=== PATIENT | male | born 1995 | race Caucasian/White ===

== ENCOUNTER 2016-09-16 19:41 | Inpatient (IN) | payer MEDICARE, MEDICAID ==
[~2016-09-16] VITALS: Ht 177.8 cm; Wt 147.6 kg
[~2016-09-16 19:41] MED LIST: AMOX-358 PO; BENZ200C25 PO; CARB15DR87 OT; CEFD300C3 PO; CLOM25CA2 PO; DICY10CA26; GUAN3TAB PO; MELA1TAB2 PO; MTR250T; OXCA300T4 PO; PRD20T PO; SULF1TAB38; TOPI200T19 PO
--- OUTSIDE RECORDS SUMMARY | 2016-09-16 19:46 | XMS REPORT | Continuity of Care Document ---
Author Author [facility] Organization [facility] Address Unknown Phone Unavailable Care Team Providers Care Staff Development Nurse Name Role Phone DARREN HOOKER DO PCP Insurance Providers Payer Name Policy Number Subscriber Name Relationship [facility] [employer] [id number] Keven Min E 18 Self / Same As Patient s Medicare [id number] Keven Min 18 Self / Same As Patient Advance Directives Directive Response Recorded Date/Time Advance Directives No 09/10/14 10:34pm Health Care Power of Global Recruiter No 09/10/14 10:34pm Organ Donor No 09/10/14 10:34pm Resuscitation Status Full Code 09/10/14 10:34pm Problems Medical Problems Problem Onset Date Status Upper respiratory infection Unknown Active Fever Unknown Active Post-tussive emesis Unknown Active Medications Medication Dose Route Sig Days/Qty Instructions Order Date Discontinued Date Status Trimethoprim/Sulfamethoxazole 11/10/07 05/16/10 Discontinued Metronidazole 11/10/07 05/16/10 Discontinued Dicyclomine HCl 11/10/07 05/16/10 Discontinued Topiramate 200 Mg PO BEDTIME 05/16/10 Active Oxcarbazepine 600 Mg PO TWICE A DAY 09/10/14 Active Guanfacine Hcl 3 Mg PO BEDTIME 09/10/14 Active Pyridoxine/Melatonin 10 Mg PO BEDTIME 09/10/14 Active Clomipramine Hcl 25 Mg PO BEDTIME 09/10/14 Active Benzonatate (Tessalon Perles) 1 Each PO THREE TIMES A DAY PRN COUGH 20 Qty 09/10/14 Active Social History Social History Problem Response Recorded Date/Time Alcohol Use Denies Use 09/10/2014 10:34pm Recreational Drug Use No 09/10/2014 10:34pm Recent Foreign Travel No 09/10/2014 10:34pm Sexually Transmitted Disease No 09/10/2014 10:34pm Smoking Status Never a Smoker 09/10/2014 10:34pm Query Response Start Date Stop Date Smoking Status Never a Smoker Hospital Discharge Instructions No hospital discharge instructions. Plan of Care No plan of care. Functional Status No functional status results. Allergies, Adverse Reactions, Alerts Allergen Type Severity Reaction Status Last Updated No Known Drug Allergies Allergy Unknown Active 11/10/07 Immunizations No immunization records. Vital Signs Acute Vital Signs Vital Response Date/Time Temperature (Fahrenheit) 100 degrees F (97.6 - 99.5) Temperature (Calculated Celsius) 37.7808 degrees C (36.4 - 37.5) Temperature Source Temporal Pulse Rate (adult) 95 bpm (60 - 90) Respiratory Rate 18 bpm (12 - 24) O2 Sat by Pulse Oximetry 97 % (88 - 100) Blood Pressure 162/96 mm Hg Pain Pain Intensity 5 Height (Feet) 5 feet Height (Inches) 10 inches Height (Calculated Centimeters) 177.379339 cm Weight (Pounds) 303 pounds Weight (Calculated Kilograms) 137.493397 kilograms Calculated BMI 43.47 Results No known relevant diagnostic tests, laboratory data and/or discharge summary. Procedures No known history of procedures. Encounters Encounter Location Date/Time Departed Emergency Room Via [facility] 09/10/14 10:08pm Recent Diagnosis
[2016-09-16] MEDS ORDERED: KETOROLAC 30 MG/ML VIAL IVP STA (20:52)
[2016-09-16] MEDS ORDERED: FAMOTIDINE 20MG/2ML IV (PEPCID) IV STA (20:52)
[2016-09-16] MEDS ORDERED: LACTATED RINGERS 1,000 ML IV ONE (20:52)
[2016-09-16 21:00] LABS: BASOPHILS # (AUTO) 0.1 10^3/uL (0.0-0.1); BASOPHILS % (AUTO) 0 % (0-10); EOSINOPHILS % (AUTO) 0 % (0-10); LYMPHOCYTES # (AUTO) 3.2 X 10^3 (1.0-4.0); LYMPHOCYTES % (AUTO) 21 % (12-44); MEAN CORPUSCULAR HEMOGLOBIN 28 PG (25-34); MEAN CORPUSCULAR HGB CONC 35 G/DL (32-36); MEAN CORPUSCULAR VOLUME 80 FL (80-99); MEAN PLATELET VOLUME 11.3 FL (7.4-10.4); MONOCYTES # (AUTO) 1.1 X 10^3 (0.0-1.0); MONOCYTES % (AUTO) 7 % (0-12); NEUTROPHILS # (AUTO) 10.5 X 10^3 (1.8-7.8); NEUTROPHILS % (AUTO) 71 % (42-75); PLATELET COUNT 248 10^3/uL (130-400); RED BLOOD COUNT 5.32 10^6/uL (4.35-5.85); RED CELL DISTRIBUTION WIDTH 13.2 % (10.0-14.5); WHITE BLOOD COUNT 14.8 10^3/uL (4.3-11.0)
[2016-09-16] MEDS ORDERED: ACETAMINOPHEN 500 MG TAB (TYLENOL) PO ONE (21:00)
[2016-09-16] MEDS ORDERED: ONDANSETRON 4 MG/2 ML (SDV) Z0FRAN IVP ONE (21:00)
[2016-09-16] MEDS ORDERED: IBUPROFEN 800 MG (MOTRIN) TAB PO ONE (21:00)
--- NOTE | 2016-09-16 21:03 | ED GI ---
General Chief Complaint: Abdominal/GI Problems Stated Complaint: BACK PAIN,ABD PAIN,NAUSEA Nursing Triage Note: PT MOTHER REPORTS PT WAS SOMPLAININGOF URINARY SYMPTOMS/STINGING ON THURSDAY. PT REPORTS BELLY PAIN AND NAUSEA STARTING TODAY. Sepsis Screen: Possible Sepsis Risk Source of Information: Patient, Family (MOM DOES NEARLY ALL TALKING FOR PT--PT WITH AUTISM, BUT CAN ANSWER QUESTIONS APPROPRIATELY) History of Present Illness Time Seen By Provider: 20:40 Initial Comments PT ARRIVES VIA POV C/O URINARY SYMPTOMS OF ODOR AND STINGING ON URINATION SINCE Thursday09/14/16 BEGAN HAVING GENERALIZED UPPER ABDOMINAL PAIN AND NAUSEA TODAY, AND SEVERE, SHARP MID AND LOWER BACK PAIN THIS EVENING HAD SUBJECTIVE FEVER JUST PRIOR TO ARRIVAL WHILE AT [facility] NO VOMITING HAD 3 NORMAL BM'S TODAY C/O DIZZINESS MOM GAVE VOLTAREN AT 1930 TONIGHT FOR FEVER PT WAS SEEN AT [facility] YESTERDAY AND UA WAS DONE AND REPORTED NORMAL. NO OTHER TESTS OR RX GIVEN Allergies and Home Medications Allergies Coded Allergies: oxcarbazepine (Unverified Allergy, Severe, RASH, 09/17/14) Home Medications Clomipramine Hcl 25 Mg Cap 25 MG PO HS (Reported) Guanfacine Hcl 3 Mg Tab.sr.24h 3 MG PO HS (Reported) Pyridoxine/Melatonin 1 Tab Tablet 10 MG PO HS (Reported) Topiramate 200 Mg Tablet 200 MG PO HS (Reported) Review of Systems Constitutional: see HPI fever EENTM: No Symptoms Reported Respiratory: No Symptoms Reported Cardiovascular: No Symptoms Reported Gastrointestinal: See HPI Abdominal PainDenies Constipated, Denies Diarrhea, NauseaDenies Vomiting Genitourinary: See HPI Burning Flank Pain Musculoskeletal: see HPI back pain Skin: no symptoms reported Psychiatric/Neurological: No Symptoms Reported (PT WITH AUTISM--NORMAL BASELINE) Endocrine: No Symptoms Reported Hematologic/Lymphatic: No Symptoms Reported Past Morvjue-Izveew-Yjtwrz Hx Patient Social History Alcohol Use: Denies Use Recreational Drug Use: No Smoking Status: Never a Smoker Recent Foreign Travel: No Contact w/Someone Who Travel: No Recent Infectious Disease Expo: No Recent Hopitalizations: No Physical Abuse Screen: No Sexual Abuse: No Seasonal Allergies Seasonal Allergies: No Surgeries HX Surgeries: Yes (BMT'S) Surgeries: Ear Surgery Respiratory Hx Respiratory Disorders: No Cardiovascular Hx Cardiac Disorders: No Neurological Hx Neurological Disorders: Yes (AUTISM) Neurological Disorders: Developmental Disorder Reproductive System Hx Reproductive Disorders: No Sexually Transmitted Disease: No Genitourinary Hx Genitourinary Disorders: No Gastrointestinal Hx Gastrointestinal Disorders: No Musculoskeletal Hx Musculoskeletal Disorders: No Endocrine Hx Endocrine Disorders: No HEENT HX ENT Disorders: Yes (S/P BMT'S) HEENT Disorders: Chronic Ear Infection Cancer Hx Cancer: No Psychosocial Hx Psychiatric Problems: Yes (AUTISM, MOOD DISORDER) Integumentary HX Skin/Integumentary Disorder: No Blood Transfusions Hx Blood Disorders: No Physical Exam Vital Signs VS - Last 72 Hours, by Label 09/16/16 09/16/16 09/16/16 09/16/16 20:37 20:40 21:10 21:40 Temp 102.1 102.1 102.1 100.2 Pulse 105 107 107 107 Resp 18 18 18 16 B/P 172/103 166/97 172/103 167/87 Pulse Ox 97 98 100 98 O2 Delivery Room Air Room Air Room Air 09/16/16 22:10 Temp 100.2 Pulse 103 Resp 16 B/P 167/87 Pulse Ox 97 O2 Delivery Room Air Capillary Refill : Less Than 3 Seconds General Appearance: no apparent distress obese other (FACE FLUSHED, SKIN WARM) HEENT: PERRL/EOMI normal ENT inspection Neck: non-tender full range of motion supple normal inspection Respiratory: normal breath sounds no respiratory distress no accessory muscle use Cardiovascular: regular rate, rhythm no murmur Gastrointestinal: normal bowel sounds soft no organomegaly no pulsatile massNo distended, No guarding, No rebound, tenderness (DIFFUSE MID ABDOMINAL TENDERNESS, AND BILATERAL FLANK TENDERNESS)No hernia, No mass Extremities: normal range of motion non-tender normal inspection no pedal edema no calf tenderness normal capillary refill Back: CVA tenderness (R) CVA tenderness (L) Neurologic/Psychiatric: revenue analyst II-XII nml as tested no motor/sensory deficits alert normal mood/affect oriented x 3 other (PT WITH AUTISM/DEVELOPMENTAL DELAY- -NORMAL BASELINE. PT CAN ANSWER QUESTIONS ON HIS OWN) Skin: normal color warm/dry Progress/Results/Core Measures Results/Orders Lab Results Laboratory Tests Test 09/16/16 20:36 09/16/16 21:15 09/16/16 21:53 Range/Units Alanine Aminotransferase (ALT/SGPT) 34 0-55 U/L Albumin 4.5 3.2-4.5 G/DL Alkaline Phosphatase 86 40-136 U/L Amylase Level 40 25-125 U/L Anion Gap 10 5-14 MMOL/L Aspartate Amino Transf (AST/SGOT) 13 5-34 U/L BUN/Creatinine Ratio 12 Band Neutrophils 0 % Basophils # (Auto) 0.1 0.0-0.1 10^3/uL Basophils % (Manual) 0 % Basophils (%) (Auto) 0 0-10 % Blood Morphology Comment NORMAL Blood Urea Nitrogen 14 7-18 MG/DL Calcium Level 9.3 8.5-10.1 MG/DL Carbon Dioxide Level 21 21-32 MMOL/L Chloride Level 105 98-107 MMOL/L Creatinine 1.16 0.60-1.30 MG/DL Eosinophils # (Auto) 0.0 0.0-0.3 10^3/uL Eosinophils % (Manual) 0 % Eosinophils (%) (Auto) 0 0-10 % Estimat Glomerular Filtration Rate > 60 Glucose Level 95 70-105 MG/DL Hematocrit 43 40-54 % Hemoglobin 15.0 13.3-17.7 G/DL Lipase 10 8-78 U/L Lymphocytes # (Auto) 3.2 1.0-4.0 X 10^3 Lymphocytes % (Manual) 29 % Lymphocytes (%) (Auto) 21 12-44 % Mean Corpuscular Hemoglobin 28 25-34 PG Mean Corpuscular Hemoglobin Concent 35 32-36 G/DL Mean Corpuscular Volume 80 80-99 FL Mean Platelet Volume 11.3 H 7.4-10.4 FL Monocytes # (Auto) 1.1 H 0.0-1.0 X 10^3 Monocytes % (Manual) 1 % Monocytes (%) (Auto) 7 0-12 % Neutrophils # (Auto) 10.5 H 1.8-7.8 X 10^3 Neutrophils % (Manual) 70 % Neutrophils (%) (Auto) 71 42-75 % Platelet Count 248 130-400 10^3/uL Potassium Level 3.8 3.6-5.0 MMOL/L Red Blood Count 5.32 4.35-5.85 10^6/uL Red Cell Distribution Width 13.2 10.0-14.5 % Sodium Level 136 135-145 MMOL/L Total Bilirubin 0.8 0.1-1.0 MG/DL Total Protein 7.4 6.4-8.2 G/DL White Blood Count 14.8 H 4.3-11.0 10^3/uL Lactic Acid Level 1.3 0.5-2.0 MMOL/L Urine Bacteria MODERATE H /HPF Urine Bilirubin NEGATIVE NEGATIVE Urine Casts NONE /LPF Urine Clarity CLEAR Urine Color YELLOW Urine Crystals NONE /LPF Urine Culture Indicated YES Urine Glucose (UA) NEGATIVE NEGATIVE Urine Ketones NEGATIVE NEGATIVE Urine Leukocyte Esterase 2+ H NEGATIVE Urine Mucus NEGATIVE /LPF Urine Nitrite POSITIVE H NEGATIVE Urine Protein 1+ H NEGATIVE Urine RBC 0-2 /HPF Urine RBC (Auto) 1+ H NEGATIVE Urine Specific [place] 1.020 1.016-1.022 Urine Squamous Epithelial Cells 0-2 /HPF Urine Urobilinogen 1 NORMAL MG/DL Urine WBC 10-25 H /HPF Urine pH 5 5-9 My Orders Orders-RANDY BANERJEE DO Saline Lock/Iv-Start (09/16/16 20:52) Amylase (09/16/16 20:52) Cbc With Automated Diff (09/16/16 20:52) Comprehensive Metabolic Panel (09/16/16 20:52) Lactic Acid Analyzer (09/16/16 20:52) Lipase (09/16/16 20:52) Ua Culture If Indicated (09/16/16 20:52) Blood Culture (09/16/16 20:52) Lactated Ringers (Lr 1000 Ml Iv Solution (09/16/16 20:52) Ondansetron Injection (Zofran Injectio (09/16/16 21:00) Famotidine Injection (Pepcid Injection) (09/16/16 20:52) Ketorolac Injection (Toradol Injection) (09/16/16 20:52) Acetaminophen Tablet (Tylenol Tablet) (09/16/16 21:00) Ibuprofen Tablet (Motrin Tablet) (09/16/16 21:00) Manual Differential (09/16/16 20:36) Ct Abd/Pelv W (Appendicitis) (09/16/16 21:26) Acute Abd Series (09/16/16 21:26) Urine Culture (09/16/16 21:53) Medications Given in ED Current Medications Medications Dose Ordered Sig/Patricia Route Start Time Stop Time Status Last Admin Dose Admin Acetaminophen 1,000 mg ONCE ONCE PO 09/16/16 21:00 09/16/16 21:01 DC 09/16/16 21:10 1,000 MG Ibuprofen 800 mg ONCE ONCE PO 09/16/16 21:00 09/16/16 21:01 DC 09/16/16 21:10 800 MG Lactated Ringer's 1,000 ml @ 0 mls/hr Q0M ONCE IV 09/16/16 20:52 09/16/16 20:54 DC 09/16/16 21:08 0 MLS/HR Ondansetron HCl 4 mg ONCE ONCE IVP 09/16/16 21:00 09/16/16 21:01 DC 09/16/16 21:10 4 MG Vital Signs/I&O Vital Sign - Last 12Hours 09/16/16 09/16/16 09/16/16 09/16/16 20:37 20:40 21:10 21:40 Temp 102.1 102.1 102.1 100.2 Pulse 105 107 107 107 Resp 18 18 18 16 B/P 172/103 166/97 172/103 167/87 Pulse Ox 97 98 100 98 O2 Delivery Room Air Room Air Room Air 09/16/16 22:10 Temp 100.2 Pulse 103 Resp 16 B/P 167/87 Pulse Ox 97 O2 Delivery Room Air Blood Pressure Mean: 126 Progress Note : Progress Note FEELS MUCH BETTER AT TIME OF ADMIT. PAIN IS BETTER, FEVER IS DOWN, AND NAUSEA IS EASED AFTER FLUIDS AND MEDICATIONS GIVEN. TEMP DOWN TO 98.6 AT TIME OF ADMIT BP DOWN ALSO AT TIME OF ADMIT Diagnostic Imaging Comments ACUTE ABDOMEN XRAYS--NON SPECIFIC BOWEL GAS, PENDING RADIOLOGIST REVIEW CT ABDOMEN/PELVIS--NO ACUTE PROCESS, FATTY LIVER, SPLENOMEGALY PER [facility] VIA FAX @ [phone] Reviewed: Reviewed by Me Departure Communication Progress Notes 2109--SPOKE WITH DR. HOOKER, ACCEPTS PT FOR ADMIT., WITH CT PENDING AT THIS TIME Impression Impression: Primary Impression: Sepsis Additional Impression: Pyelonephritis Disposition: ADMITTED INPATIENT Condition: Improved Decision to Admit Reason: Admit from ER (General) Decision to Admit/Date: Sep 16, 2016 Time/Decision to Admit Time: 22:30 Departure-Patient Inst. Referrals: DARREN HOOKER DO (PCP/Family) Primary Care Physician RANDY BANERJEE DO Sep 16, 2016 21:03
[2016-09-16 21:14] LABS: ALANINE AMINOTRANSFERASE 34 U/L (0-55); ALBUMIN 4.5 G/DL (3.2-4.5); AMYLASE 40 U/L (25-125); ANION GAP 10 MMOL/L (5-14); ASPARTATE AMINO TRANSFERASE 13 U/L (5-34); BILIRUBIN,TOTAL 0.8 MG/DL (0.1-1.0); BLOOD UREA NITROGEN 14 MG/DL (7-18); BUN/CREATININE RATIO 12; CALCIUM 9.3 MG/DL (8.5-10.1); CARBON DIOXIDE 21 MMOL/L (21-32); CHLORIDE 105 MMOL/L (98-107); CREATININE SERUM 1.16 MG/DL (0.60-1.30); GFR ESTIMATED > 60; GLUCOSE 95 MG/DL (70-105); LIPASE 10 U/L (8-78); POTASSIUM 3.8 MMOL/L (3.6-5.0); SODIUM 136 MMOL/L (135-145); TOTAL PROTEIN 7.4 G/DL (6.4-8.2)
[2016-09-16 21:21] LABS: BAND NEUTROPHILS 0 %; BASOPHILS % (MANUAL) 0 %; EOSINOPHILS % (MANUAL) 0 %; LYMPHOCYTES % (MANUAL) 29 %; NEUTROPHILS % (MANUAL) 70 %
[2016-09-16 22:06] LABS: BILIRUBIN,URINE NEGATIVE (NEGATIVE); KETONES,URINE NEGATIVE (NEGATIVE); LEUKOCYTE ESTERASE ,URINE 2+ (NEGATIVE); NITRITE,URINE POSITIVE (NEGATIVE); PH,URINE 5 (5-9); PROTEIN,URINE 1+ (NEGATIVE); UROBILINOGEN,URINE 1 MG/DL (NORMAL)
[2016-09-16 22:13] LABS: SQUAMOUS EPITHELIAL CELL,UR 0-2 /HPF
[2016-09-16] MEDS ORDERED: LEVOFLOXACIN 500 MG TAB (LEVAQUIN) PO STA (22:34)
[2016-09-16] MEDS ORDERED: cefTRIAXone INJECTION 1,000 MG in NORMAL SALINE (BAXTER MINI) 50 ML IV ONE (22:45)
[2016-09-16 23:30] VITALS: BP 133/60
[2016-09-17] MEDS ORDERED: ONDANSETRON 4 MG/2 ML (SDV) Z0FRAN IV PRN (00:45)
[2016-09-17] MEDS ORDERED: ACETAMINOPHEN 500 MG TAB (TYLENOL) PO PRN (00:45)
[2016-09-17] MEDS: D5 1/2 NS 1000 ML IV SOLUTION 1,000 ML IV SCH ×4 (01:03→21:37)
[2016-09-17 04:00] VITALS: BP 138/89
[2016-09-17 05:04] LABS: BASOPHILS # (AUTO) 0.1 10^3/uL (0.0-0.1); BASOPHILS % (AUTO) 1 % (0-10); EOSINOPHILS # (AUTO) 0.1 10^3/uL (0.0-0.3); EOSINOPHILS % (AUTO) 1 % (0-10); LYMPHOCYTES # (AUTO) 2.8 X 10^3 (1.0-4.0); LYMPHOCYTES % (AUTO) 25 % (12-44); MEAN CORPUSCULAR HEMOGLOBIN 28 PG (25-34); MEAN CORPUSCULAR HGB CONC 35 G/DL (32-36); MEAN CORPUSCULAR VOLUME 80 FL (80-99); MEAN PLATELET VOLUME 11.3 FL (7.4-10.4); MONOCYTES # (AUTO) 1.2 X 10^3 (0.0-1.0); MONOCYTES % (AUTO) 11 % (0-12); NEUTROPHILS % (AUTO) 63 % (42-75); PLATELET COUNT 208 10^3/uL (130-400); RED BLOOD COUNT 4.92 10^6/uL (4.35-5.85); RED CELL DISTRIBUTION WIDTH 13.2 % (10.0-14.5); WHITE BLOOD COUNT 11.1 10^3/uL (4.3-11.0)
[2016-09-17 05:35] LABS: ALANINE AMINOTRANSFERASE 26 U/L (0-55); ALBUMIN 3.9 G/DL (3.2-4.5); ANION GAP 10 MMOL/L (5-14); ASPARTATE AMINO TRANSFERASE 10 U/L (5-34); BILIRUBIN,TOTAL 0.7 MG/DL (0.1-1.0); BLOOD UREA NITROGEN 11 MG/DL (7-18); BUN/CREATININE RATIO 12; CALCIUM 8.7 MG/DL (8.5-10.1); CARBON DIOXIDE 20 MMOL/L (21-32); CHLORIDE 108 MMOL/L (98-107); CREATININE SERUM 0.95 MG/DL (0.60-1.30); GFR ESTIMATED > 60; GLUCOSE 109 MG/DL (70-105); POTASSIUM 3.4 MMOL/L (3.6-5.0); SODIUM 138 MMOL/L (135-145); TOTAL PROTEIN 6.4 G/DL (6.4-8.2)
--- NOTE | 2016-09-17 06:36 | Diagnostic Imaging Report ---
INDICATION: Abdominal pain. PA chest, supine and upright abdominal images were obtained. FINDINGS: Lungs are clear. Bowel gas pattern is normal. There are no pathologic masses or calcifications. IMPRESSION: No acute abnormalities in the abdomen. Dictated by: Dictated on workstation # [id number]
[2016-09-17] MEDS ORDERED: FLU TRIvalent (5 YOA+) 2016-17 (AFLURIA) 0.5 ML IM ONE (07:00)
[2016-09-17 08:00] VITALS: BP 141/83
[2016-09-17] MEDS ORDERED: CATHETER FLUSH 10 ML SYR IV PRN (08:00)
[2016-09-17] MEDS: IBUPROFEN 800 MG (MOTRIN) TAB PO PRN ×2 (08:04→14:32)
--- NOTE | 2016-09-17 08:14 | Diagnostic Imaging Report ---
PROCEDURE: CT abdomen and pelvis with contrast, rule out appendicitis. TECHNIQUE: Multiple contiguous axial images were obtained through the abdomen and pelvis after the administration of intravenous contrast. INDICATION: Abdominal pain. Nausea and vomiting. 100 mL of Omnipaque 350 was administered intravenously. FINDINGS: The lung bases appear clear. There is diffuse hepatic steatosis. The spleen is mildly enlarged measuring 14.3 x 7.2 x 14.3 CM. The pancreas, and adrenal glands appear unremarkable. The gallbladder demonstrate no calcified stones. The kidneys have symmetric enhancement and excretion. There is no hydronephrosis. There is no bowel obstruction. No free fluid or fluid collection is seen in the abdomen or pelvis. The appendix is normal. The terminal ileum appears normal. The osseous structures appear grossly unremarkable. The abdominal aorta is relatively small in caliber, probably still within normal limits. There is no para-aortic significantly enlarged lymph nodes. IMPRESSION: 1. The appendix is normal. 2. Splenomegaly. 2. Hepatic steatosis. Dictated by: Dictated on workstation # [id number]
--- NOTE | 2016-09-17 08:31 | History & Physicial ---
History of Present Illness History of Present Illness Reason for visit/HPI came home from work Thursday night stating that problem urinating and hurting them back pain. Patient had a UA checked and was clear then. Last night at 730 p.m. patient had abdominal pain and back pain and hurt to urinate Patient running an elevated temperature. Patient came out to the emergency room and UA shows infection. CAT scan shows fatty liver. Patient has a history of autism Date of Admission Sep 16, 2016 at 22:30 I consulted on this patient on 09/17/16 08:27 Attending Physician Ortega Hooker DO Admitting Physician Ortega Hooker DO Consult Allergies and Home Medications Allergies Coded Allergies: oxcarbazepine (Unverified Allergy, Severe, RASH, 09/17/14) Home Medications Clomipramine Hcl 25 Mg Cap 25 MG PO HS (Reported) Guanfacine Hcl 3 Mg Tab.sr.24h 3 MG PO HS (Reported) Pyridoxine/Melatonin 1 Tab Tablet 10 MG PO HS (Reported) Topiramate 200 Mg Tablet 200 MG PO HS (Reported) Past Cvnochq-Djcqep-Uarqar Hx Patient Social History Marrital Status: single Alcohol Use: Denies Use Recreational Drug Use: No Smoking Status: Never a Smoker Physical Abuse Screen: No Sexual Abuse: No Recent Foreign Travel: No Contact w/other who traveled: No Recent Hopitalizations: No Recent Infectious Disease Expo: No Seasonal Allergies Seasonal Allergies: No Surgeries HX Surgeries: Yes (BMT'S) Surgeries: Ear Surgery Respiratory Hx Respiratory Disorders: No Cardiovascular Hx Cardiovascular Disorders: No Neurological Hx Neurological Disorders: Yes (AUTISM) Neurological Disorders: Developmental Disorder Reproductive System Hx Reproductive Disorders: No Sexually Transmitted Disease: No Genitourinary Hx Genitourinary Disorders: No Gastrointestinal Hx Gastrointestinal Disorders: No Musculoskeletal Hx Musculoskeletal Disorders: No Endocrine Hx Endocrine Disorders: No HEENT HX ENT Disorders: Yes (S/P BMT'S) HEENT Disorders: Chronic Ear Infection Cancer Hx Cancer: No Psychosocial Hx Psychiatric Problems: Yes (AUTISM, MOOD DISORDER) Integumentary HX Skin/Integumentary Disorder: No Blood Transfusions Hx Blood Disorders: No Adverse Reaction to a Blood Tr: No Family Medical History Family Hx: AIDS 19 FATHER Asthma G8 BROTHER Myocardial infarction 19 FATHER Constitutional: fever weakness other (back pain and abdominal pain) EENTM: no symptoms reported Respiratory: no symptoms reported Cardiovascular: no symptoms reported Gastrointestinal: RLQ LLQ Genitourinary: decreased output dysuria pain Physical Exam Vital Signs Vital Sign - Last 12Hours 09/16/16 20:37 Temp 102.1 Pulse 105 Resp 18 B/P 172/103 Pulse Ox 97 O2 Delivery Room Air Capillary Refill : Less Than 3 Seconds General Appearance: No Apparent Distress Eyes: Bilateral Eye Normal Inspection HEENT: Normal ENT Inspection Neck: Full Range of Motion Normal Inspection Respiratory: Chest Non Tender Lungs Clear Normal Breath Sounds No Accessory Muscle Use No Respiratory Distress Cardiovascular: Regular Rate, Rhythm No Murmur Gastrointestinal: Non Tender Soft Assessment/Plan Assessment and Plan sepsis. infection. Pyelonephritis Clinical Quality Measures DVT/VTE Risk/Contraindication: Risk Factor Score Per Nursin RFS Level Per Nursing on Admit: 4+=Very High ORTEGA HOOKER DO Sep 17, 2016 08:31
[2016-09-17] MEDS ORDERED: KCL 10 MEQ TAB (MICRO K) PO NR (08:38)
[2016-09-17] MEDS: ENOXAPARIN 40 MG/0.4 ML (LOVENOX) SYR SC SCH (09:18)
--- NOTE | 2016-09-17 09:35 | Physician Query-General Query ---
Physician Query-General Query to Physician: Please clarify pyelonephritis as acute, chronic,unspecified,or other? PHYSICIAN RESPONSE: Based on the clinical findings in the record, please respond to the query above on this document as an addendum. Possible, probable, or questionable diagnosis can be coded for INPATIENTS ONLY. Physician Response: Physician Response acute If you have questions please contact: Technical Support Manager:Mojgan Landa [facility] Ext:[phone] Thank you for your time and cooperation. Clinical Ell Teacher/Technical Support Manager This is a permanent part of the medical record MOJGAN LANDA Sep 17, 2016 09:35 DARREN HOOKER DO Sep 18, 2016 07:12
[2016-09-17] MEDS ORDERED: GUAN3TAB3 PO (09:54)
[2016-09-17] MEDS ORDERED: TOPI200T8 PO (09:54)
[2016-09-17] MEDS ORDERED: CLOM25CA2 PO (09:54)
[2016-09-17] MEDS ORDERED: LURA60TA2 PO (09:54)
[2016-09-17 13:00] VITALS: BP 128/82
[2016-09-17 16:40] VITALS: BP 138/88
[2016-09-17] MEDS ORDERED: PATIENT MAY USE OWN MEDS, ALL MC SCH (17:45)
[2016-09-17 19:25] VITALS: BP 139/92
[2016-09-17] MEDS: MELATONIN 3 MG TABLET PO SCH (20:12)
[2016-09-17] MEDS: toPIRamate 100 MG (TOPAMAX) TAB PO SCH (20:12)
[2016-09-17] MEDS: GUANFACINE 3 MG PO SCH (20:13)
[2016-09-17] MEDS: CLOMIPRAMINE 25 MG PO SCH (20:14)
[2016-09-17] MEDS ORDERED: MELATONIN PO SCH (21:00)
[2016-09-17] MEDS ORDERED: PYRIDOXINE PO SCH (21:00)
[2016-09-17] MEDS: cefTRIAXone 1 GM/NS 50 ML IVPB IV SCH ×2 (23:32)
[2016-09-18] VITALS: BP 154/81
[2016-09-18 04:00] VITALS: BP 150/80
[2016-09-18] MEDS: D5 1/2 NS 1000 ML IV SOLUTION 1,000 ML IV SCH (05:26)
[2016-09-18 06:08] LABS: BASOPHILS % (AUTO) 1 % (0-10); EOSINOPHILS # (AUTO) 0.1 10^3/uL (0.0-0.3); EOSINOPHILS % (AUTO) 1 % (0-10); LYMPHOCYTES # (AUTO) 2.5 X 10^3 (1.0-4.0); LYMPHOCYTES % (AUTO) 33 % (12-44); MEAN CORPUSCULAR HEMOGLOBIN 28 PG (25-34); MEAN CORPUSCULAR HGB CONC 35 G/DL (32-36); MEAN CORPUSCULAR VOLUME 81 FL (80-99); MEAN PLATELET VOLUME 11.1 FL (7.4-10.4); MONOCYTES % (AUTO) 13 % (0-12); NEUTROPHILS # (AUTO) 4.1 X 10^3 (1.8-7.8); NEUTROPHILS % (AUTO) 54 % (42-75); PLATELET COUNT 227 10^3/uL (130-400); RED BLOOD COUNT 4.82 10^6/uL (4.35-5.85); RED CELL DISTRIBUTION WIDTH 13.3 % (10.0-14.5); WHITE BLOOD COUNT 7.7 10^3/uL (4.3-11.0)
[2016-09-18 06:33] LABS: ANION GAP 10 MMOL/L (5-14); BLOOD UREA NITROGEN 6 MG/DL (7-18); BUN/CREATININE RATIO 7; CALCIUM 8.6 MG/DL (8.5-10.1); CARBON DIOXIDE 19 MMOL/L (21-32); CHLORIDE 110 MMOL/L (98-107); CREATININE SERUM 0.89 MG/DL (0.60-1.30); GFR ESTIMATED > 60; GLUCOSE 105 MG/DL (70-105); POTASSIUM 3.8 MMOL/L (3.6-5.0); SODIUM 139 MMOL/L (135-145)
[2016-09-18 06:47] LABS: BILIRUBIN,URINE NEGATIVE (NEGATIVE); KETONES,URINE NEGATIVE (NEGATIVE); LEUKOCYTE ESTERASE ,URINE NEGATIVE (NEGATIVE); NITRITE,URINE NEGATIVE (NEGATIVE); PH,URINE 8 (5-9); PROTEIN,URINE NEGATIVE (NEGATIVE); SQUAMOUS EPITHELIAL CELL,UR RARE /HPF; UROBILINOGEN,URINE 4 MG/DL (NORMAL)
--- NOTE | 2016-09-18 07:29 | Progress Note (SOAP) ---
Subjective Subjective/Events-last exam patient states he feels 50 percent better. Patient still has some pain in the back. UA today looks better. White blood cell count from 14,800 today is 7700. Preliminary culture Escherichia coli and gram-positive cocci of urine. Waiting for sensitivity Objective Exam Vital Signs Date Time Temp Pulse Resp B/P Pulse Ox O2 Delivery O2 Flow Rate FiO2 09/18/16 04:00 97.7 84 20 150/80 98 Room Air 09/18/16 00:00 97.9 87 20 154/81 98 Room Air 09/17/16 20:15 Room Air 09/17/16 19:25 99.4 86 20 139/92 98 Room Air 09/17/16 16:40 99.0 84 18 138/88 98 Room Air 09/17/16 13:00 97.6 81 18 128/82 96 Room Air 09/17/16 09:00 Room Air 09/17/16 08:00 99.0 95 18 141/83 97 Room Air I & O 09/18/16 07:00 Intake Total 6070 ml Output Total 1325 ml Balance 4745 ml Capillary Refill : Less Than 3 SecondsLess Than 3 Seconds General Appearance: No Apparent Distress WD/WN HEENT: Normal ENT Inspection Neck: Full Range of Motion Non Tender Respiratory: Chest Non Tender Lungs Clear Normal Breath Sounds No Accessory Muscle Use Cardiovascular: Regular Rate, Rhythm No Murmur Gastrointestinal: non tender soft Results Lab Laboratory Tests 09/18/16 05:38: Anion Gap 10, BUN/Creatinine Ratio 7, Basophils # (Auto) 0.0, Basophils (%) ( Auto) 1, Blood Urea Nitrogen 6L, Calcium Level 8.6, Carbon Dioxide Level 19L, Chloride Level 110H, Creatinine 0.89, Eosinophils # (Auto) 0.1, Eosinophils (%) (Auto) 1, Estimat Glomerular Filtration Rate > 60, Glucose Level 105, Hematocrit 39L, Hemoglobin 13.5, Lymphocytes # (Auto) 2.5, Lymphocytes (%) (Auto ) 33, Mean Corpuscular Hemoglobin 28, Mean Corpuscular Hemoglobin Concent 35, Mean Corpuscular Volume 81, Mean Platelet Volume 11.1H, Monocytes # (Auto) 1.0, Monocytes (%) (Auto) 13H, Neutrophils # (Auto) 4.1, Neutrophils (%) (Auto) 54, Platelet Count 227, Potassium Level 3.8, Red Blood Count 4.82, Red Cell Distribution Width 13.3, Sodium Level 139, White Blood Count 7.7 09/18/16 06:25: Urine Amorphous Sediment MOD IRINA PHOSPHATEH, Urine Bacteria FEWH, Urine Bilirubin NEGATIVE, Urine Casts NONE, Urine Clarity CLEAR, Urine Color YELLOW, Urine Crystals NONE, Urine Culture Indicated YES, Urine Glucose (UA) NEGATIVE, Urine Ketones NEGATIVE, Urine Leukocyte Esterase NEGATIVE, Urine Mucus NEGATIVE , Urine Nitrite NEGATIVE, Urine Protein NEGATIVE, Urine RBC NONE, Urine RBC ( Auto) NEGATIVE, Urine Specific [place] 1.015L, Urine Squamous Epithelial Cells RARE, Urine Urobilinogen 4H, Urine WBC 5-10H, Urine pH 8 Microbiology 09/16/16 Blood Culture - Preliminary, Resulted No growth 09/16/16 Urine Culture - Preliminary, Resulted Escherichia Coli Gram Positive Cocci In Chains Assessment/Plan Assessment/Plan Assess & Plan/Chief Complaint acute pyelonephritis. Escherichia coli. Gram-positive cocci. Leukocytosis resolved. Afebrile area Plan to discharge tomorrow Diagnosis/Problems: Clinical Quality Measures DVT/VTE Risk/Contraindication: Risk Factor Score Per Nursin RFS Level Per Nursing on Admit: 4+=Very High DARREN HOOKER DO Sep 18, 2016 07:29
[2016-09-18 08:00] VITALS: BP 135/81
[2016-09-18] MEDS: ENOXAPARIN 40 MG/0.4 ML (LOVENOX) SYR SC SCH (08:17)
[2016-09-18] MEDS: LATUDA 60 MG PO SCH (08:19)
[2016-09-18 13:00] VITALS: BP 107/70
[2016-09-18 16:00] VITALS: BP 130/82
[2016-09-18 19:15] VITALS: BP 139/77
[2016-09-18] MEDS: toPIRamate 100 MG (TOPAMAX) TAB PO SCH (20:41)
[2016-09-18] MEDS: IBUPROFEN 800 MG (MOTRIN) TAB PO PRN (20:41)
[2016-09-18] MEDS: MELATONIN 3 MG TABLET PO SCH (20:41)
[2016-09-18] MEDS: GUANFACINE 3 MG PO SCH (20:43)
[2016-09-18] MEDS: CLOMIPRAMINE 25 MG PO SCH (20:44)
[2016-09-18] MEDS: cefTRIAXone 1 GM/NS 50 ML IVPB IV SCH ×2 (23:24)
[2016-09-19] VITALS: BP 146/83
[2016-09-19 06:34] LABS: BASOPHILS # (AUTO) 0.1 10^3/uL (0.0-0.1); BASOPHILS % (AUTO) 1 % (0-10); EOSINOPHILS # (AUTO) 0.1 10^3/uL (0.0-0.3); EOSINOPHILS % (AUTO) 2 % (0-10); LYMPHOCYTES # (AUTO) 3.6 X 10^3 (1.0-4.0); LYMPHOCYTES % (AUTO) 44 % (12-44); MEAN CORPUSCULAR HEMOGLOBIN 28 PG (25-34); MEAN CORPUSCULAR HGB CONC 34 G/DL (32-36); MEAN CORPUSCULAR VOLUME 81 FL (80-99); MEAN PLATELET VOLUME 11.6 FL (7.4-10.4); MONOCYTES # (AUTO) 0.8 X 10^3 (0.0-1.0); MONOCYTES % (AUTO) 10 % (0-12); NEUTROPHILS # (AUTO) 3.5 X 10^3 (1.8-7.8); NEUTROPHILS % (AUTO) 43 % (42-75); PLATELET COUNT 247 10^3/uL (130-400); RED BLOOD COUNT 4.98 10^6/uL (4.35-5.85); RED CELL DISTRIBUTION WIDTH 13.3 % (10.0-14.5); WHITE BLOOD COUNT 8.1 10^3/uL (4.3-11.0)
[2016-09-19 06:59] LABS: ANION GAP 10 MMOL/L (5-14); BLOOD UREA NITROGEN 10 MG/DL (7-18); BUN/CREATININE RATIO 11; CALCIUM 8.5 MG/DL (8.5-10.1); CARBON DIOXIDE 20 MMOL/L (21-32); CHLORIDE 110 MMOL/L (98-107); CREATININE SERUM 0.91 MG/DL (0.60-1.30); GFR ESTIMATED > 60; GLUCOSE 90 MG/DL (70-105); POTASSIUM 3.8 MMOL/L (3.6-5.0); SODIUM 140 MMOL/L (135-145)
--- NOTE | 2016-09-19 07:29 | Progress Note (SOAP) ---
Subjective Subjective/Events-last exam acute pyelonephritis. Urinary tract infection. Patient feeling much better today. Patient slept all night long. Patient not running an elevated temperature. Plan to discharge today on antibiotic. Waiting for enterococcus sensitivity. Escherichia coli sensitive to Rocephin Objective Exam Vital Signs Date Time Temp Pulse Resp B/P Pulse Ox O2 Delivery O2 Flow Rate FiO2 09/19/16 00:00 97.1 68 18 146/83 98 Room Air 09/18/16 21:00 Room Air 09/18/16 20:41 99.1 09/18/16 19:15 99.1 89 16 139/77 95 09/18/16 16:00 98.3 99 16 130/82 96 09/18/16 13:00 99.1 91 20 107/70 96 09/18/16 08:51 Room Air 09/18/16 08:00 99.0 85 18 135/81 97 I & O 09/19/16 07:00 Intake Total 2009 ml Balance 2009 ml Capillary Refill : Less Than 3 SecondsLess Than 3 Seconds General Appearance: No Apparent Distress WD/WN HEENT: Normal ENT Inspection Neck: Full Range of Motion Normal Inspection Respiratory: Chest Non Tender Lungs Clear Normal Breath Sounds No Accessory Muscle Use No Respiratory Distress Cardiovascular: Regular Rate, Rhythm No Murmur Gastrointestinal: non tender soft Results Lab Laboratory Tests 09/19/16 05:38 Laboratory Tests 09/19/16 05:38: Anion Gap 10, BUN/Creatinine Ratio 11, Basophils # (Auto) 0.1, Basophils (%) ( Auto) 1, Blood Urea Nitrogen 10, Calcium Level 8.5, Carbon Dioxide Level 20L, Chloride Level 110H, Creatinine 0.91, Eosinophils # (Auto) 0.1, Eosinophils (%) (Auto) 2, Estimat Glomerular Filtration Rate > 60, Glucose Level 90, Hematocrit 41, Hemoglobin 13.8, Lymphocytes # (Auto) 3.6, Lymphocytes (%) (Auto) 44, Mean Corpuscular Hemoglobin 28, Mean Corpuscular Hemoglobin Concent 34, Mean Corpuscular Volume 81, Mean Platelet Volume 11.6H, Monocytes # (Auto) 0.8, Monocytes (%) (Auto) 10, Neutrophils # (Auto) 3.5, Neutrophils (%) (Auto) 43, Platelet Count 247, Potassium Level 3.8, Red Blood Count 4.98, Red Cell Distribution Width 13.3, Sodium Level 140, White Blood Count 8.1 Microbiology 09/16/16 Blood Culture - Preliminary, Resulted No growth 09/16/16 Urine Culture - Preliminary, Resulted Escherichia Coli Enterococcus Species Assessment/Plan Assessment/Plan Assess & Plan/Chief Complaint acute pyelonephritis. Escherichia coli. Gram-positive cocci. Leukocytosis resolved. Afebrile area Plan to discharge tomorrow. . 09/19/16. Acute pyelonephritis. Escherichia coli and enterococcus. Leukocytosis resolved. Patient feeling good. Plan to discharge today. 2 office on Thursday with urine analysis Diagnosis/Problems: Clinical Quality Measures DVT/VTE Risk/Contraindication: Risk Factor Score Per Nursin RFS Level Per Nursing on Admit: 4+=Very High DARREN HOOKER DO Sep 19, 2016 07:29
[2016-09-19 08:00] VITALS: BP 138/89
[2016-09-19] MEDS: ENOXAPARIN 40 MG/0.4 ML (LOVENOX) SYR SC SCH (08:37)
[2016-09-19] MEDS: LATUDA 60 MG PO SCH (08:38)
[2016-09-19] MEDS ORDERED: NITR100C PO (11:10)
[2016-09-19 16:10] VITALS: BP 138/89
--- NOTE | 2016-09-23 07:23 | Discharge Summary ---
Diagnosis/Chief Complaint Date of Admission Sep 16, 2016 at 22:30 Date of Discharge Sep 19, 2016 at 16:10 Discharge Date: Sep 19, 2016 Admission Diagnosis Admission Diagnosis sepsis. infection. Pyelonephritis Discharge Diagnosis sepsis. Sepsis due to Escherichia coli. Sepsis due to enterococcus. Acute pyelonephritis. infection. Autistic disorder. Fatty change of liver Reason Hospital Visit came home from work Thursday night stating that problem urinating and hurting them back pain. Patient had a UA checked and was clear then. Last night at 730 p.m. patient had abdominal pain and back pain and hurt to urinate Patient running an elevated temperature. Patient came out to the emergency room and UA shows infection. CAT scan shows fatty liver. Patient has a history of autism Discharge Summary Discharge Physical Examination Allergies: Coded Allergies: oxcarbazepine (Unverified Allergy, Severe, RASH, 09/17/14) Vitals & I&Os Vital Signs Date Time Temp Pulse Resp B/P Pulse Ox O2 Delivery O2 Flow Rate FiO2 09/19/16 16:10 67 16 138/89 96 Room Air 09/19/16 08:00 98.4 Hospital Course patient in hospital felt better. Leukocytosis resolved. UA better. Patient sent home on antibiotics Patient afebrile. Patient not having any abdominal pain and patient wanted to go home Labs (last 24 hrs) Laboratory Tests 09/16/16 20:36: Alanine Aminotransferase (ALT/SGPT) 34, Albumin 4.5, Alkaline Phosphatase 86, Amylase Level 40, Anion Gap 10, Aspartate Amino Transf (AST/SGOT) 13, BUN/ Creatinine Ratio 12, Band Neutrophils 0, Basophils # (Auto) 0.1, Basophils % ( Manual) 0, Basophils (%) (Auto) 0, Blood Morphology Comment NORMAL, Blood Urea Nitrogen 14, Calcium Level 9.3, Carbon Dioxide Level 21, Chloride Level 105, Creatinine 1.16, Eosinophils # (Auto) 0.0, Eosinophils % (Manual) 0, Eosinophils (%) (Auto) 0, Estimat Glomerular Filtration Rate > 60, Glucose Level 95, Hematocrit 43, Hemoglobin 15.0, Lipase 10, Lymphocytes # (Auto) 3.2, Lymphocytes % (Manual) 29, Lymphocytes (%) (Auto) 21, Mean Corpuscular Hemoglobin 28, Mean Corpuscular Hemoglobin Concent 35, Mean Corpuscular Volume 80, Mean Platelet Volume 11.3H, Monocytes # (Auto) 1.1H, Monocytes % (Manual) 1 , Monocytes (%) (Auto) 7, Neutrophils # (Auto) 10.5H, Neutrophils % (Manual) 70 , Neutrophils (%) (Auto) 71, Platelet Count 248, Potassium Level 3.8, Red Blood Count 5.32, Red Cell Distribution Width 13.2, Sodium Level 136, Total Bilirubin 0.8, Total Protein 7.4, White Blood Count 14.8H 09/16/16 21:15: Lactic Acid Level 1.3 09/16/16 21:53: Urine Bacteria MODERATEH, Urine Bilirubin NEGATIVE, Urine Casts NONE, Urine Clarity CLEAR, Urine Color YELLOW, Urine Crystals NONE, Urine Culture Indicated YES, Urine Glucose (UA) NEGATIVE, Urine Ketones NEGATIVE, Urine Leukocyte Esterase 2+H, Urine Mucus NEGATIVE, Urine Nitrite POSITIVEH, Urine Protein 1+H, Urine RBC 0-2, Urine RBC (Auto) 1+H, Urine Specific [place] 1.020, Urine Squamous Epithelial Cells 0-2, Urine Urobilinogen 1, Urine WBC 10-25H, Urine pH 5 09/17/16 04:49: Alanine Aminotransferase (ALT/SGPT) 26, Albumin 3.9, Alkaline Phosphatase 73, Anion Gap 10, Aspartate Amino Transf (AST/SGOT) 10, BUN/Creatinine Ratio 12, Basophils # (Auto) 0.1, Basophils (%) (Auto) 1, Blood Urea Nitrogen 11, Calcium Level 8.7, Carbon Dioxide Level 20L, Chloride Level 108H, Creatinine 0.95, Eosinophils # (Auto) 0.1, Eosinophils (%) (Auto) 1, Estimat Glomerular Filtration Rate > 60, Glucose Level 109H, Hematocrit 39L, Hemoglobin 13.7, Lymphocytes # (Auto) 2.8, Lymphocytes (%) (Auto) 25, Mean Corpuscular Hemoglobin 28, Mean Corpuscular Hemoglobin Concent 35, Mean Corpuscular Volume 80, Mean Platelet Volume 11.3H, Monocytes # (Auto) 1.2H, Monocytes (%) (Auto) 11 , Neutrophils # (Auto) 7.0, Neutrophils (%) (Auto) 63, Platelet Count 208, Potassium Level 3.4L, Red Blood Count 4.92, Red Cell Distribution Width 13.2, Sodium Level 138, Total Bilirubin 0.7, Total Protein 6.4, White Blood Count 11.1H 1/19/17 05:38: Anion Gap 10, BUN/Creatinine Ratio 7, Basophils # (Auto) 0.0, Basophils (%) ( Auto) 1, Blood Urea Nitrogen 6L, Calcium Level 8.6, Carbon Dioxide Level 19L, Chloride Level 110H, Creatinine 0.89, Eosinophils # (Auto) 0.1, Eosinophils (%) (Auto) 1, Estimat Glomerular Filtration Rate > 60, Glucose Level 105, Hematocrit 39L, Hemoglobin 13.5, Lymphocytes # (Auto) 2.5, Lymphocytes (%) (Auto ) 33, Mean Corpuscular Hemoglobin 28, Mean Corpuscular Hemoglobin Concent 35, Mean Corpuscular Volume 81, Mean Platelet Volume 11.1H, Monocytes # (Auto) 1.0, Monocytes (%) (Auto) 13H, Neutrophils # (Auto) 4.1, Neutrophils (%) (Auto) 54, Platelet Count 227, Potassium Level 3.8, Red Blood Count 4.82, Red Cell Distribution Width 13.3, Sodium Level 139, White Blood Count 7.7 09/18/16 06:25: Urine Amorphous Sediment MOD IRINA PHOSPHATEH, Urine Bacteria FEWH, Urine Bilirubin NEGATIVE, Urine Casts NONE, Urine Clarity CLEAR, Urine Color YELLOW, Urine Crystals NONE, Urine Culture Indicated YES, Urine Glucose (UA) NEGATIVE, Urine Ketones NEGATIVE, Urine Leukocyte Esterase NEGATIVE, Urine Mucus NEGATIVE , Urine Nitrite NEGATIVE, Urine Protein NEGATIVE, Urine RBC NONE, Urine RBC ( Auto) NEGATIVE, Urine Specific [place] 1.015L, Urine Squamous Epithelial Cells RARE, Urine Urobilinogen 4H, Urine WBC 5-10H, Urine pH 8 09/19/16 05:38: Anion Gap 10, BUN/Creatinine Ratio 11, Basophils # (Auto) 0.1, Basophils (%) ( Auto) 1, Blood Urea Nitrogen 10, Calcium Level 8.5, Carbon Dioxide Level 20L, Chloride Level 110H, Creatinine 0.91, Eosinophils # (Auto) 0.1, Eosinophils (%) (Auto) 2, Estimat Glomerular Filtration Rate > 60, Glucose Level 90, Hematocrit 41, Hemoglobin 13.8, Lymphocytes # (Auto) 3.6, Lymphocytes (%) (Auto) 44, Mean Corpuscular Hemoglobin 28, Mean Corpuscular Hemoglobin Concent 34, Mean Corpuscular Volume 81, Mean Platelet Volume 11.6H, Monocytes # (Auto) 0.8, Monocytes (%) (Auto) 10, Neutrophils # (Auto) 3.5, Neutrophils (%) (Auto) 43, Platelet Count 247, Potassium Level 3.8, Red Blood Count 4.98, Red Cell Distribution Width 13.3, Sodium Level 140, White Blood Count 8.1 Microbiology 09/16/16 Blood Culture - Final, Complete No growth 09/18/16 Urine Culture - Final, Complete NO GROWTH Laboratory Tests 09/16/16 20:36 09/17/16 04:49 09/18/16 05:38 09/19/16 05:38 Pending Labs Microbiology Date/Time Source Procedure Growth Status 09/16/16 21:38 Peripheral Lt Hand Blood Culture - Final No growth Complete 09/16/16 21:15 Peripheral Rt Ac Blood Culture - Final No growth Complete 09/18/16 06:25 Urine Clean Catch Urine Culture - Final NO GROWTH Complete 09/16/16 21:53 Urine Clean Catch Urine Culture - Final Escherichia Coli Enterococcus Faecalis Complete Laboratory Tests 09/16/16 20:36: Alanine Aminotransferase (ALT/SGPT) 34, Albumin 4.5, Alkaline Phosphatase 86, Amylase Level 40, Anion Gap 10, Aspartate Amino Transf (AST/SGOT) 13, BUN/ Creatinine Ratio 12, Band Neutrophils 0, Basophils # (Auto) 0.1, Basophils % ( Manual) 0, Basophils (%) (Auto) 0, Blood Morphology Comment NORMAL, Blood Urea Nitrogen 14, Calcium Level 9.3, Carbon Dioxide Level 21, Chloride Level 105, Creatinine 1.16, Eosinophils # (Auto) 0.0, Eosinophils % (Manual) 0, Eosinophils (%) (Auto) 0, Estimat Glomerular Filtration Rate > 60, Glucose Level 95, Hematocrit 43, Hemoglobin 15.0, Lipase 10, Lymphocytes # (Auto) 3.2, Lymphocytes % (Manual) 29, Lymphocytes (%) (Auto) 21, Mean Corpuscular Hemoglobin 28, Mean Corpuscular Hemoglobin Concent 35, Mean Corpuscular Volume 80, Mean Platelet Volume 11.3, Monocytes # (Auto) 1.1, Monocytes % (Manual) 1, Monocytes (%) (Auto) 7, Neutrophils # (Auto) 10.5, Neutrophils % (Manual) 70, Neutrophils (%) (Auto) 71, Platelet Count 248, Potassium Level 3.8, Red Blood Count 5.32, Red Cell Distribution Width 13.2, Sodium Level 136, Total Bilirubin 0.8, Total Protein 7.4, White Blood Count 14.8 09/16/16 21:15: Lactic Acid Level 1.3 09/16/16 21:53: Urine Bacteria MODERATE, Urine Bilirubin NEGATIVE, Urine Casts NONE, Urine Clarity CLEAR, Urine Color YELLOW, Urine Crystals NONE, Urine Culture Indicated YES, Urine Glucose (UA) NEGATIVE, Urine Ketones NEGATIVE, Urine Leukocyte Esterase 2+, Urine Mucus NEGATIVE, Urine Nitrite POSITIVE, Urine Protein 1+, Urine RBC 0-2, Urine RBC (Auto) 1+, Urine Specific [place] 1.020, Urine Squamous Epithelial Cells 0-2, Urine Urobilinogen 1, Urine WBC 10-25, Urine pH 5 09/17/16 04:49: Alanine Aminotransferase (ALT/SGPT) 26, Albumin 3.9, Alkaline Phosphatase 73, Anion Gap 10, Aspartate Amino Transf (AST/SGOT) 10, BUN/Creatinine Ratio 12, Basophils # (Auto) 0.1, Basophils (%) (Auto) 1, Blood Urea Nitrogen 11, Calcium Level 8.7, Carbon Dioxide Level 20, Chloride Level 108, Creatinine 0.95, Eosinophils # (Auto) 0.1, Eosinophils (%) (Auto) 1, Estimat Glomerular Filtration Rate > 60, Glucose Level 109, Hematocrit 39, Hemoglobin 13.7, Lymphocytes # (Auto) 2.8, Lymphocytes (%) (Auto) 25, Mean Corpuscular Hemoglobin 28, Mean Corpuscular Hemoglobin Concent 35, Mean Corpuscular Volume 80, Mean Platelet Volume 11.3, Monocytes # (Auto) 1.2, Monocytes (%) (Auto) 11, Neutrophils # (Auto) 7.0, Neutrophils (%) (Auto) 63, Platelet Count 208, Potassium Level 3.4, Red Blood Count 4.92, Red Cell Distribution Width 13.2, Sodium Level 138, Total Bilirubin 0.7, Total Protein 6.4, White Blood Count 11.1 09/18/16 05:38: Anion Gap 10, BUN/Creatinine Ratio 7, Basophils # (Auto) 0.0, Basophils (%) ( Auto) 1, Blood Urea Nitrogen 6, Calcium Level 8.6, Carbon Dioxide Level 19, Chloride Level 110, Creatinine 0.89, Eosinophils # (Auto) 0.1, Eosinophils (%) ( Auto) 1, Estimat Glomerular Filtration Rate > 60, Glucose Level 105, Hematocrit 39, Hemoglobin 13.5, Lymphocytes # (Auto) 2.5, Lymphocytes (%) (Auto) 33, Mean Corpuscular Hemoglobin 28, Mean Corpuscular Hemoglobin Concent 35, Mean Corpuscular Volume 81, Mean Platelet Volume 11.1, Monocytes # (Auto) 1.0, Monocytes (%) (Auto) 13, Neutrophils # (Auto) 4.1, Neutrophils (%) (Auto) 54, Platelet Count 227, Potassium Level 3.8, Red Blood Count 4.82, Red Cell Distribution Width 13.3, Sodium Level 139, White Blood Count 7.7 09/18/16 06:25: Urine Amorphous Sediment MOD [place]INA PHOSPHATE, Urine Bacteria FEW, Urine Bilirubin NEGATIVE, Urine Casts NONE, Urine Clarity CLEAR, Urine Color YELLOW, Urine Crystals NONE, Urine Culture Indicated YES, Urine Glucose (UA) NEGATIVE, Urine Ketones NEGATIVE, Urine Leukocyte Esterase NEGATIVE, Urine Mucus NEGATIVE , Urine Nitrite NEGATIVE, Urine Protein NEGATIVE, Urine RBC NONE, Urine RBC ( Auto) NEGATIVE, Urine Specific [place] 1.015, Urine Squamous Epithelial Cells RARE, Urine Urobilinogen 4, Urine WBC 5-10, Urine pH 8 09/19/16 05:38: Anion Gap 10, BUN/Creatinine Ratio 11, Basophils # (Auto) 0.1, Basophils (%) ( Auto) 1, Blood Urea Nitrogen 10, Calcium Level 8.5, Carbon Dioxide Level 20, Chloride Level 110, Creatinine 0.91, Eosinophils # (Auto) 0.1, Eosinophils (%) ( Auto) 2, Estimat Glomerular Filtration Rate > 60, Glucose Level 90, Hematocrit 41, Hemoglobin 13.8, Lymphocytes # (Auto) 3.6, Lymphocytes (%) (Auto) 44, Mean Corpuscular Hemoglobin 28, Mean Corpuscular Hemoglobin Concent 34, Mean Corpuscular Volume 81, Mean Platelet Volume 11.6, Monocytes # (Auto) 0.8, Monocytes (%) (Auto) 10, Neutrophils # (Auto) 3.5, Neutrophils (%) (Auto) 43, Platelet Count 247, Potassium Level 3.8, Red Blood Count 4.98, Red Cell Distribution Width 13.3, Sodium Level 140, White Blood Count 8.1 Radiology Reviewed chest x-ray negative. CAT scan of abdomen and pelvis essentially negative Discussion & Recommendations to follow up in office Discharge Home Medications: Active Scripts Active Nitrofurantoin (Nitrofurantoin Macrocrystal) 100 Mg Capsule 100 Mg PO BID 10 Days Reported Guanfacine HCl ER (Guanfacine HCl) 3 Mg Tab.er.24h 3 Mg PO HS Topiramate 200 Mg Tablet 200 Mg PO HS Latuda (Lurasidone HCl) 60 Mg Tablet 60 Mg PO DAILY Clomipramine HCl 25 Mg Capsule 25 Mg PO HS Melatonin Tablet (Pyridoxine/Melatonin) 1 Tab Tablet 10 Mg PO HS Instructions to patient/family Please see electonic discharge instructions given to patient. Clinical Quality Measures DVT/VTE Risk/Contraindication: Risk Factor Score Per Nursin RFS Level Per Nursing on Admit: 4+=Very High DARREN HOOKER DO Sep 23, 2016 07:22
== END 2016-09-19 16:10 | disposition home or self-care (01) | DRG 872 ==
LOC: EDUNIT# 19:41 → ER 19:43 → 4TH 22:30
PROVIDERS: ADMIT Family Medicine; ATTEND Family Medicine
DX: A41.51 Sepsis due to Escherichia coli [E. coli] (principal); A41.81 Sepsis due to Enterococcus; N10 Acute pyelonephritis; F84.0 Autistic disorder; R62.50 Unspecified lack of expected normal physiological development in childhood; F39 Unspecified mood [affective] disorder; K76.0 Fatty (change of) liver, not elsewhere classified; Z23 Encounter for immunization
CPT/HCPCS: 36415; 74022; 74177; 80048; 80053; 81000; 82150; 83605; 83690; 85007; 85025; 85027; 87040; 87077; 87088; 87186; 96361; 96365; 96375

== ENCOUNTER 2019-04-29 14:25 | Emergency (ER) | payer MEDICARE, MEDICAID ==
[~2019-04-29] VITALS: Ht 177.8 cm; Wt 153.8 kg
[~2019-04-29 14:25] MED LIST changes: +GUAN3TAB3 PO; +LURA60TA2 PO; +NITR100C PO; +TOPI200T8 PO
[2019-04-29] MEDS ORDERED: KETOROLAC 30 MG/ML VIAL ONE (14:27)
--- NOTE | 2019-04-29 14:43 | ED Chest Pain ---
General Stated Complaint: CHEST PAIN Source: patient, family Exam Limitations: no limitations History of Present Illness Date Seen by Provider: Apr 29, 2019 Time Seen by Provider: 14:39 Initial Comments 24-year-old autistic gentleman reports to ER accompanied by his mother with reports of 2 weeks of upper central chest pain worse with laying flat and movem ent. He reports intermittent palpitations. No fevers chills cough or shortness of breath. He is currently pain-free. Timing/Duration: other (2 weeks) Severity/Quality: moderate Radiation: no radiation Activities at Onset: none Prior CP/Workup: no prior chest pain ASA po ERGONOMIST: No NTG SL ERGONOMIST: No Associated Symptoms: denies symptoms Allergies and Home Medications Allergies Coded Allergies: oxcarbazepine (Unverified Allergy, Severe, RASH, 09/17/14) Home Medications Clomipramine HCl 25 Mg Capsule, 25 MG PO HS, (Reported) Guanfacine HCl 3 Mg Tab.er.24h, 3 MG PO HS, (Reported) Lurasidone HCl 60 Mg Tablet, 60 MG PO DAILY, (Reported) Nitrofurantoin Macrocrystal 100 Mg Capsule, 100 MG PO BID Prescribed by: LD CARSON on 09/19/16 1110 Pyridoxine/Melatonin 1 Tab Tablet, 10 MG PO HS, (Reported) Topiramate 200 Mg Tablet, 200 MG PO HS, (Reported) Patient Home Medication List Home Medication List Reviewed: Yes Review of Systems Review of Systems Constitutional: see HPI EENTM: No Symptoms Reported Respiratory: No Symptoms Reported Cardiovascular: See HPI, Chest Pain, Palpitations Gastrointestinal: See HPI; Denies Abdominal Pain Genitourinary: No Symptoms Reported Musculoskeletal: no symptoms reported Skin: no symptoms reported Psychiatric/Neurological: No Symptoms Reported Endocrine: No Symptoms Reported Past [id number] Hx Patient Social History Recent Foreign Travel: No Contact w/Someone Who Travel: No Recent Hopitalizations: No Immunizations Up To Date PED Vaccines UTD: No Seasonal Allergies Seasonal Allergies: No Past Medical History Surgeries: Yes Ear Surgery Respiratory: No Cardiac: No Neurological: Yes Developmental Disorder Reproductive Disorders: No Sexually Transmitted Disease: No Genitourinary: No Gastrointestinal: No Musculoskeletal: No Endocrine: No HEENT: No Chronic Ear Infection Cancer: No Psychosocial: No Integumentary: No Blood Disorders: No Adverse Reaction/Blood Tranf: No Family Medical History AIDS 19 FATHER Asthma G8 BROTHER Myocardial infarction 19 FATHER Physical Exam Vital Signs Vital Signs - First Documented 04/29/19 14:41 Temp 98.6 Pulse 76 Resp 14 B/P (MAP) 144/88 (106) Pulse Ox 98 O2 Delivery Room Air Capillary Refill : Height, Weight, BMI Height: 5'10.00" Weight: 325lbs. 7.0oz. 147.916467bv; 46.7 BMI Method:Stated General Appearance: No Apparent Distress, WD/WN HEENT: PERRL/EOMI, TMs Normal Neck: Full Range of Motion, Normal Inspection Respiratory: Normal Breath Sounds, No Accessory Muscle Use, No Respiratory Distress, Other (when palpating the upper sternum and sternal borders there is tenderness. Patient states this is the pain that the patient has been experiencing over the past weeks he states. ) Gastrointestinal: Non Tender, Soft Neurologic/Psychiatric: Alert, Oriented x3 Skin: Normal Color, Warm/Dry Progress/Results/Core Measures Results/Orders Lab Results Laboratory Tests Test 04/29/19 14:34 04/29/19 15:04 Range/Units Sodium Level 140 135-145 MMOL/L Potassium Level 3.7 3.6-5.0 MMOL/L Chloride Level 108 H 98-107 MMOL/L Carbon Dioxide Level 20 L 21-32 MMOL/L Anion Gap 12 5-14 MMOL/L Blood Urea Nitrogen 12 7-18 MG/DL Creatinine 0.98 0.60-1.30 MG/DL Estimat Glomerular Filtration Rate > 60 BUN/Creatinine Ratio 12 Glucose Level 109 H 70-105 MG/DL Calcium Level 9.3 8.5-10.1 MG/DL Corrected Calcium 9.1 8.5-10.1 MG/DL Magnesium Level 2.1 1.6-2.4 MG/DL Total Bilirubin 0.3 0.1-1.0 MG/DL Aspartate Amino Transf (AST/SGOT) 21 5-34 U/L Alanine Aminotransferase (ALT/SGPT) 48 0-55 U/L Alkaline Phosphatase 71 40-136 U/L Troponin I < 0.028 <0.028 NG/ML C-Reactive Protein High Sensitivity 0.42 0.00-0.50 MG/DL Total Protein 7.1 6.4-8.2 GM/DL Albumin 4.3 3.2-4.5 GM/DL White Blood Count 12.0 H 4.3-11.0 10^3/uL Red Blood Count 5.07 4.35-5.85 10^6/uL Hemoglobin 14.2 13.3-17.7 G/DL Hematocrit 41 40-54 % Mean Corpuscular Volume 82 80-99 FL Mean Corpuscular Hemoglobin 28 25-34 PG Mean Corpuscular Hemoglobin Concent 34 32-36 G/DL Red Cell Distribution Width 13.3 10.0-14.5 % Platelet Count 276 130-400 10^3/uL Mean Platelet Volume 10.9 H 7.4-10.4 FL Neutrophils (%) (Auto) 57 42-75 % Lymphocytes (%) (Auto) 35 12-44 % Monocytes (%) (Auto) 7 0-12 % Eosinophils (%) (Auto) 1 0-10 % Basophils (%) (Auto) 1 0-10 % Neutrophils # (Auto) 6.8 1.8-7.8 X 10^3 Lymphocytes # (Auto) 4.2 H 1.0-4.0 X 10^3 Monocytes # (Auto) 0.9 0.0-1.0 X 10^3 Eosinophils # (Auto) 0.1 0.0-0.3 10^3/uL Basophils # (Auto) 0.1 0.0-0.1 10^3/uL Erythrocyte Sedimentation Rate 59 H 0-15 MM/HR My Orders Orders - TANVIR HOOD APRN Ketorolac Injection (Toradol Injection) (04/29/19 14:27) Cbc With Automated Diff (04/29/19 14:50) Erythrocyte Sedimentation Rate (04/29/19 14:50) Hs C Reactive Protein (04/29/19 14:50) Ed Iv/Invasive Line Start (04/29/19 14:50) Troponin I (04/29/19 14:50) BNP (04/29/19 14:50) Comprehensive Metabolic Panel (04/29/19 14:50) Magnesium (04/29/19 14:50) Chest 1 View, Ap/Pa Only (04/29/19 14:50) Ekg Tracing (04/29/19 14:50) Medications Given in ED Current Medications Medications Dose Ordered Sig/Patricia Route Start Time Stop Time Status Last Admin Dose Admin Ketorolac Tromethamine 30 mg STK-MED ONCE .ROUTE 04/29/19 14:27 04/29/19 14:35 DC 04/29/19 14:35 15 MG Vital Signs/I&O 04/29/19 04/29/19 14:41 14:41 Temp 98.6 Pulse 76 Resp 14 B/P (MAP) 144/88 (106) Pulse Ox 98 O2 Delivery Room Air Room Air Departure Impression Primary Impression: Palpitations Additional Impression: Chest wall pain Disposition: HOME, SELF-CARE Condition: Stable Departure-Patient Inst. Decision time for Depature: 15:45 Referrals: DARREN PALMER DO (PCP/Family) Primary Care Physician Patient Instructions: Chest Pain Add. Discharge Instructions: 1. Follow-up with Dr. Dr. Palmer. One of your long-term inflammatory markers called the ESR is somewhat elevated. TANVIR HOOD DIRECTOR OF GIFT PLANNING Apr 29, 2019 14:43
[2019-04-29 15:08] LABS: ALANINE AMINOTRANSFERASE 48 U/L (0-55); ALBUMIN 4.3 GM/DL (3.2-4.5); ALKALINE PHOSPHATASE 71 U/L (40-136); BILIRUBIN,TOTAL 0.3 MG/DL (0.1-1.0); BUN/CREATININE RATIO 12; CALCIUM 9.3 MG/DL (8.5-10.1); CARBON DIOXIDE 20 MMOL/L (21-32); CHLORIDE 108 MMOL/L (98-107); CREATININE SERUM 0.98 MG/DL (0.60-1.30); GFR ESTIMATED > 60; GLUCOSE 109 MG/DL (70-105); MAGNESIUM 2.1 MG/DL (1.6-2.4); POTASSIUM 3.7 MMOL/L (3.6-5.0); SODIUM 140 MMOL/L (135-145); TOTAL PROTEIN 7.1 GM/DL (6.4-8.2)
[2019-04-29 15:09] LABS: BASOPHILS # (AUTO) 0.1 10^3/uL (0.0-0.1); BASOPHILS % (AUTO) 1 % (0-10); EOSINOPHILS # (AUTO) 0.1 10^3/uL (0.0-0.3); EOSINOPHILS % (AUTO) 1 % (0-10); HEMATOCRIT 41 % (40-54); HEMOGLOBIN 14.2 G/DL (13.3-17.7); LYMPHOCYTES # (AUTO) 4.2 X 10^3 (1.0-4.0); LYMPHOCYTES % (AUTO) 35 % (12-44); MEAN CORPUSCULAR HEMOGLOBIN 28 PG (25-34); MEAN CORPUSCULAR HGB CONC 34 G/DL (32-36); MEAN CORPUSCULAR VOLUME 82 FL (80-99); MEAN PLATELET VOLUME 10.9 FL (7.4-10.4); MONOCYTES # (AUTO) 0.9 X 10^3 (0.0-1.0); MONOCYTES % (AUTO) 7 % (0-12); NEUTROPHILS # (AUTO) 6.8 X 10^3 (1.8-7.8); NEUTROPHILS % (AUTO) 57 % (42-75); PLATELET COUNT 276 10^3/uL (130-400); RED CELL DISTRIBUTION WIDTH 13.3 % (10.0-14.5)
[2019-04-29 15:40] LABS: ERYTHROCYTE SEDIMENTATION RATE 59 MM/HR (0-15)
--- NOTE | 2019-04-29 15:47 | Diagnostic Imaging Report ---
INDICATION: Chest pain. COMPARISON: 09/16/2016. FINDINGS: Two frontal radiographic views of the chest were obtained and demonstrate normal heart size and pulmonary vascularity. The lungs are well aerated and clear. No large pleural effusion or pneumothorax is seen. The visualized osseous structures show no acute abnormalities. IMPRESSION: 1. No acute cardiopulmonary process. Dictated by: Dictated on workstation # [id number]
[2019-04-29 15:54] VITALS: BP 142/90
== END 2019-04-29 15:55 | disposition home or self-care (01) ==
LOC: EDUNIT# 14:25 → ER 14:26
DX: R07.89 Other chest pain (principal); R00.2 Palpitations; F84.0 Autistic disorder; F89 Unspecified disorder of psychological development; Z88.8 Allergy status to other drugs, medicaments and biological substances; Z82.49 Family history of ischemic heart disease and other diseases of the circulatory system
CPT/HCPCS: 36415; 71045; 80053; 83735; 83880; 84484; 85025; 85652; 86141; 93005

== ENCOUNTER 2020-11-13 20:12 | Emergency (ER) | payer MEDICARE, MEDICAID ==
[~2020-11-13] VITALS: Ht 180.3 cm; Wt 160.0 kg
[~2020-11-13 20:12] MED LIST changes: +GUAN3TAB2 PO; -GUAN3TAB3 PO
[2020-11-13] MEDS ORDERED: ONDANSETRON 4 MG/2 ML (SDV) Z0FRAN IVP ONE (20:30)
[2020-11-13] MEDS ORDERED: NS IV 1000 ML 1,000 ML IV SCH (20:30)
[2020-11-13] MEDS ORDERED: KETOROLAC 30 MG/ML VIAL IVP STA (20:48)
[2020-11-13] MEDS ORDERED: diphenhydrAMINE 50 MG/ML INJ (BENADRYL) IVP ONE (21:00)
[2020-11-13 21:16] LABS: BASOPHILS # (AUTO) 0.1 10^3/uL (0.0-0.1); BASOPHILS % (AUTO) 1 % (0-10); EOSINOPHILS # (AUTO) 0.1 10^3/uL (0.0-0.3); EOSINOPHILS % (AUTO) 1 % (0-10); HEMATOCRIT 46 % (40-54); HEMOGLOBIN 15.4 g/dL (13.3-17.7); LYMPHOCYTES # (AUTO) 5.5 10^3/uL (1.0-4.0); LYMPHOCYTES % (AUTO) 36 % (12-44); MEAN CORPUSCULAR HEMOGLOBIN 27 pg (25-34); MEAN CORPUSCULAR HGB CONC 34 g/dL (32-36); MEAN CORPUSCULAR VOLUME 82 fL (80-99); MONOCYTES # (AUTO) 0.8 10^3/uL (0.0-1.0); MONOCYTES % (AUTO) 6 % (0-12); NEUTROPHILS # (AUTO) 8.4 10^3/uL (1.8-7.8); NEUTROPHILS % (AUTO) 56 % (42-75); PLATELET COUNT 338 10^3/uL (130-400); WHITE BLOOD COUNT 15.1 10^3/uL (4.3-11.0)
--- NOTE | 2020-11-13 21:26 | ED Headache ---
General Chief Complaint: Head/Cervical Problems Stated Complaint: HEADACHE / VOMITING Nursing Triage Note: PT AMBULATES TO ROOM #10 ACCOMPANIED BY MOTHER WITH C/O R EAR DISCOMFORT, HEADACHE, NAUSEA, ET VOMITING. MOTHER REPORTS PT TOOK 800MG IBUPROFEN AT 1630 ON THIS DAY. REPORTS COVID-19 EXPOSURE ON 11/08/20. Nursing Sepsis Screen: No Definite Risk History of Present Illness Date Seen by Provider: Nov 13, 2020 Time Seen by Provider: 20:35 Initial Comments 25-year-old male presents for headache and vomiting x1 tonight. He has a history of autism. He was sent home from work yesterday because of exposure to a coworker with Covid. He has received his first vaccine approximately 2 weeks ago. No history of Covid. He has had chronic migraines in the past which have been better since starting Topamax. He reports symptoms beginning yesterday with sinus congestion and mild headache. Tonight after dinner his headache became worse and he vomited once. He denies any change in taste or smell, no shortness of air or cough. Timing/Duration: 1-3 hours Severity/Quality: mild Location: frontal Prior Headaches/Recent Trauma: no recent headache/trauma Associated Symptoms: No confusion, No fatigue, No facial pain, No fever/chills, No flushing, No loss of consciousness; nausea/vomiting; No nasal congestion; nasal drainage; No numbness in legs/feet, No rash, No seizures, No sinus infection, No stiff neck, No vision changes, No weakness Allergies and Home Medications Allergies Coded Allergies: oxcarbazepine (Unverified Allergy, Severe, RASH, 09/17/14) Home Medications Clomipramine HCl 25 Mg Capsule, 25 MG PO HS, (Reported) Guanfacine HCl 3 Mg Tab.er.24h, 3 MG PO HS, (Reported) Lurasidone HCl 60 Mg Tablet, 60 MG PO DAILY, (Reported) Nitrofurantoin Macrocrystal 100 Mg Capsule, 100 MG PO BID Prescribed by: LD CARSON on 09/19/16 1110 Pyridoxine/Melatonin 1 Tab Tablet, 10 MG PO HS, (Reported) Topiramate 200 Mg Tablet, 200 MG PO HS, (Reported) Patient Home Medication List Home Medication List Reviewed: Yes Review of Systems Review of Systems Constitutional: no symptoms reported, see HPI Respiratory: no symptoms reported, see HPI Cardiovascular: no symptoms reported Gastrointestinal: see HPI, nausea, vomiting Psychiatric/Neurological: See HPI, Headache All Other Systems Reviewed Negative Unless Noted: Yes Past Hrbdpqa-Vdcnes-Bbwaey Hx Past Med/Social Hx: Reviewed Nursing Past Med/Soc Hx Patient Social History Alcohol Use: Rarely Uses Number of Drinks Today: 0 Smoking Status: Never a Smoker 2nd Hand Smoke Exposure: No Recent Infectious Disease Expo: No Recent Hopitalizations: No Immunizations Up To Date Tetanus Booster (TDap): Unknown PED Vaccines UTD: No Seasonal Allergies Seasonal Allergies: No Past Medical History Surgeries: Yes Ear Surgery Respiratory: No Cardiac: No Neurological: Yes Developmental Disorder Reproductive Disorders: No Sexually Transmitted Disease: No Genitourinary: No Gastrointestinal: No Musculoskeletal: No Endocrine: No HEENT: No Chronic Ear Infection Cancer: No Psychosocial: Yes (AUTISM) Integumentary: No Blood Disorders: No Adverse Reaction/Blood Tranf: No Family Medical History AIDS 19 FATHER Asthma G8 BROTHER Myocardial infarction 19 FATHER Physical Exam Vital Signs Vital Signs - First Documented 11/13/20 20:35 Temp 37.3 Pulse 111 Resp 18 B/P (MAP) 144/104 (117) Pulse Ox 96 O2 Delivery Room Air Capillary Refill : Less Than 3 Seconds Height, Weight, BMI Height: 5'10.00" Weight: 339lbs. 7.0oz. 153.676142gc; 49.00 BMI Method:Stated General Appearance: WD/WN, no apparent distress HEENT: PERRL/EOMI, normal ENT inspection, TMs normal (Cerumen impaction bilateral ears, removed), pharynx normal Neck: non-tender, full range of motion, supple, normal inspection Cardiovascular: normal peripheral pulses, regular rate, rhythm Respiratory: chest non-tender, lungs clear, normal breath sounds Gastrointestinal: normal bowel sounds, soft, distended; No guarding, No rebound; tenderness (Trace, epigastric); No mass Extremities: normal range of motion, non-tender, normal inspection, normal capillary refill Psychiatric: alert, oriented x 3 Skin: normal color, warm/dry Progress/Results/Core Measures Results/Orders Lab Results Laboratory Tests Test 11/13/20 20:55 11/13/20 21:00 Range/Units White Blood Count 15.1 H 4.3-11.0 10^3/uL Red Blood Count 5.63 H 4.30-5.52 10^6/uL Hemoglobin 15.4 13.3-17.7 g/dL Hematocrit 46 40-54 % Mean Corpuscular Volume 82 80-99 fL Mean Corpuscular Hemoglobin 27 25-34 pg Mean Corpuscular Hemoglobin Concent 34 32-36 g/dL Red Cell Distribution Width 12.6 10.0-14.5 % Platelet Count 338 130-400 10^3/uL Mean Platelet Volume 11.0 9.0-12.2 fL Immature Granulocyte % (Auto) 1 % Neutrophils (%) (Auto) 56 42-75 % Lymphocytes (%) (Auto) 36 12-44 % Monocytes (%) (Auto) 6 0-12 % Eosinophils (%) (Auto) 1 0-10 % Basophils (%) (Auto) 1 0-10 % Neutrophils # (Auto) 8.4 H 1.8-7.8 10^3/uL Lymphocytes # (Auto) 5.5 H 1.0-4.0 10^3/uL Monocytes # (Auto) 0.8 0.0-1.0 10^3/uL Eosinophils # (Auto) 0.1 0.0-0.3 10^3/uL Basophils # (Auto) 0.1 0.0-0.1 10^3/uL Immature Granulocyte # (Auto) 0.2 H 0.0-0.1 10^3/uL Neutrophils % (Manual) 55 % Lymphocytes % (Manual) 34 % Monocytes % (Manual) 10 % Eosinophils % (Manual) 1 % Blood Morphology Comment NORMAL Sodium Level 138 135-145 MMOL/L Potassium Level 3.8 3.6-5.0 MMOL/L Chloride Level 107 98-107 MMOL/L Carbon Dioxide Level 20 L 21-32 MMOL/L Anion Gap 11 5-14 MMOL/L Blood Urea Nitrogen 15 7-18 MG/DL Creatinine 1.29 0.60-1.30 MG/DL Estimat Glomerular Filtration Rate > 60 BUN/Creatinine Ratio 12 Glucose Level 122 H 70-105 MG/DL Calcium Level 8.9 8.5-10.1 MG/DL Corrected Calcium 8.6 8.5-10.1 MG/DL Total Bilirubin 0.3 0.1-1.0 MG/DL Aspartate Amino Transf (AST/SGOT) 19 5-34 U/L Alanine Aminotransferase (ALT/SGPT) 50 0-55 U/L Alkaline Phosphatase 89 40-136 U/L C-Reactive Protein High Sensitivity 0.77 H 0.00-0.50 MG/DL Total Protein 7.3 6.4-8.2 GM/DL Albumin 4.4 3.2-4.5 GM/DL Coronavirus 2019 (STANISLAV) Positive H Negative Micro Results Microbiology 11/13/20 Influenza Types A,B Antigen (CHHAYA) - Final, Complete My Orders Orders - JACK FERGUSON Ed Iv/Invasive Line Start (11/13/20 20:22) Ns Iv 1000 Ml (Sodium Chloride 0.9%) (11/13/20 20:30) Ondansetron Injection (Zofran Injectio (11/13/20 20:30) Covid 19 Inhouse Test (11/13/20 20:22) Influenza A And B Antigens (11/13/20 20:22) Ketorolac Injection (Toradol Injection) (11/13/20 20:48) Cbc With Automated Diff (11/13/20 20:59) Comprehensive Metabolic Panel (11/13/20 20:59) Hs C Reactive Protein (11/13/20 20:59) Diphenhydramine Injection (Benadryl Inje (11/13/20 21:00) Manual Differential (11/13/20 20:55) Rx-Ondansetron Po (Rx-Zofran Po) (11/13/20 21:53) Medications Given in ED Current Medications Medications Dose Ordered Sig/Patricia Route Start Time Stop Time Status Last Admin Dose Admin Diphenhydramine HCl 25 mg ONCE ONCE IVP 11/13/20 21:00 11/13/20 21:01 DC 11/13/20 21:03 25 MG Ondansetron HCl 8 mg ONCE ONCE IVP 11/13/20 20:30 11/13/20 20:31 DC 11/13/20 20:55 8 MG Vital Signs/I&O 11/13/20 20:35 Temp 37.3 Pulse 111 Resp 18 B/P (MAP) 144/104 (117) Pulse Ox 96 O2 Delivery Room Air Blood Pressure Mean: 117 Progress Progress Note : Time: 20:35 Progress Note Patient seen and evaluated, will give normal saline 1 L per IV, Zofran 4 mg IV, Benadryl 25 mg IV and Toradol 30 mg IV. Labs and COVID testing. 2114 patient reports some improvement in symptoms. B/P 140s/80s. 2139 COVID +, N/V improved. Discharge instructions and return precautions discussed with the patient and his mother. All questions answered. Departure Impression Primary Impression: Headache Qualified Codes: R51.9 - Headache, unspecified Additional Impressions: Nausea and vomiting Qualified Codes: R11.2 - Nausea with vomiting, unspecified COVID-19 Disposition: 01 HOME, SELF-CARE Condition: Stable Departure-Patient Inst. Decision time for Depature: 21:40 Referrals: [facility] (PCP) Primary Care Physician FATOUMATA DESAI (Family) Primary Care Physician Patient Instructions: Headache, Adult (DC), Nausea and Vomiting, Adult (DC), Coronavirus Disease 2019 (COVID-19) ED Add. Discharge Instructions: Increase fluid intake, 16 ounces every 2-3 hours while awake. Alternate between Tylenol 650 mg and ibuprofen 600 mg every 4 hours for fever or pain. Continue to take your home medications Take aspirin 81 mg daily for the next month. Take an immune vitamin that includes vitamin C, D, and zinc. Quarantine at home on isolation until notified by the health department. Contact the health department about your second Covid vaccine. Call your primary care provider if symptoms are not improving or worsen. Sleep on your stomach. Get up and walk around frequently. Sit outside for fresh air daily. Return to the emergency department for shortness of breath, fever greater than 101 degrees not relieved by Tylenol and ibuprofen, or new urgent healthcare needs. All discharge instructions reviewed with patient and/or family. Voiced understanding. JACK FERGUSON Nov 13, 2020 21:25
[2020-11-13 21:30] LABS: ALBUMIN 4.4 GM/DL (3.2-4.5); CHLORIDE 107 MMOL/L (98-107); POTASSIUM 3.8 MMOL/L (3.6-5.0); SODIUM 138 MMOL/L (135-145)
[2020-11-13 21:31] LABS: CALCIUM 8.9 MG/DL (8.5-10.1)
[2020-11-13 21:32] LABS: GLUCOSE 122 MG/DL (70-105)
[2020-11-13 21:33] LABS: TOTAL PROTEIN 7.3 GM/DL (6.4-8.2)
[2020-11-13 21:34] LABS: BILIRUBIN,TOTAL 0.3 MG/DL (0.1-1.0); CARBON DIOXIDE 20 MMOL/L (21-32)
[2020-11-13 21:36] LABS: ALKALINE PHOSPHATASE 89 U/L (40-136); CREATININE SERUM 1.29 MG/DL (0.60-1.30); EOSINOPHILS % (MANUAL) 1 %; GFR ESTIMATED > 60; LYMPHOCYTES % (MANUAL) 34 %; MONOCYTES % (MANUAL) 10 %; NEUTROPHILS % (MANUAL) 55 %
[2020-11-13 21:37] LABS: BUN/CREATININE RATIO 12; RBC MORPH NORMAL
[2020-11-13 21:39] LABS: ALANINE AMINOTRANSFERASE 50 U/L (0-55)
[2020-11-13] MEDS ORDERED: RX-ONDANSETRON 4 MG ODT (ZOFRAN) PPK #4 PO STA (21:53)
[2020-11-13] MEDS ORDERED: RX-ONDANSETRON 4 MG ODT (ZOFRAN) PPK #4 ONE (21:54)
[2020-11-13 22:05] VITALS: BP 157/85
== END 2020-11-13 22:05 | disposition home or self-care (01) ==
LOC: EDUNIT# 20:12 → ER 20:15
DX: R11.2 Nausea with vomiting, unspecified (principal); U07.1 COVID-19; I10 Essential (primary) hypertension; G43.909 Migraine, unspecified, not intractable, without status migrainosus; Z88.8 Allergy status to other drugs, medicaments and biological substances
CPT/HCPCS: 80053; 85007; 85027; 86141; 87804; U0002; 36415; 87635

== ENCOUNTER 2020-12-25 17:02 | Emergency (ER) | payer MEDICARE, MEDICAID ==
[~2020-12-25] VITALS: Ht 177 cm; Wt 158.0 kg
[2020-12-25 17:23] LABS: BASOPHILS # (AUTO) 0.1 10^3/uL (0.0-0.1); BASOPHILS % (AUTO) 1 % (0-10); EOSINOPHILS # (AUTO) 0.1 10^3/uL (0.0-0.3); EOSINOPHILS % (AUTO) 1 % (0-10); HEMATOCRIT 44 % (40-54); HEMOGLOBIN 14.5 g/dL (13.3-17.7); LYMPHOCYTES # (AUTO) 5.1 10^3/uL (1.0-4.0); LYMPHOCYTES % (AUTO) 36 % (12-44); MEAN CORPUSCULAR HEMOGLOBIN 27 pg (25-34); MEAN CORPUSCULAR HGB CONC 33 g/dL (32-36); MEAN CORPUSCULAR VOLUME 84 fL (80-99); MONOCYTES # (AUTO) 0.7 10^3/uL (0.0-1.0); MONOCYTES % (AUTO) 5 % (0-12); NEUTROPHILS # (AUTO) 7.8 10^3/uL (1.8-7.8); NEUTROPHILS % (AUTO) 56 % (42-75); PLATELET COUNT 315 10^3/uL (130-400); WHITE BLOOD COUNT 14.1 10^3/uL (4.3-11.0)
--- NOTE | 2020-12-25 17:25 | ED Abdominal Pain ---
General Chief Complaint: Abdominal/GI Problems Stated Complaint: ABD PAIN Nursing Triage Note: ARRIVED VIA AMB TO ROOM 08 WITH COMPLAINTS OF BILAT LOWER ABD PAIN THAT IS MORE SO ON THE RIGHT. STATES IT HURTS TO PEE AND HAS ONLY PEED X1 TODAY. Sepsis Screen: No Definite Risk Source of Information: Patient, Family Exam Limitations: No Limitations History of Present Illness Date Seen by Provider: Dec 25, 2020 Time Seen by Provider: 17:22 Initial Comments To ER by mother as he has autism with reports right-sided abdominal pain onset today. He had some pain with urination history of pyelonephritis. Timing/Duration: 1-2 Days Severity/Quality: Moderate Location: RUQ, RLQ Radiation: No Radiation Activities at Onset: None Associated Symptoms: Denies Symptoms Allergies and Home Medications Allergies Coded Allergies: oxcarbazepine (Unverified Allergy, Severe, RASH, 09/17/14) Home Medications Clomipramine HCl 25 Mg Capsule, 25 MG PO HS, (Reported) Guanfacine HCl 3 Mg Tab.er.24h, 3 MG PO HS, (Reported) Lurasidone HCl 60 Mg Tablet, 60 MG PO DAILY, (Reported) Nitrofurantoin Macrocrystal 100 Mg Capsule, 100 MG PO BID Prescribed by: LD CARSON on 09/19/16 1110 Ondansetron 8 Mg Tab.rapdis, 8 MG PO Q8H PRN for NAUSEA/VOMITING Prescribed by: TANVIR HOOD on 12/25/20 1809 Pyridoxine/Melatonin 1 Tab Tablet, 10 MG PO HS, (Reported) Topiramate 200 Mg Tablet, 200 MG PO HS, (Reported) Patient Home Medication List Home Medication List Reviewed: Yes Review of Systems Review of Systems Constitutional: see HPI EENTM: No Symptoms Reported Respiratory: No Symptoms Reported Cardiovascular: No Symptoms Reported Gastrointestinal: See HPI, Abdominal Pain Genitourinary: No Symptoms Reported Musculoskeletal: no symptoms reported Skin: no symptoms reported Psychiatric/Neurological: No Symptoms Reported Endocrine: No Symptoms Reported Hematologic/Lymphatic: No Symptoms Reported Past Iwuoopz-Cyxmee-Pozich Hx Patient Social History Alcohol Use: Rarely Uses Smoking Status: Never a Smoker 2nd Hand Smoke Exposure: No Recent Infectious Disease Expo: No Recent Hopitalizations: No Immunizations Up To Date Tetanus Booster (TDap): Unknown PED Vaccines UTD: No Seasonal Allergies Seasonal Allergies: No Past Medical History Surgeries: Yes Ear Surgery Respiratory: No Cardiac: No Neurological: Yes (AUTISTIC) Developmental Disorder Reproductive Disorders: No Sexually Transmitted Disease: No Genitourinary: No Gastrointestinal: No Musculoskeletal: No Endocrine: No HEENT: No Chronic Ear Infection Cancer: No Psychosocial: Yes (AUTISM) Integumentary: No Blood Disorders: No Adverse Reaction/Blood Tranf: No Family Medical History AIDS 19 FATHER Asthma G8 BROTHER Myocardial infarction 19 FATHER Physical Exam Vital Signs Vital Signs - First Documented 12/25/20 17:05 Temp 37.0 Pulse 85 Resp 16 B/P (MAP) 141/94 (110) Pulse Ox 98 O2 Delivery Room Air Capillary Refill : Less Than 3 Seconds Height/Weight/BMI Height: 5'10.00" Weight: 339lbs. 7.0oz. 153.815068sw; 50.00 BMI Method:Stated General Appearance: WD/WN, no apparent distress HEENT: PERRL/EOMI, normal ENT inspection Respiratory: no respiratory distress, no accessory muscle use Gastrointestinal: normal bowel sounds, soft, tenderness Extremities: normal range of motion, non-tender Neurologic/Psychiatric: alert, normal mood/affect, oriented x 3 Skin: normal color, warm/dry Progress/Results/Core Measures Results/Orders Lab Results Laboratory Tests Test 12/25/20 17:15 12/25/20 17:26 Range/Units White Blood Count 14.1 H 4.3-11.0 10^3/uL Red Blood Count 5.30 4.30-5.52 10^6/uL Hemoglobin 14.5 13.3-17.7 g/dL Hematocrit 44 40-54 % Mean Corpuscular Volume 84 80-99 fL Mean Corpuscular Hemoglobin 27 25-34 pg Mean Corpuscular Hemoglobin Concent 33 32-36 g/dL Red Cell Distribution Width 12.9 10.0-14.5 % Platelet Count 315 130-400 10^3/uL Mean Platelet Volume 11.0 9.0-12.2 fL Immature Granulocyte % (Auto) 1 % Neutrophils (%) (Auto) 56 42-75 % Lymphocytes (%) (Auto) 36 12-44 % Monocytes (%) (Auto) 5 0-12 % Eosinophils (%) (Auto) 1 0-10 % Basophils (%) (Auto) 1 0-10 % Neutrophils # (Auto) 7.8 1.8-7.8 10^3/uL Lymphocytes # (Auto) 5.1 H 1.0-4.0 10^3/uL Monocytes # (Auto) 0.7 0.0-1.0 10^3/uL Eosinophils # (Auto) 0.1 0.0-0.3 10^3/uL Basophils # (Auto) 0.1 0.0-0.1 10^3/uL Immature Granulocyte # (Auto) 0.1 0.0-0.1 10^3/uL Neutrophils % (Manual) 55 % Lymphocytes % (Manual) 40 % Monocytes % (Manual) 3 % Eosinophils % (Manual) 0 % Basophils % (Manual) 2 % Band Neutrophils 0 % Blood Morphology Comment NORMAL Sodium Level 139 135-145 MMOL/L Potassium Level 3.7 3.6-5.0 MMOL/L Chloride Level 106 98-107 MMOL/L Carbon Dioxide Level 24 21-32 MMOL/L Anion Gap 9 5-14 MMOL/L Blood Urea Nitrogen 14 7-18 MG/DL Creatinine 1.15 0.60-1.30 MG/DL Estimat Glomerular Filtration Rate > 60 BUN/Creatinine Ratio 12 Glucose Level 89 70-105 MG/DL Calcium Level 9.1 8.5-10.1 MG/DL Corrected Calcium 8.9 8.5-10.1 MG/DL Total Bilirubin 0.3 0.1-1.0 MG/DL Aspartate Amino Transf (AST/SGOT) 20 5-34 U/L Alanine Aminotransferase (ALT/SGPT) 40 0-55 U/L Alkaline Phosphatase 83 40-136 U/L C-Reactive Protein High Sensitivity 0.43 0.00-0.50 MG/DL Total Protein 6.9 6.4-8.2 GM/DL Albumin 4.2 3.2-4.5 GM/DL Lipase 18 8-78 U/L Urine Color YELLOW Urine Clarity CLEAR Urine pH 5.5 5-9 Urine Specific [place] 1.025 H 1.016-1.022 Urine Protein NEGATIVE NEGATIVE Urine Glucose (UA) NEGATIVE NEGATIVE Urine Ketones NEGATIVE NEGATIVE Urine Nitrite NEGATIVE NEGATIVE Urine Bilirubin NEGATIVE NEGATIVE Urine Urobilinogen 0.2 < = 1.0 MG/DL Urine Leukocyte Esterase NEGATIVE NEGATIVE Urine RBC (Auto) NEGATIVE NEGATIVE Urine RBC NONE /HPF Urine WBC NONE /HPF Urine Squamous Epithelial Cells RARE /HPF Urine Crystals NONE /LPF Urine Bacteria NEGATIVE /HPF Urine Casts NONE /LPF Urine Mucus NEGATIVE /LPF Urine Culture Indicated NO My Orders Orders - TANVIR HOOD WANT AD RECEIVER Cbc With Automated Diff (12/25/20 17:16) Comprehensive Metabolic Panel (12/25/20 17:16) Hs C Reactive Protein (12/25/20 17:16) Ua Culture If Indicated (12/25/20 17:16) Ed Iv/Invasive Line Start (12/25/20 17:16) Ns Iv 1000 Ml (Sodium Chloride 0.9%) (12/25/20 17:30) Ketorolac Injection (Toradol Injection) (12/25/20 17:30) Ondansetron Injection (Zofran Injectio (12/25/20 17:30) Lipase (12/25/20 17:16) Ct Abd/Pelv W (Appendicitis) (12/25/20 17:19) Manual Differential (12/25/20 17:15) Iohexol Injection (Omnipaque 350 Mg/Ml 1 (12/25/20 17:30) Received Contrast (Hold Metformin- Contr (12/25/20 17:30) Sodium Chloride Flush (Catheter Flush Sy (12/25/20 17:30) Ns (Ivpb) (Sodium Chloride 0.9% Ivpb Bag (12/25/20 17:30) Promethazine Injection (Phenergan Injec (12/25/20 18:30) Medications Given in ED Current Medications Medications Dose Ordered Sig/Patricia Route Start Time Stop Time Status Last Admin Dose Admin Iohexol 100 ml ONCE ONCE IV 12/25/20 17:30 12/25/20 17:31 DC 12/25/20 17:38 100 ML Ketorolac Tromethamine 30 mg ONCE ONCE IVP 12/25/20 17:30 12/25/20 17:31 DC 12/25/20 17:26 30 MG Ondansetron HCl 8 mg ONCE ONCE IVP 12/25/20 17:30 12/25/20 17:31 DC 12/25/20 17:26 8 MG Promethazine HCl 12.5 mg ONCE ONCE IVP 12/25/20 18:30 12/25/20 18:31 DC 12/25/20 18:35 12.5 MG Sodium Chloride 10 ml NEEDED PRN IV 12/25/20 17:30 12/25/20 17:39 10 ML Sodium Chloride 100 ml ONCE ONCE IV 12/25/20 17:30 12/25/20 17:31 DC 12/25/20 17:39 80 ML Vital Signs/I&O 12/25/20 17:05 Temp 37.0 Pulse 85 Resp 16 B/P (MAP) 141/94 (110) Pulse Ox 98 O2 Delivery Room Air Blood Pressure Mean: 110 Departure Communication (Admissions) 183-bladder is very distended on CT. He does have the urge to urinate. I provided him with a urinal and he was able to produce 1100 mL of clear yellow urine. 1917-feeling much better after 12.5 mg Phenergan. If he has persistent pain, ultrasound of the gallbladder will be warranted. Impression Primary Impression: Right sided abdominal pain Disposition: HOME, SELF-CARE Condition: Stable Departure-Patient Inst. Decision time for Depature: 18:08 Referrals: [facility] [place] (PCP) Primary Care Physician FATOUMATA DESAI (Family) Primary Care Physician Patient Instructions: Abdominal Pain, Adult ED Add. Discharge Instructions: 1. Call your family doctor tomorrow for reevaluation. If the pain persists they may wish to order an ultrasound of the gallbladder. Return to ER for fevers, uncontrollable vomiting or any other concerns. All discharge instructions reviewed with patient and/or family. Voiced understanding. Scripts Promethazine HCl (Promethazine Tablet) 25 Mg Tablet 25 MG PO Q8H PRN for NAUSEA/VOMITING, #10 TAB Prov: TANVIR HOOD APRN 12/25/20 Ondansetron (Ondansetron Odt) 8 Mg Tab.rapdis 8 MG PO Q8H PRN for NAUSEA/VOMITING, #10 TAB Prov: TANVIR HOOD APRN 12/25/20 Copy Copies To 1: SARAHY WARD MD, PETER J APRN Dec 25, 2020 17:24
[2020-12-25] MEDS ORDERED: KETOROLAC 30 MG/ML VIAL IVP ONE (17:30)
[2020-12-25] MEDS ORDERED: NS IV 1000 ML 1,000 ML IV SCH (17:30)
[2020-12-25] MEDS ORDERED: IOHEXOL 350 MG/ML 100 ML (OMNIPAQUE 350) VIAL IV ONE (17:30)
[2020-12-25] MEDS ORDERED: ONDANSETRON 4 MG/2 ML (SDV) Z0FRAN IVP ONE (17:30)
[2020-12-25] MEDS ORDERED: NS 100 ML (IVPB) BAG IV ONE (17:30)
[2020-12-25] MEDS ORDERED: HOLD METFORMIN - RECEIVED CONTRAST 20 ML VIAL IV SCH (17:30)
[2020-12-25] MEDS ORDERED: CATHETER FLUSH 10 ML SYR IV PRN (17:30)
[2020-12-25 17:43] LABS: BILIRUBIN,URINE NEGATIVE (NEGATIVE); CLARITY,URINE CLEAR; COLOR,URINE YELLOW; GLUCOSE, URINE (UA) NEGATIVE (NEGATIVE); KETONES,URINE NEGATIVE (NEGATIVE); LEUKOCYTE ESTERASE ,URINE NEGATIVE (NEGATIVE); NITRITE,URINE NEGATIVE (NEGATIVE); PH,URINE 5.5 (5-9); PROTEIN,URINE NEGATIVE (NEGATIVE)
[2020-12-25 17:45] LABS: ALANINE AMINOTRANSFERASE 40 U/L (0-55); ALBUMIN 4.2 GM/DL (3.2-4.5); ALKALINE PHOSPHATASE 83 U/L (40-136); BILIRUBIN,TOTAL 0.3 MG/DL (0.1-1.0); BUN/CREATININE RATIO 12; CALCIUM 9.1 MG/DL (8.5-10.1); CARBON DIOXIDE 24 MMOL/L (21-32); CHLORIDE 106 MMOL/L (98-107); CREATININE SERUM 1.15 MG/DL (0.60-1.30); GFR ESTIMATED > 60; GLUCOSE 89 MG/DL (70-105); LIPASE 18 U/L (8-78); POTASSIUM 3.7 MMOL/L (3.6-5.0); SODIUM 139 MMOL/L (135-145); TOTAL PROTEIN 6.9 GM/DL (6.4-8.2)
--- NOTE | 2020-12-25 17:53 | Diagnostic Imaging Report ---
PROCEDURE: CT abdomen and pelvis with contrast, rule out appendicitis. TECHNIQUE: Multiple contiguous axial images were obtained through the abdomen and pelvis after the administration of intravenous contrast. All CT scans use one or more of the following dose optimizing techniques: automated exposure control, MA and/or KvP adjustment based on patient size and exam type or iterative reconstruction. INDICATION: Right-sided pain. FINDINGS: There is no appendicitis. There are no opaque urinary tract calculi. There is no hydroureteronephrosis. The liver, gallbladder, bile ducts, spleen, adrenals, and pancreas are unremarkable. The aorta is patent and nonaneurysmal. There is no small or large bowel obstruction. No perienteric or pericolonic edema. The uterus is absent. There is no adnexal lesion. The urinary bladder is normal. No ascites, abscess, hematoma, or other acute fluid collections. IMPRESSION: No obstructive features, inflammatory process, fluid collections, ascites, or other acute abnormalities. Dictated by: Dictated on workstation # [id number]
[2020-12-25 17:54] LABS: BAND NEUTROPHILS 0 %; BASOPHILS % (MANUAL) 2 %; EOSINOPHILS % (MANUAL) 0 %; LYMPHOCYTES % (MANUAL) 40 %; MONOCYTES % (MANUAL) 3 %; NEUTROPHILS % (MANUAL) 55 %; RBC MORPH NORMAL
[2020-12-25 17:54] LABS: BACTERIA,URINE NEGATIVE /HPF; SQUAMOUS EPITHELIAL CELL,UR RARE /HPF
[2020-12-25] MEDS ORDERED: ONDA8TAB13 PO (18:09)
[2020-12-25] MEDS ORDERED: PROMETHAZINE INJ 25 MG/ML (PHENERGAN) AMP IVP ONE (18:30)
[2020-12-25] MEDS ORDERED: PROM25TA14 PO (19:21)
[2020-12-25 19:25] VITALS: BP 139/94
== END 2020-12-25 19:25 | disposition home or self-care (01) ==
LOC: EDUNIT# 17:02 → ER 17:04
DX: R10.11 Right upper quadrant pain (principal); Z88.5 Allergy status to narcotic agent
CPT/HCPCS: 36415; 74177; 80053; 81000; 83690; 85007; 85027; 86141; 96361; 96374; 96375

== ENCOUNTER 2020-12-26 19:05 | Emergency (ER) | payer MEDICARE, MEDICAID ==
[~2020-12-26] VITALS: Ht 177.8 cm; Wt 157.7 kg
[~2020-12-26 19:05] MED LIST changes: +ONDA8TAB13 PO; +PROM25TA14 PO
[2020-12-26 19:15] VITALS: BP 141/80
[2020-12-26] MEDS ORDERED: ONDANSETRON 4 MG (ZOFRAN) ORAL DISSOLVE TAB SL STA (19:36)
[2020-12-26] MEDS ORDERED: RX-ONDANSETRON 4 MG ODT (ZOFRAN) PPK #4 PO STA (19:37)
--- NOTE | 2020-12-26 19:47 | ED Abdominal Pain ---
General Chief Complaint: Abdominal/GI Problems Stated Complaint: ABD PAIN History of Present Illness Date Seen by Provider: Dec 26, 2020 Time Seen by Provider: 17:20 Initial Comments 25 year old male presents for continued abdominal pain. He was evaluated by Dr. Howell at [facility] today and scheduled Ultrasound. His mother was at work and he missed the call for what time the [place] is and where. He had pain throughout the day, but did not take anything. He had nausea after eating dinner, never vomited, took Phenergan and persists with nausea. VS are stable and all labs/CT from yesterday reviewed. No significant abnormalities noted. Patient has a history of autism. Timing/Duration: 2-3 Days Severity/Quality: Mild Location: LUQ Radiation: No Radiation Associated Symptoms: No Back Pain, No Chest Pain, No Diaphoresis, No Fever/Chills, No Fatigue, No Headache, No Heartburn; Nausea/Vomiting; No Shortness of Air, No Swelling/Mass in Abdomen, No Weakness Allergies and Home Medications Allergies Coded Allergies: oxcarbazepine (Unverified Allergy, Severe, RASH, 09/17/14) Home Medications Clomipramine HCl 25 Mg Capsule, 25 MG PO HS, (Reported) Guanfacine HCl 3 Mg Tab.er.24h, 3 MG PO HS, (Reported) Lurasidone HCl 60 Mg Tablet, 60 MG PO DAILY, (Reported) Nitrofurantoin Macrocrystal 100 Mg Capsule, 100 MG PO BID Prescribed by: LD CARSON on 09/19/16 1110 Ondansetron 8 Mg Tab.rapdis, 8 MG PO Q8H PRN for NAUSEA/VOMITING Prescribed by: TANVIR HOOD on 12/25/20 180 Promethazine HCl 25 Mg Tablet, 25 MG PO Q8H PRN for NAUSEA/VOMITING Prescribed by: TANVIR HOOD on 12/25/20 192 Pyridoxine/Melatonin 1 Tab Tablet, 10 MG PO HS, (Reported) Topiramate 200 Mg Tablet, 200 MG PO HS, (Reported) Patient Home Medication List Home Medication List Reviewed: Yes Review of Systems Review of Systems Constitutional: no symptoms reported, see HPI Gastrointestinal: See HPI, Abdominal Pain (LUQ); Denies Constipated, Denies Diarrhea; Nausea, Poor Appetite; Denies Vomiting All Other Systems Reviewed Negative Unless Noted: Yes Past Yjibrog-Ckkqbi-Rpxjth Hx Past Med/Social Hx: Reviewed Nursing Past Med/Soc Hx Patient Social History 2nd Hand Smoke Exposure: No Recent Hopitalizations: No Immunizations Up To Date Tetanus Booster (TDap): Unknown PED Vaccines UTD: No Seasonal Allergies Seasonal Allergies: No Past Medical History Surgeries: Yes Ear Surgery Respiratory: No Cardiac: No Neurological: Yes (AUTISTIC) Developmental Disorder Reproductive Disorders: No Sexually Transmitted Disease: No Genitourinary: No Gastrointestinal: No Musculoskeletal: No Endocrine: No HEENT: No Chronic Ear Infection Cancer: No Psychosocial: Yes (AUTISM) Integumentary: No Blood Disorders: No Adverse Reaction/Blood Tranf: No Family Medical History AIDS 19 FATHER Asthma G8 BROTHER Myocardial infarction 19 FATHER Physical Exam Vital Signs Capillary Refill : Height/Weight/BMI Height: 5'10.00" Weight: 339lbs. 7.0oz. 153.536278mm; 50.00 BMI Method:Stated General Appearance: WD/WN, no apparent distress, obese Respiratory: chest non-tender, lungs clear, normal breath sounds Cardiovascular: normal peripheral pulses, regular rate, rhythm Gastrointestinal: normal bowel sounds, soft; No distended, No guarding, No rebound; tenderness (LUQ, mild. Positive Lisa sign.) Neurologic/Psychiatric: no motor/sensory deficits, alert, normal mood/affect, oriented x 3 Skin: normal color, warm/dry; No jaundice Progress/Results/Core Measures Results/Orders My Orders Orders - JACK FERGUSON Ua Culture If Indicated (12/26/20 19:08) Ondansetron Oral Dissolve Tab (Zofran (12/26/20 19:36) Tramadol Tablet (Ultram Tablet) (12/26/20 19:36) Rx-Ondansetron Po (Rx-Zofran Po) (12/26/20 19:37) Departure Impression Primary Impression: Nausea alone Additional Impression: Abdominal pain Qualified Codes: R10.12 - Left upper quadrant pain Disposition: 01 HOME, SELF-CARE Condition: Improved Departure-Patient Inst. Decision time for Depature: 19:35 Referrals: [facility] (PCP/Family) Primary Care Physician Patient Instructions: Gallbladder Diet Add. Discharge Instructions: Call [facility] tomorrow to verify when your ultrasound is scheduled. Avoid any high fat, fried or spicy foods until your follow-up after the ultrasound. Increase water intake, 16 ounces every 3-4 hours as needed for pain. Use the Zofran every 8 hours for Nausea. Use Tylenol 650 mg every 6-8 hours for pain. Return to the emergency department for new, urgent healthcare problems. All discharge instructions reviewed with patient and/or family. Voiced understanding. Copy Copies To 1: JAYLON WOLFE AMY ARNP Dec 26, 2020 19:47
== END 2020-12-26 20:01 | disposition home or self-care (01) ==
LOC: EDUNIT# 19:05 → ER 19:07
DX: R11.0 Nausea (principal); R10.12 Left upper quadrant pain; E66.9 Obesity, unspecified; Z68.43 Body mass index [BMI] 50.0-59.9, adult; Z88.8 Allergy status to other drugs, medicaments and biological substances
CPT/HCPCS: 99283

== ENCOUNTER 2020-12-30 12:25 | Emergency (ER) | payer MEDICARE, MEDICAID ==
[~2020-12-30] VITALS: Ht 177 cm; Wt 157.7 kg
[2020-12-30] MEDS ORDERED: KETOROLAC 30 MG/ML VIAL IVP ONE (13:45)
[2020-12-30] MEDS ORDERED: NS IV 1000 ML 1,000 ML IV SCH (13:45)
[2020-12-30] MEDS ORDERED: fentaNYL INJ 100 MCG/2 ML AMP IVP ONE (13:45)
--- NOTE | 2020-12-30 13:46 | ED Chest Pain ---
General Chief Complaint: Chest Pain Stated Complaint: GALBADDER ISSUES/NEW CP AND HEADACHE Source: patient, family Exam Limitations: no limitations History of Present Illness Date Seen by Provider: December 30, 2020 Time Seen by Provider: 13:00 Initial Comments To ER by private vehicle accompanied by his mother. He is autistic. Reports ch est pain that he awakened with this morning that is severe in nature rated at 9.5 out of 10 in addition to headache. Timing/Duration: 4-6 hours Severity/Quality: moderate Radiation: no radiation Activities at Onset: none ASA po NETWORK SERVICES PROJECT MANAGER: No NTG SL NETWORK SERVICES PROJECT MANAGER: No Associated Symptoms: nausea/vomiting Allergies and Home Medications Allergies Coded Allergies: oxcarbazepine (Unverified Allergy, Severe, RASH, 09/17/14) Home Medications Clomipramine HCl 25 Mg Capsule, 25 MG PO HS, (Reported) Guanfacine HCl 3 Mg Tab.er.24h, 3 MG PO HS, (Reported) Lurasidone HCl 60 Mg Tablet, 60 MG PO DAILY, (Reported) Nitrofurantoin Macrocrystal 100 Mg Capsule, 100 MG PO BID Prescribed by: LD CARSON on 09/19/16 1110 Ondansetron 8 Mg Tab.rapdis, 8 MG PO Q8H PRN for NAUSEA/VOMITING Prescribed by: TANVIR HOOD on 12/25/20 1809 Promethazine HCl 25 Mg Tablet, 25 MG PO Q8H PRN for NAUSEA/VOMITING Prescribed by: TANVIR HOOD on 12/25/20 1921 Pyridoxine/Melatonin 1 Tab Tablet, 10 MG PO HS, (Reported) Topiramate 200 Mg Tablet, 200 MG PO HS, (Reported) Patient Home Medication List Home Medication List Reviewed: Yes Review of Systems Review of Systems Constitutional: see HPI EENTM: No Symptoms Reported Respiratory: No Symptoms Reported Cardiovascular: See HPI, Chest Pain Gastrointestinal: See HPI Genitourinary: No Symptoms Reported Musculoskeletal: no symptoms reported Skin: no symptoms reported Psychiatric/Neurological: No Symptoms Reported Endocrine: No Symptoms Reported Hematologic/Lymphatic: No Symptoms Reported Past Fkkpfkj-Pmilkh-Sygbsl Hx Patient Social History Alcohol Use: Rarely Uses Smoking Status: Never a Smoker 2nd Hand Smoke Exposure: No Recent Hopitalizations: No Immunizations Up To Date Tetanus Booster (TDap): Unknown PED Vaccines UTD: No Seasonal Allergies Seasonal Allergies: No Past Medical History Surgeries: Yes Ear Surgery Respiratory: No Cardiac: No Neurological: Yes (AUTISTIC) Developmental Disorder Reproductive Disorders: No Sexually Transmitted Disease: No Genitourinary: No Gastrointestinal: No Musculoskeletal: No Endocrine: No HEENT: No Chronic Ear Infection Cancer: No Psychosocial: Yes (AUTISM) Integumentary: No Blood Disorders: No Adverse Reaction/Blood Tranf: No Family Medical History AIDS 19 FATHER Asthma G8 BROTHER Myocardial infarction 19 FATHER Physical Exam Vital Signs Vital Signs - First Documented 12/30/20 12:56 Temp 36.6 Pulse 89 Resp 20 B/P (MAP) 154/115 (128) Pulse Ox 97 O2 Delivery Room Air Capillary Refill : Less Than 3 Seconds Height, Weight, BMI Height: 5'10.00" Weight: 339lbs. 7.0oz. 153.684117qv; 49.00 BMI Method:Stated General Appearance: No Apparent Distress, WD/WN, Obese Neck: Full Range of Motion, Normal Inspection Respiratory: No Accessory Muscle Use, No Respiratory Distress Cardiovascular: Regular Rate, Rhythm, Normal Peripheral Pulses Gastrointestinal: Normal Bowel Sounds, Non Tender, Soft Extremity: Normal Capillary Refill, Normal Inspection Neurologic/Psychiatric: Alert, Oriented x3 Skin: Normal Color, Warm/Dry Progress/Results/Core Measures Results/Orders Lab Results Laboratory Tests Test 12/30/20 12:44 Range/Units White Blood Count 11.1 H 4.3-11.0 10^3/uL Red Blood Count 5.63 H 4.30-5.52 10^6/uL Hemoglobin 15.5 13.3-17.7 g/dL Hematocrit 48 40-54 % Mean Corpuscular Volume 84 80-99 fL Mean Corpuscular Hemoglobin 28 25-34 pg Mean Corpuscular Hemoglobin Concent 33 32-36 g/dL Red Cell Distribution Width 12.6 10.0-14.5 % Platelet Count 329 130-400 10^3/uL Mean Platelet Volume 11.7 9.0-12.2 fL Immature Granulocyte % (Auto) 1 % Neutrophils (%) (Auto) 53 42-75 % Lymphocytes (%) (Auto) 39 12-44 % Monocytes (%) (Auto) 6 0-12 % Eosinophils (%) (Auto) 1 0-10 % Basophils (%) (Auto) 1 0-10 % Neutrophils # (Auto) 5.8 1.8-7.8 10^3/uL Lymphocytes # (Auto) 4.3 H 1.0-4.0 10^3/uL Monocytes # (Auto) 0.7 0.0-1.0 10^3/uL Eosinophils # (Auto) 0.1 0.0-0.3 10^3/uL Basophils # (Auto) 0.1 0.0-0.1 10^3/uL Immature Granulocyte # (Auto) 0.1 0.0-0.1 10^3/uL D-Dimer < 0.27 0.00-0.49 UG/ML Sodium Level 137 135-145 MMOL/L Potassium Level 4.3 3.6-5.0 MMOL/L Chloride Level 107 98-107 MMOL/L Carbon Dioxide Level 19 L 21-32 MMOL/L Anion Gap 11 5-14 MMOL/L Blood Urea Nitrogen 12 7-18 MG/DL Creatinine 1.05 0.60-1.30 MG/DL Estimat Glomerular Filtration Rate > 60 BUN/Creatinine Ratio 11 Glucose Level 98 70-105 MG/DL Calcium Level 9.3 8.5-10.1 MG/DL Corrected Calcium 8.5-10.1 MG/DL Total Bilirubin 0.4 0.1-1.0 MG/DL Aspartate Amino Transf (AST/SGOT) 38 H 5-34 U/L Alanine Aminotransferase (ALT/SGPT) 72 H 0-55 U/L Alkaline Phosphatase 77 40-136 U/L Troponin I < 0.028 <0.028 NG/ML Total Protein 7.4 6.4-8.2 GM/DL Albumin 4.6 H 3.2-4.5 GM/DL Lipase 15 8-78 U/L My Orders Orders - TANVIR HOOD APRN Cbc With Automated Diff (12/30/20 13:42) Comprehensive Metabolic Panel (12/30/20 13:42) Troponin I (12/30/20 13:42) Fibrin Degradation Products (12/30/20 13:42) Chest 1 View, Ap/Pa Only (12/30/20 13:42) Ekg Tracing (12/30/20 13:42) Ketorolac Injection (Toradol Injection) (12/30/20 13:45) Ns Iv 1000 Ml (Sodium Chloride 0.9%) (12/30/20 13:45) Fentanyl Inj (Sublimaze Injection) (12/30/20 13:45) Us Gallbladder 45225 (12/30/20 13:47) Ct Head Wo (12/30/20 13:54) Antacid Suspension (Mylanta Suspension (12/30/20 15:45) Lidocaine 2% Viscous 15 Ml (Xylocaine Vi (12/30/20 15:45) Clonidine Tablet (Catapres Tablet) (12/30/20 16:00) Hydralazine Injection (Apresoline Inject (12/30/20 16:00) Lipase (12/30/20 15:53) Ct Chest W (12/30/20 15:53) Morphine Injection (Morphine Injection (12/30/20 15:53) Iohexol Injection (Omnipaque 350 Mg/Ml 1 (12/30/20 16:00) Received Contrast (Hold Metformin- Contr (12/30/20 16:00) Ns (Ivpb) (Sodium Chloride 0.9% Ivpb Bag (12/30/20 16:00) Lorazepam Injection (Ativan Injection) (12/30/20 16:45) Ns (Ivpb) (Sodium C... W/Nicardipine Iv (12/30/20 16:45) Medications Given in ED Current Medications Medications Dose Ordered Sig/Patricia Route Start Time Stop Time Status Last Admin Dose Admin Al Hydrox/Mg Hydrox/Simethicone 30 ml ONCE ONCE PO 12/30/20 15:45 12/30/20 15:46 DC 12/30/20 15:39 30 ML Clonidine HCl 0.1 mg ONCE ONCE PO 12/30/20 16:00 12/30/20 16:01 DC 12/30/20 15:58 0.1 MG Fentanyl Citrate 50 mcg ONCE ONCE IVP 12/30/20 13:45 12/30/20 13:46 DC 12/30/20 14:02 50 MCG Hydralazine HCl 10 mg ONCE ONCE IV 12/30/20 16:00 12/30/20 16:01 DC 12/30/20 15:58 10 MG Iohexol 100 ml ONCE ONCE IV 12/30/20 16:00 12/30/20 16:01 DC 12/30/20 16:13 74 ML Ketorolac Tromethamine 15 mg ONCE ONCE IVP 12/30/20 13:45 12/30/20 13:46 DC 12/30/20 14:00 15 MG Lidocaine HCl 15 ml ONCE ONCE PO 12/30/20 15:45 12/30/20 15:46 DC 12/30/20 15:39 15 ML Sodium Chloride 100 ml ONCE ONCE IV 12/30/20 16:00 12/30/20 16:01 DC 12/30/20 16:13 80 ML Vital Signs/I&O 12/30/20 12/30/20 12:56 12:56 Temp 36.6 Pulse 89 Resp 20 B/P (MAP) 154/115 (128) Pulse Ox 97 O2 Delivery Room Air Diagnostic Imaging Diagonstic Imaging: Xray, CT, Ultrasound Comments NAME: KEVEN MIN [facility] REC#: [id number] PT STATUS: REG ER : 1995 PHYSICIAN: TANVIR HOOD APRN ADMIT DATE: 12/30/20/ER Draft Date of Exam:12/30/20 US GALLBLADDER [id number] EXAM: Right upper quadrant ultrasound. DATE: December 30, 2020. COMPARISON: CT abdomen and pelvis December 25, 2020. INDICATION: 25-year-old male, right upper quadrant abdominal pain. PROCEDURE: Two-dimensional grayscale and color Doppler ultrasound examination of the right upper quadrant was performed. FINDINGS: Liver: There is a hypoechoic lesion in the liver measuring 2.4 x 2.6 x 1.7 cm in size on provided image 50 and adjacent images. There is question of internal blood flow. The liver is diffusely increased in echogenicity relative to the right kidney consistent with diffuse fatty infiltration of the liver. The outer liver contours are not nodular. Bile ducts and gallbladder: The gallbladder is not distended. There is no shadowing gallstone. The gallbladder wall measures 0.2 cm. There is no identified intrahepatic bile duct dilation. The common bile duct is not well demonstrated and is normal in caliber on December 25, 2020. Right kidney: Unremarkable appearance of the right renal parenchyma. No hydronephrosis. The right kidney measures 13.9 cm x 6.0 cm x 6.3 cm. Pancreas: The pancreas is not well seen. IMPRESSION: 1. Diffuse fatty infiltration of the liver. 2. Nonspecific hypoechoic lesion in the liver measuring 2.4 x 2.6 x 1.7 cm in size without clear correlate lesion on CT abdomen and pelvis from December 25, 2020. Further evaluation with MRI abdomen without and with intravenous contrast, liver mass protocol with in and out of phase imaging is recommended for further evaluation. 3. Additional right upper quadrant abdominal ultrasound evaluation is unremarkable. Dictated on workstation # [id number] Dict: 12/30/20 1457 Trans: 12/30/20 1524 PJE [id number] Interpreted by: SHUBHAM HERNANDEZ MD Electronically signed by: Departure Communication (Admissions) 1354-blood pressure 184/112. Still reports chest pain at 9.8 out of 10 which is up from 9.5 out of 10 on arrival. Clonidine and hydralazine and morphine ordered. We will do a CT of the chest. 1645-blood pressure down to 151/90. Heart rate 76. 1705-137/89. We will have him follow-up with primary care later this week to arrange outpatient MRI of the liver. Impression Primary Impression: Chest pain Additional Impressions: Hepatic steatosis Hypertension Disposition: HOME, SELF-CARE Condition: Improved Departure-Patient Inst. Decision time for Depature: 15:34 Referrals: [facility] [place] (PCP/Family) Primary Care Physician Patient Instructions: Chest Pain, Adult ED Add. Discharge Instructions: 1. There is a spot on his liver seen on ultrasound that was not seen on CT. This needs to be further evaluated with MRI of the abdomen which his primary care provider will help to schedule. Call tomorrow to schedule follow-up. The gallbladder ultrasound was otherwise unremarkable, there are no gallstones. All discharge instructions reviewed with patient and/or family. Voiced understanding. Copy Copies To 1: JAYLON WOLFE PETER J APRN December 30, 2020 13:46
[2020-12-30 14:01] LABS: BASOPHILS # (AUTO) 0.1 10^3/uL (0.0-0.1); BASOPHILS % (AUTO) 1 % (0-10); EOSINOPHILS # (AUTO) 0.1 10^3/uL (0.0-0.3); EOSINOPHILS % (AUTO) 1 % (0-10); HEMATOCRIT 48 % (40-54); HEMOGLOBIN 15.5 g/dL (13.3-17.7); LYMPHOCYTES # (AUTO) 4.3 10^3/uL (1.0-4.0); LYMPHOCYTES % (AUTO) 39 % (12-44); MEAN CORPUSCULAR HEMOGLOBIN 28 pg (25-34); MEAN CORPUSCULAR HGB CONC 33 g/dL (32-36); MEAN CORPUSCULAR VOLUME 84 fL (80-99); MEAN PLATELET VOLUME 11.7 fL (9.0-12.2); MONOCYTES # (AUTO) 0.7 10^3/uL (0.0-1.0); MONOCYTES % (AUTO) 6 % (0-12); NEUTROPHILS # (AUTO) 5.8 10^3/uL (1.8-7.8); NEUTROPHILS % (AUTO) 53 % (42-75); PLATELET COUNT 329 10^3/uL (130-400); WHITE BLOOD COUNT 11.1 10^3/uL (4.3-11.0)
[2020-12-30 14:02] LABS: ALBUMIN 4.6 GM/DL (3.2-4.5); CHLORIDE 107 MMOL/L (98-107); POTASSIUM 4.3 MMOL/L (3.6-5.0); SODIUM 137 MMOL/L (135-145)
[2020-12-30 14:03] LABS: CALCIUM 9.3 MG/DL (8.5-10.1)
[2020-12-30 14:04] LABS: GLUCOSE 98 MG/DL (70-105)
[2020-12-30 14:05] LABS: TOTAL PROTEIN 7.4 GM/DL (6.4-8.2)
[2020-12-30 14:06] LABS: BILIRUBIN,TOTAL 0.4 MG/DL (0.1-1.0); CARBON DIOXIDE 19 MMOL/L (21-32)
[2020-12-30 14:08] LABS: ALKALINE PHOSPHATASE 77 U/L (40-136); CREATININE SERUM 1.05 MG/DL (0.60-1.30); GFR ESTIMATED > 60
[2020-12-30 14:09] LABS: BUN/CREATININE RATIO 11
[2020-12-30 14:11] LABS: ALANINE AMINOTRANSFERASE 72 U/L (0-55)
--- NOTE | 2020-12-30 15:10 | Diagnostic Imaging Report ---
Indication: Chest pain. Comparison: 04/29/2019. Discussion: Single portable upright view of the chest was obtained. Elevated right hemidiaphragm. Normal heart size. No consolidation, pleural fluid or pneumothorax. No osseous abnormality. Impression: Negative portable chest. Dictated by: Dictated on workstation # [id number]
--- NOTE | 2020-12-30 15:25 | Diagnostic Imaging Report ---
EXAM: Right upper quadrant ultrasound. DATE: December 30, 2020. COMPARISON: CT abdomen and pelvis December 25, 2020. INDICATION: 25-year-old male, right upper quadrant abdominal pain. PROCEDURE: Two-dimensional grayscale and color Doppler ultrasound examination of the right upper quadrant was performed. FINDINGS: Liver: There is a hypoechoic lesion in the liver measuring 2.4 x 2.6 x 1.7 cm in size on provided image 50 and adjacent images. There is question of internal blood flow. The liver is diffusely increased in echogenicity relative to the right kidney consistent with diffuse fatty infiltration of the liver. The outer liver contours are not nodular. Bile ducts and gallbladder: The gallbladder is not distended. There is no shadowing gallstone. The gallbladder wall measures 0.2 cm. There is no identified intrahepatic bile duct dilation. The common bile duct is not well demonstrated and is normal in caliber on December 25, 2020. Right kidney: Unremarkable appearance of the right renal parenchyma. No hydronephrosis. The right kidney measures 13.9 cm x 6.0 cm x 6.3 cm. Pancreas: The pancreas is not well seen. IMPRESSION: 1. Diffuse fatty infiltration of the liver. 2. Nonspecific hypoechoic lesion in the liver measuring 2.4 x 2.6 x 1.7 cm in size without clear correlate lesion on CT abdomen and pelvis from December 25, 2020. Further evaluation with MRI abdomen without and with intravenous contrast, liver mass protocol with in and out of phase imaging is recommended for further evaluation. 3. Additional right upper quadrant abdominal ultrasound evaluation is unremarkable. Dictated by: Dictated on workstation # [id number]
--- NOTE | 2020-12-30 15:35 | Diagnostic Imaging Report ---
PROCEDURE: CT head without contrast. TECHNIQUE: Multiple contiguous axial images were obtained through the brain without the use of intravenous contrast. Auto Exposure Controls were utilized during the CT exam to meet ALARA standards for radiation dose reduction. DATE: December 30, 2020. COMPARISON: None. INDICATION: 25-year-old male, headache. FINDINGS: The ventricles and cerebral spinal fluid spaces are of normal size and configuration for the patient's age. There is no mass effect or midline shift. There is no acute intracranial hemorrhage. There is no abnormal extra-axial fluid collection. The visualized portions of the paranasal sinuses, mastoid air cells and middle ears are well aerated. IMPRESSION: No identified acute intracranial abnormality. Dictated by: Dictated on workstation # [id number]
[2020-12-30] MEDS ORDERED: LIDOCAINE 2% VISCOUS 15 ML UDC PO ONE (15:45)
[2020-12-30] MEDS ORDERED: ANTACID SUSP 30 ML UDC (MYLANTA) PO ONE (15:45)
[2020-12-30] MEDS ORDERED: morphine INJ 10 MG/ML 1ML (SYR OR VIAL) IVP STA (15:53)
[2020-12-30] MEDS ORDERED: IOHEXOL 350 MG/ML 100 ML (OMNIPAQUE 350) VIAL IV ONE (16:00)
[2020-12-30] MEDS ORDERED: cloNIDine 0.1 MG (CATAPRES) TAB PO ONE (16:00)
[2020-12-30] MEDS ORDERED: hydrALAZINE (APESOLINE) 20 MG/ML VIAL IV ONE (16:00)
[2020-12-30] MEDS ORDERED: NS 100 ML (IVPB) BAG IV ONE (16:00)
[2020-12-30] MEDS ORDERED: HOLD METFORMIN - RECEIVED CONTRAST 20 ML VIAL IV SCH (16:00)
--- NOTE | 2020-12-30 16:31 | Diagnostic Imaging Report ---
PROCEDURE: CT chest with contrast only. TECHNIQUE: Multiple contiguous axial images were obtained through the chest after administration of intravenous contrast. Auto Exposure Controls were utilized during the CT exam to meet ALARA standards for radiation dose reduction. DATE: December 30, 2020. COMPARISON: Chest radiograph December 30, 2020. INDICATION: 25-year-old male, chest pain. FINDINGS: There is no identified pulmonary nodule. There is no lung mass. There is no otherwise noted focal airspace consolidation. There is no pneumothorax. There is no pleural effusion. The central airways are patent. The heart is not enlarged. There is no pericardial effusion. There is incidental note of direct origin of the left vertebral artery off the aortic arch. There is no identified abnormally enlarged mediastinal, hilar or axillary lymph node meeting CT size criteria for adenopathy. There is diffuse fatty infiltration of the liver. The additional evaluation of the imaged portions of the upper abdomen is unremarkable. There is no identified acute bony abnormality. There is mild bilateral gynecomastia. IMPRESSION: CT chest: 1. No identified acute cardiopulmonary abnormality. 2. Diffuse fatty infiltration of the liver. 3. Mild bilateral gynecomastia. Dictated by: Dictated on workstation # [id number]
[2020-12-30] MEDS ORDERED: LORazepam INJ 2 MG/ML (ATIVAN) VIAL IVP PRN (16:45)
[2020-12-30] MEDS ORDERED: niCARdipine IV 50 MG in NS (IVPB) 230 ML IV SCH (16:45)
[2020-12-30 17:13] VITALS: BP 137/89
== END 2020-12-30 17:13 | disposition home or self-care (01) ==
LOC: EDUNIT# 12:25 → ER 12:27
DX: R07.9 Chest pain, unspecified (principal); K76.0 Fatty (change of) liver, not elsewhere classified; I10 Essential (primary) hypertension; E66.9 Obesity, unspecified; Z68.42 Body mass index [BMI] 45.0-49.9, adult; Z88.8 Allergy status to other drugs, medicaments and biological substances
CPT/HCPCS: 36415; 70450; 71045; 71260; 76705; 80053; 83690; 84484; 85025; 85379; 93005

== ENCOUNTER → 2021-01-11 | Outpatient (CLI) | payer MEDICARE, MEDICAID ==
[~2021-01-11] MED LIST changes: +CATHETER FLUSH 10 ML SYR IV PRN
--- NOTE | 2021-01-11 13:15 | Diagnostic Imaging Report ---
EXAMINATION: Gallbladder scintigraphy HISTORY: Right upper quadrant pain COMPARISON: None available. TECHNIQUE: Anterior scintigraphic imaging of the abdomen was performed after the intravenous administration of 5.1 mCi Tc-99m Choletec. FINDINGS: The upper abdomen was imaged for 60 minutes with the gamma camera. There is prompt homogeneous uptake of radiopharmaceutical by the liver. There is activity in the common duct and gallbladder by 10 minutes. Small bowel activity is seen by 20 minutes. At 15 minutes minutes, the patient received 8 ounces of ensure. After an additional 55 minutes minutes, the gallbladder ejection fraction was calculated to be 27% (normal is >35%) IMPRESSION: 1. Patent common and cystic bile ducts. 2. Reduced gallbladder ejection fraction 27% Dictated by: Dictated on workstation # [id number]
== END ==
LOC: CARD 10:47
PROVIDERS: ATTEND Pediatrics
DX: R10.11 Right upper quadrant pain (principal)
CPT/HCPCS: 78227; A9537

== ENCOUNTER 2021-02-14 06:42 | Outpatient (CLI) | payer MEDICARE, MEDICAID ==
[~2021-02-14] VITALS: Ht 180.3 cm; Wt 152.3 kg
[~2021-02-14 06:42] MED LIST changes: -CATHETER FLUSH 10 ML SYR IV PRN
[2021-02-14] MEDS ORDERED: LURA40TA3 PO (10:13)
== END 2021-02-14 15:11 | disposition home or self-care (01) ==
LOC: PREOP 06:42
PROVIDERS: ATTEND Surgery
DX: Z01.818 Encounter for other preprocedural examination (principal)

== ENCOUNTER 2021-02-21 07:25 | Day surgery (SDC) | payer MEDICARE, MEDICAID ==
[~2021-02-21] VITALS: Ht 180.3 cm; Wt 152.3 kg
[2021-02-21] VITALS (9 sets, daily range): BP systolic 108–171; BP diastolic 66–97
[~2021-02-21 07:25] MED LIST changes: +LURA40TA3 PO
[2021-02-21] MEDS ORDERED: ceFAZolin INJECTION 1,000 MG in WATER (STERILE) FOR INJECTION 10 ML IV ONE (07:30)
[2021-02-21] MEDS ORDERED: LIDOCAINE/EPI 1%-1:100,000 (XYLOCAINE) 20ML ONE (07:36)
[2021-02-21] MEDS ORDERED: IOPAMIDOL 61% 30 ML (ISOVUE 300) VIAL IV ONE (07:45)
--- NOTE | 2021-02-21 08:02 | Progress Note-Pre Operative ---
Pre-Operative Progress Note H&P Reviewed The H&P was reviewed, patient examined and no changes noted. Date Seen by Provider: Feb 21, 2021 Time Seen by Provider: 08:02 Date H&P Reviewed: Feb 21, 2021 Time H&P Reviewed: 08:02 Pre-Operative Diagnosis: biliary dyskinesia KIM IBRAHIM DO Feb 21, 2021 08:02
[2021-02-21] MEDS ORDERED: ceFAZolin 2 GM IV Premixed 50 ML ONE (08:11)
[2021-02-21] MEDS ORDERED: ceFAZolin 2 GM IV Premixed 50 ML IV ONE (08:15)
[2021-02-21] MEDS ORDERED: LIDOCAINE PF 2% 5 ML (XYLOCAINE) VIAL ONE (08:23)
[2021-02-21] MEDS ORDERED: ROCURONIUM 10 MG/ML 5 ML SYRINGE IV ONE ×2 (08:23→10:19)
[2021-02-21] MEDS ORDERED: proPOfol 200 MG/20 ML (DIPRIVAN) VIAL IV ONE ×2 (08:23→08:27)
[2021-02-21] MEDS ORDERED: ONDANSETRON 4 MG/2 ML (SDV) Z0FRAN ONE ×2 (08:23→10:42)
[2021-02-21] MEDS ORDERED: MIDAZOLAM 2 MG/2 ML (VERSED) VIAL ONE (08:25)
[2021-02-21] MEDS ORDERED: fentaNYL INJ 100 MCG/2 ML AMP ONE (08:26)
[2021-02-21] MEDS: LACTATED RINGERS 1,000 ML IV PRN ×2 (08:27→10:10)
[2021-02-21] MEDS ORDERED: ASPI-999 PO (09:09)
[2021-02-21] MEDS ORDERED: NEOSTIGMINE 3 MG/3 ML VIAL ONE (10:20)
[2021-02-21] MEDS ORDERED: GLYCOPYRROLATE 0.2 MG/ML (ROBINUL) 2 ML VIAL ONE (10:20)
[2021-02-21] MEDS ORDERED: ACHD5005 PO (10:21)
[2021-02-21] MEDS ORDERED: DOCU-143 PO (10:21)
--- NOTE | 2021-02-21 10:22 | Discharge Inst-Simple/Standard ---
Discharge Inst-Standard Discharge Medications New, Converted or Re-Newed RX: Transmitted to Pharmacy Patient Instructions/Follow Up Plan of Care/Instructions/FU: 2-3 weeks Malachi Activity as Tolerated: No Discharge Diet: Regular Diet Other Inst to Patient Follow up Appt: Make appointment for 2-3 weeks. Instructions: No lifting greater than 10 pounds. No strenuous activity. May shower in 24 hours, no tub bath or soaking. Use incentive spirometer at home as directed. No Smoking Skin/Wound Care: You have special glue over incision, it will fall off on it's own. Symptoms to Report: Appetite Changes, Extremity Discoloration, Numbness/Tingling, Swelling Increased, Bleeding Excessive, Eyesight Changes, Pain Increased, Urine Color Change, Constipation(Persistent), Fever over 101 degree F, Pain/Pressure in chest, Urinating Difficulty, Cough Up/Vomit Blood, Heart Beat Irreg/Pounding, Pain/Pressure in jaw, Vaginal Bleeding Increase, Cramps in feet or legs, Lightheadedness, Pain/Pressure in shoulder, Diarrhea(Persistent), Memory Changes Suddenly, Questions/Concerns, Weight gain consecutive days, Dizziness/Fainting, Nausea/Vomiting, Shortness of Breath, Weight gain over 2 pounds. If eyes or skin turn yellow notify physician. If questions or concerns contact your physician Or seek help at emergency department. KIM IBRAHIM DO Feb 21, 2021 10:22
--- NOTE | 2021-02-21 10:26 | Progress Note-Post Operative ---
Post-Operative Progess Note Surgeon (s)/Metallic Yarn Slitting Machine Operator (s) Surgeon KIM IBRAHIM DO Metallic Yarn Slitting Machine Operator: Dr. Jaret joseblue in retraction dissection and closure for morbidobesity Pre-Operative Diagnosis biliary dyskinesia Post-Operative Diagnosis same Procedure & Operative Findings Date of Procedure 02/21/21 Procedure Performed/Findings PROCEDURE: Laparoscopic cholecystectomy with attempted intraoperative cholangiogram. COMPLICATIONS: None. PROCEDURE: The patient was taken to the operating suite and was prepped and draped in sterile fashion. A surgical pause was performed. Just superior to the umbilicus, a 12 mm incision was made. Dissection was taken down to the fascia, which was then scored and grasped with a Zeyad and the abdomen was then entered. A 0 Vicryl suture was placed in a [id number] fashion and a Alfaro trocar was placed and secured. Pneumoperitoneum was achieved. A 5mm trochar place in the subxyphoid and 2 in the right upper quadrant. The gallbladder was then grasped and elevated. Adhesions taken down. The cystic duct, and cystic artery were then dissected out. Clip was placed on the distal portion of the cystic duct which was then partially transected. An arrow catheter was attempted to be inserted into the duct. Duct to narrow and could not place catheter down duct so catheter removed. Clips were placed on proximal portion of the cystic duct and then the duct was then transected. Clips were placed along the proximal and distal portion of the cystic artery which was then transected. Hook cautery was used to dissect the gallbladder from the gallbladder fossa achieving hemostasis. The gallbladder was placed in an Endobag and removed through the 12 mm trocar site. The abdomen was then reinspected. Copious amounts of irrigation were used to irrigate the abdomen and there were no signs of active bleeding. Hemostasis had been achieved. The 12 mm fascial defect was then closed with 0 Vicryl suture that had been placed in a batgza-up-owshn fashion. The abdomen was then desufflated, the trocars were removed. The abdomen was then washed and dried. The skin was then closed using 4-0 Monocryl in a subcuticular fashion. The abdomen was washed and dried and Skin Affix was place over incisions. Patient tolerated the procedure well without any complications and was taken to the recovery room in stable condition. Anesthesia Type general Estimated Blood Loss Estimated blood loss (mL): minimal Specimens/Packing Specimens Removed gallbladder KIM IBRAHIM DO Feb 21, 2021 10:26
[2021-02-21] MEDS ORDERED: SEVOFLURANE (ULTANE) 15 ML INHAL SOLN ONE (10:30)
--- NOTE | 2021-02-21 10:37 | Anesthesia-General Post-Op ---
General Patient Condition Mental Status/LOC: Same as Preop Cardiovascular: Satisfactory Nausea/Vomiting: Absent Respiratory: Satisfactory Pain: Controlled Complications: Absent Post Op Complications Complications None Follow Up Care/Instructions Patient Instructions None needed. Anesthesia/Patient Condition Patient Condition Patient is doing well, no complaints, stable vital signs, no apparent adverse anesthesia problems. No complications reported per nursing. PIETER GALLEGOS CRNA Feb 21, 2021 10:37
[2021-02-21] MEDS ORDERED: morphine INJ 10 MG/ML 1ML (SYR OR VIAL) ONE (10:42)
[2021-02-21] MEDS ORDERED: ONDANSETRON 4 MG/2 ML (SDV) Z0FRAN IVP PRN (10:45)
[2021-02-21] MEDS ORDERED: HYDROmorphone 2 MG/ML VIAL (DILAUDID) IV ONE (10:45)
[2021-02-21] MEDS ORDERED: fentaNYL INJ 100 MCG/2 ML AMP IVP ONE (10:45)
[2021-02-21] MEDS ORDERED: MEPERIDINE (DEMEROL) INJ 50 MG/ML IVP ONE (10:45)
[2021-02-21] MEDS ORDERED: morphine INJ 10 MG/ML 1ML (SYR OR VIAL) IVP ONE (10:45)
[2021-02-21] MEDS ORDERED: HYDROcodone/APAP 5 MG/325 MG (LORTAB) TAB PO ONE (11:15)
== END 2021-02-21 12:55 | disposition home or self-care (01) ==
LOC: SDC 07:25
PROVIDERS: ATTEND Surgery
DX: K81.1 Chronic cholecystitis (principal); K82.8 Other specified diseases of gallbladder; F84.0 Autistic disorder; E66.01 Morbid (severe) obesity due to excess calories; Z68.42 Body mass index [BMI] 45.0-49.9, adult; Z79.899 Other long term (current) drug therapy
CPT/HCPCS: 87081

== ENCOUNTER 2021-07-08 16:32 | Inpatient (IN) | payer MEDICARE, MEDICAID ==
[~2021-07-08] VITALS: Ht 180 cm; Wt 156.9 kg
[~2021-07-08 16:32] MED LIST changes: +ACHD5005 PO; +ASPI-999 PO; +DOCU-143 PO
[2021-07-08] MEDS ORDERED: ONDANSETRON 4 MG/2 ML (SDV) Z0FRAN IVP ONE (17:15)
[2021-07-08] MEDS ORDERED: KETOROLAC 30 MG/ML VIAL IVP ONE (17:15)
--- NOTE | 2021-07-08 17:19 | ED Abdominal Pain ---
General Stated Complaint: BACK AND STOMACH PAIN Source of Information: Patient, Family Exam Limitations: No Limitations (TANVIR HOOD APRN) History of Present Illness Date Seen by Provider: Jul 08, 2021 Time Seen by Provider: 17:18 Initial Comments 26-year-old autistic male to ER by mother with reports of right lower abdominal pain that radiates to the right flank with nausea vomiting today. He has had some burning on urination for a few weeks he says. No fevers or chills. Timing/Duration: 1-2 Days Severity/Quality: Moderate Radiation: No Radiation Activities at Onset: None Associated Symptoms: Nausea/Vomiting (TANVIR HOOD APRN) Allergies and Home Medications Allergies Coded Allergies: oxcarbazepine (Unverified Allergy, Severe, RASH, 09/17/14) Patient Home Medication List Home Medication List Reviewed: Yes (TANVIR HOOD APRN) Aspirin (Aspirin) 81 Mg Tab.chew, 81 MG PO DAILY, (Reported) Entered as Reported by: AMANDEEP LAZO on 02/21/21 0909 Clomipramine HCl (Clomipramine HCl) 25 Mg Capsule, 25 MG PO HS, (Reported) Entered as Reported by: TU KRISHNAN on 09/17/16953 Last Action: Converted Docusate Sodium (Colace) 100 Mg Capsule, 100 MG PO DAILY Prescribed by: KIM IBRAHIM on 02/21/21 1021 Guanfacine HCl (Guanfacine HCl ER) 3 Mg Tab.er.24h, 3 MG PO HS, (Reported) Entered as Reported by: TU KRISHNAN on 09/17/16 0954 Last Action: Converted Hydrocodone/Acetaminophen (Hydrocodone-Acetamin 5-325 mg) 1 Each Tablet, 1 EACH PO Q4H PRN for PAIN-MODERATE (5-7) Prescribed by: KIM IBRAHIM on 02/21/21 1021 Lurasidone HCl (Latuda) 40 Mg Tablet, 40 MG PO HS, (Reported) Entered as Reported by: GALEN WILSON on 02/14/21 1013 Last Action: Converted Topiramate (Topiramate) 200 Mg Tablet, 200 MG PO HS, (Reported) Entered as Reported by: TU KRISHNAN on 09/17/16 0954 Last Action: Converted Review of Systems Review of Systems Constitutional: see HPI EENTM: No Symptoms Reported Respiratory: No Symptoms Reported Cardiovascular: No Symptoms Reported Gastrointestinal: See HPI, Abdominal Pain, Nausea Genitourinary: No Symptoms Reported Musculoskeletal: no symptoms reported Skin: no symptoms reported Psychiatric/Neurological: No Symptoms Reported Endocrine: No Symptoms Reported Hematologic/Lymphatic: No Symptoms Reported (TANVIR HOOD APRN) Past Zkojeik-Wkatof-Gmumhc Hx Immunizations Up To Date Tetanus Booster (TDap): Unknown PED Vaccines UTD: No (TANVIR HOOD APRN) Seasonal Allergies Seasonal Allergies: No (TANVIR HOOD APRN) Past Medical History Surgeries: Yes (bmt) Ear Surgery Respiratory: No Cardiac: No Neurological: Yes (AUTISTIC) Developmental Disorder Reproductive Disorders: No Sexually Transmitted Disease: No Genitourinary: No Gastrointestinal: Yes (non-alcholic fatty liver) Gall Bladder Disease Musculoskeletal: No Endocrine: No HEENT: No Chronic Ear Infection Cancer: No Psychosocial: Yes (AUTISM) Integumentary: No Blood Disorders: No Adverse Reaction/Blood Tranf: No (TANVIR HOOD APRN) Family Medical History AIDS 19 FATHER Asthma G8 BROTHER Myocardial infarction 19 FATHER Physical Exam Vital Signs Vital Signs - First Documented 07/08/21 17:08 Temp 36.0 Pulse 100 Resp 18 B/P (MAP) 153/103 (120) Pulse Ox 98 O2 Delivery Room Air (MANJEET HERRERA MD) Vital Signs Capillary Refill : (TANVIR HOOD APRN) Height/Weight/BMI Height: 5'10.00" Weight: 339lbs. 7.0oz. 153.315143gj; 46.84 BMI Method:Stated General Appearance: WD/WN, no apparent distress, obese (Alert and oriented no distress) Neck: non-tender, full range of motion Respiratory: no respiratory distress, no accessory muscle use Cardiovascular: no murmur, tachycardia (Rate of 105) Gastrointestinal: normal bowel sounds, soft, tenderness Extremities: normal range of motion, non-tender Back: CVA tenderness (R), CVA tenderness (L) Neurologic/Psychiatric: alert, normal mood/affect, oriented x 3 Skin: normal color, warm/dry (TANVIR HOOD APRN) Progress/Results/Core Measures Results/Orders Lab Results Laboratory Tests Test 07/08/21 17:13 07/08/21 17:22 Range/Units White Blood Count 22.2 H 4.3-11.0 10^3/uL Red Blood Count 5.96 H 4.30-5.52 10^6/uL Hemoglobin 16.7 13.3-17.7 g/dL Hematocrit 49 40-54 % Mean Corpuscular Volume 82 80-99 fL Mean Corpuscular Hemoglobin 28 25-34 pg Mean Corpuscular Hemoglobin Concent 34 32-36 g/dL Red Cell Distribution Width 12.6 10.0-14.5 % Platelet Count 429 H 130-400 10^3/uL Mean Platelet Volume 10.9 9.0-12.2 fL Immature Granulocyte % (Auto) 1 % Neutrophils (%) (Auto) 64 42-75 % Lymphocytes (%) (Auto) 27 12-44 % Monocytes (%) (Auto) 6 0-12 % Eosinophils (%) (Auto) 1 0-10 % Basophils (%) (Auto) 1 0-10 % Neutrophils # (Auto) 14.2 H 1.8-7.8 10^3/uL Lymphocytes # (Auto) 6.0 H 1.0-4.0 10^3/uL Monocytes # (Auto) 1.3 H 0.0-1.0 10^3/uL Eosinophils # (Auto) 0.1 0.0-0.3 10^3/uL Basophils # (Auto) 0.2 H 0.0-0.1 10^3/uL Immature Granulocyte # (Auto) 0.3 H 0.0-0.1 10^3/uL Neutrophils % (Manual) 60 % Lymphocytes % (Manual) 31 % Monocytes % (Manual) 9 % Blood Morphology Comment NORMAL Sodium Level 135 135-145 MMOL/L Potassium Level 3.5 L 3.6-5.0 MMOL/L Chloride Level 100 98-107 MMOL/L Carbon Dioxide Level 19 L 21-32 MMOL/L Anion Gap 16 H 5-14 MMOL/L Blood Urea Nitrogen 17 7-18 MG/DL Creatinine 1.09 0.60-1.30 MG/DL Estimat Glomerular Filtration Rate 81 BUN/Creatinine Ratio 16 Glucose Level 108 H 70-105 MG/DL Calcium Level 9.6 8.5-10.1 MG/DL Corrected Calcium 8.5-10.1 MG/DL Total Bilirubin 0.5 0.1-1.0 MG/DL Aspartate Amino Transf (AST/SGOT) 29 5-34 U/L Alanine Aminotransferase (ALT/SGPT) 67 H 0-55 U/L Alkaline Phosphatase 85 40-136 U/L Total Protein 7.9 6.4-8.2 GM/DL Albumin 4.8 H 3.2-4.5 GM/DL Lipase 16 8-78 U/L Procalcitonin 0.06 <0.10 NG/ML Urine Color YELLOW Urine Clarity CLEAR Urine pH 6.0 5-9 Urine Specific [place] 1.015 L 1.016-1.022 Urine Protein NEGATIVE NEGATIVE Urine Glucose (UA) NEGATIVE NEGATIVE Urine Ketones NEGATIVE NEGATIVE Urine Nitrite NEGATIVE NEGATIVE Urine Bilirubin NEGATIVE NEGATIVE Urine Urobilinogen 0.2 < = 1.0 MG/DL Urine Leukocyte Esterase NEGATIVE NEGATIVE Urine RBC (Auto) NEGATIVE NEGATIVE Urine RBC NONE /HPF Urine WBC NONE /HPF Urine Squamous Epithelial Cells 0-2 /HPF Urine Crystals PRESENT H /LPF Urine Amorphous Sediment RARE IRINA URATES H /LPF Urine Bacteria NEGATIVE /HPF Urine Casts NONE /LPF Urine Mucus NEGATIVE /LPF Urine Culture Indicated NO (MANJEET HERRERA MD) Vital Signs/I&O 07/08/21 17:08 Temp 36.0 Pulse 100 Resp 18 B/P (MAP) 153/103 (120) Pulse Ox 98 O2 Delivery Room Air (MANJEET HERRERA MD) Departure Communication (Admissions) 1829-he does have leukocytosis and little tachycardia though that was shortly after vomiting. This could be stress related. His urine does not support a diagnosis of pyelonephritis. He has not had fevers. Blood cultures are pending as is a forced urine culture. We will empirically treat with Rocephin. The Toradol did not help with his right flank pain so fentanyl was ordered. His vomiting is better now. Will admit to Dr. Sanford. (TANVIR HOOD APRN) Impression Primary Impression: Nausea and vomiting Additional Impressions: Flank pain Suspected pyelonephritis Disposition: ADMITTED INPATIENT Condition: Stable Admissions Decision to Admit Reason: Admit from ER (General) Decision to Admit/Date: Jul 08, 2021 Time/Decision to Admit Time: 18:30 (TANVIR HOOD APRN) Departure-Patient Inst. Referrals: [facility] [place] (PCP) Primary Care Physician DUFF,RHETT V DO (Family) Primary Care Physician TANVIR HOOD APRN Jul 08, 2021 17:19 MANJEET HERRERA MD Jul 09, 2021 06:16
[2021-07-08 17:23] LABS: BASOPHILS # (AUTO) 0.2 10^3/uL (0.0-0.1); BASOPHILS % (AUTO) 1 % (0-10); EOSINOPHILS # (AUTO) 0.1 10^3/uL (0.0-0.3); EOSINOPHILS % (AUTO) 1 % (0-10); HEMATOCRIT 49 % (40-54); HEMOGLOBIN 16.7 g/dL (13.3-17.7); LYMPHOCYTES % (AUTO) 27 % (12-44); MEAN CORPUSCULAR HEMOGLOBIN 28 pg (25-34); MEAN CORPUSCULAR HGB CONC 34 g/dL (32-36); MEAN CORPUSCULAR VOLUME 82 fL (80-99); MEAN PLATELET VOLUME 10.9 fL (9.0-12.2); MONOCYTES # (AUTO) 1.3 10^3/uL (0.0-1.0); MONOCYTES % (AUTO) 6 % (0-12); NEUTROPHILS # (AUTO) 14.2 10^3/uL (1.8-7.8); NEUTROPHILS % (AUTO) 64 % (42-75); PLATELET COUNT 429 10^3/uL (130-400); WHITE BLOOD COUNT 22.2 10^3/uL (4.3-11.0)
[2021-07-08 17:26] LABS: BILIRUBIN,URINE NEGATIVE (NEGATIVE); CLARITY,URINE CLEAR; COLOR,URINE YELLOW; GLUCOSE, URINE (UA) NEGATIVE (NEGATIVE); KETONES,URINE NEGATIVE (NEGATIVE); LEUKOCYTE ESTERASE ,URINE NEGATIVE (NEGATIVE); NITRITE,URINE NEGATIVE (NEGATIVE); PROTEIN,URINE NEGATIVE (NEGATIVE)
[2021-07-08 17:33] LABS: ALBUMIN 4.8 GM/DL (3.2-4.5); CHLORIDE 100 MMOL/L (98-107); POTASSIUM 3.5 MMOL/L (3.6-5.0); SODIUM 135 MMOL/L (135-145)
[2021-07-08 17:34] LABS: CALCIUM 9.6 MG/DL (8.5-10.1)
[2021-07-08 17:35] LABS: GLUCOSE 108 MG/DL (70-105); TOTAL PROTEIN 7.9 GM/DL (6.4-8.2)
[2021-07-08 17:36] LABS: CARBON DIOXIDE 19 MMOL/L (21-32)
[2021-07-08 17:37] LABS: AMORPHOUS SEDIMENT,UR RARE AMOR URATES /LPF; BACTERIA,URINE NEGATIVE /HPF; SQUAMOUS EPITHELIAL CELL,UR 0-2 /HPF
[2021-07-08 17:37] LABS: BILIRUBIN,TOTAL 0.5 MG/DL (0.1-1.0)
[2021-07-08 17:39] LABS: ALKALINE PHOSPHATASE 85 U/L (40-136); CREATININE SERUM 1.09 MG/DL (0.60-1.30); GFR ESTIMATED 81
[2021-07-08 17:40] LABS: BUN/CREATININE RATIO 16
[2021-07-08 17:42] LABS: ALANINE AMINOTRANSFERASE 67 U/L (0-55); LIPASE 16 U/L (8-78)
[2021-07-08 17:59] LABS: LYMPHOCYTES % (MANUAL) 31 %; MONOCYTES % (MANUAL) 9 %; NEUTROPHILS % (MANUAL) 60 %; RBC MORPH NORMAL
--- NOTE | 2021-07-08 18:14 | Diagnostic Imaging Report ---
PROCEDURE: CT abdomen and pelvis without contrast. TECHNIQUE: Multiple contiguous axial images were obtained through the abdomen and pelvis without the use of intravenous contrast. Auto Exposure Controls were utilized during the CT exam to meet ALARA standards for radiation dose reduction. INDICATION: Right-sided abdominal pain and flank pain EXAMINATION: CT abdomen and pelvis without contrast 07/08/2021 COMPARISON: 12/25/2020 FINDINGS: The lung bases clear. The nonopacified abdominal viscera limited given the lack of contrast with fatty infiltration throughout the liver. There is evidence of previous cholecystectomy. The spleen is slightly prominent. The pancreas and adrenal glands unremarkable. The gallbladder surgically absent. There is no nephrolithiasis or hydronephrosis. There are no ureteral stones. There is no ascites or free air. Appendix unremarkable. There is no acute osseous abnormality. IMPRESSION: 1. No acute abnormality with incidental findings as described above. Dictated by: Dictated on workstation # [id number]
[2021-07-08] MEDS ORDERED: cefTRIAXone 2,000 MG in WATER (STERILE) FOR INJECTION 20 ML IV ONE (18:30)
[2021-07-08] MEDS ORDERED: fentaNYL INJ 100 MCG/2 ML AMP IVP ONE (18:30)
[2021-07-08] MEDS ORDERED: ONDANSETRON 4 MG/2 ML (SDV) Z0FRAN IV PRN (19:45)
[2021-07-08] MEDS ORDERED: CATHETER FLUSH 10 ML SYR IV PRN (19:45)
[2021-07-08] MEDS ORDERED: IBUPROFEN 600 MG (MOTRIN) TAB PO PRN (19:45)
[2021-07-08] MEDS ORDERED: fentaNYL INJ 100 MCG/2 ML AMP IV PRN (19:45)
[2021-07-08] MEDS ORDERED: ACETAMINOPHEN 325 MG TABLET PO PRN (19:45)
[2021-07-08 20:00] VITALS: BP 134/87
[2021-07-08] MEDS: LACTATED RINGERS 1,000 ML IV SCH (20:33)
[2021-07-09] VITALS: BP 133/83
[2021-07-09 04:22] VITALS: BP 131/65
[2021-07-09] MEDS: LACTATED RINGERS 1,000 ML IV SCH ×4 (05:17→21:18)
[2021-07-09 06:28] LABS: BASOPHILS # (AUTO) 0.1 10^3/uL (0.0-0.1); BASOPHILS % (AUTO) 1 % (0-10); EOSINOPHILS # (AUTO) 0.1 10^3/uL (0.0-0.3); EOSINOPHILS % (AUTO) 1 % (0-10); HEMATOCRIT 44 % (40-54); HEMOGLOBIN 14.9 g/dL (13.3-17.7); LYMPHOCYTES # (AUTO) 4.7 10^3/uL (1.0-4.0); LYMPHOCYTES % (AUTO) 39 % (12-44); MEAN CORPUSCULAR HEMOGLOBIN 28 pg (25-34); MEAN CORPUSCULAR HGB CONC 34 g/dL (32-36); MEAN CORPUSCULAR VOLUME 83 fL (80-99); MONOCYTES # (AUTO) 0.7 10^3/uL (0.0-1.0); MONOCYTES % (AUTO) 6 % (0-12); NEUTROPHILS # (AUTO) 6.2 10^3/uL (1.8-7.8); NEUTROPHILS % (AUTO) 52 % (42-75); PLATELET COUNT 322 10^3/uL (130-400)
[2021-07-09 06:37] LABS: POTASSIUM 3.4 MMOL/L (3.6-5.0)
[2021-07-09 06:38] LABS: CALCIUM 8.9 MG/DL (8.5-10.1)
[2021-07-09 06:42] LABS: CREATININE SERUM 1.02 MG/DL (0.60-1.30)
[2021-07-09 08:20] VITALS: BP 149/94
[2021-07-09] MEDS: cefTRIAXone 1,000 MG/SWFI 10 ML IV PUSH IV SCH ×2 (09:27)
[2021-07-09] MEDS ORDERED: LATUDA PO (10:24)
[2021-07-09] MEDS ORDERED: LISI1TAB29 PO (10:24)
[2021-07-09] MEDS ORDERED: SENN-234 PO (10:24)
[2021-07-09 11:59] VITALS: BP 151/100
[2021-07-09 15:30] VITALS: BP 150/70
--- NOTE | 2021-07-09 17:09 | History & Physical ---
HPI History of Present Illness: 26 yo M that presented with right flank pain. Patient started having fevers and chills with the flank pain. States that he had a previous episode in middle school of pyelonephritis and it is similar. He was also having N/V that has improved with fluids and he would like to try to eat today. Source: patient, father, mother Date seen by provider: Jul 09, 2021 Time Seen by Provider: 11:15 Attending Physician Meron Sanford MD [facility] [place] Consult Date of Admission Jul 08, 2021 at 18:26 Home Medications Home Medications Reviewed patient Home Medication Reconciliation performed by pharmacy medication reconciliations ct technician and/or nursing. Patients Allergies have been reviewed. Allergies Coded Allergies: oxcarbazepine (Unverified Allergy, Severe, RASH, 09/17/14) [facility]-Gbcaqm Hx Patient Social History Smoking Status: Never a Smoker 2nd Hand Smoke Exposure: No Recent Hopitalizations: No Alcohol Use?: No Have you traveled recently?: No Immunizations Up To Date Tetanus Booster (TDap): Unknown Date of Influenza Vaccine: Jun 20, 2021 Past Medical History Autism Obesity HTN Family Medical History Family History: AIDS 19 FATHER Asthma G8 BROTHER Myocardial infarction 19 FATHER Review of Systems ([facility]) Constitutional: chills, fever, malaise EENTM: no symptoms reported; No mouth pain, No nose congestion, No nose pain Respiratory: no symptoms reported; No cough, No dyspnea on exertion, No short of breath Cardiovascular: no symptoms reported; No chest pain, No edema, No palpitations Gastrointestinal: abdominal pain, diarrhea, loss of appetite, nausea, vomiting Genitourinary: No dysuria; frequency Musculoskeletal: back pain; No joint pain, No muscle pain Skin: no symptoms reported; No lesions, No rash Psychiatric/Neurological: No Symptoms Reported Reviewed Test Results Reviewed Test Results Lab Laboratory Tests Test 07/09/21 05:45 Range/Units White Blood Count 12.0 H 4.3-11.0 10^3/uL Red Blood Count 5.31 4.30-5.52 10^6/uL Hemoglobin 14.9 13.3-17.7 g/dL Hematocrit 44 40-54 % Mean Corpuscular Volume 83 80-99 fL Mean Corpuscular Hemoglobin 28 25-34 pg Mean Corpuscular Hemoglobin Concent 34 32-36 g/dL Red Cell Distribution Width 12.8 10.0-14.5 % Platelet Count 322 130-400 10^3/uL Mean Platelet Volume 11.0 9.0-12.2 fL Immature Granulocyte % (Auto) 1 % Neutrophils (%) (Auto) 52 42-75 % Lymphocytes (%) (Auto) 39 12-44 % Monocytes (%) (Auto) 6 0-12 % Eosinophils (%) (Auto) 1 0-10 % Basophils (%) (Auto) 1 0-10 % Neutrophils # (Auto) 6.2 1.8-7.8 10^3/uL Lymphocytes # (Auto) 4.7 H 1.0-4.0 10^3/uL Monocytes # (Auto) 0.7 0.0-1.0 10^3/uL Eosinophils # (Auto) 0.1 0.0-0.3 10^3/uL Basophils # (Auto) 0.1 0.0-0.1 10^3/uL Immature Granulocyte # (Auto) 0.2 H 0.0-0.1 10^3/uL Sodium Level 138 135-145 MMOL/L Potassium Level 3.4 L 3.6-5.0 MMOL/L Chloride Level 100 98-107 MMOL/L Carbon Dioxide Level 24 21-32 MMOL/L Anion Gap 14 5-14 MMOL/L Blood Urea Nitrogen 14 7-18 MG/DL Creatinine 1.02 0.60-1.30 MG/DL Estimat Glomerular Filtration Rate 88 BUN/Creatinine Ratio 14 Glucose Level 100 70-105 MG/DL Calcium Level 8.9 8.5-10.1 MG/DL Physical Exam-([facility]) Physical Exam Vital Signs VS - Last 72 Hours, by Label 07/08/21 07/08/21 07/08/21 07/09/21 17:08 19:24 20:00 00:00 Temp 36.0 36.3 36.5 36.8 Pulse 100 93 83 82 Resp 18 16 18 18 B/P (MAP) 153/103 (120) 146/95 134/87 (103) 133/83 (100) Pulse Ox 98 98 98 97 O2 Delivery Room Air Room Air Room Air Room Air 07/09/21 07/09/21 07/09/21 07/09/21 00:43 04:22 08:00 08:20 Temp 36.6 36.2 Pulse 82 78 Resp 17 18 B/P (MAP) 131/65 (87) 149/94 (112) Pulse Ox 97 96 94 O2 Delivery Room Air Room Air Room Air Room Air 07/09/21 07/09/21 07/09/21 11:59 15:30 20:19 Temp 36.4 36.2 36.4 Pulse 87 88 80 Resp 18 20 20 B/P (MAP) 151/100 (117) 150/70 (96) 130/60 (83) Pulse Ox 97 95 95 O2 Delivery Room Air Room Air Room Air Capillary Refill : Less Than 3 Seconds General Appearance: WD/WN, no apparent distress, obese HEENT: PERRL/EOMI Neck: non-tender, full range of motion Respiratory: chest non-tender, lungs clear, normal breath sounds, no respiratory distress, no accessory muscle use Cardiovascular: normal peripheral pulses, regular rate, rhythm, no edema, no murmur Gastrointestinal: normal bowel sounds, non tender, soft Back: no vertebral tenderness, CVA tenderness (R) Extremities: normal range of motion, non-tender, normal inspection, no pedal edema, no calf tenderness, normal capillary refill Neurologic/Psychiatric: rotary furnace tender II-XII nml as tested, no motor/sensory deficits, alert, normal mood/affect, oriented x 3 Skin: normal color, warm/dry Lymphatic: no adenopathy Assessment/Plan Assessment/Plan Admission Status: Inpatient Order (span 2 midnights) Reason for Inpatient Admission: Patient requiring IVFs and IV antibiotics (1) Pyelonephritis Status: Acute Assessment & Plan: - Continue IV antibiotics and IVFs, continue to push PO hydration (2) Sepsis Status: Acute Assessment & Plan: - HDS, signs of sepsis resovled this AM Qualifiers: Qualified Codes: A41.9 - Sepsis, unspecified organism (3) Nausea and vomiting Status: Acute Assessment & Plan: - Improving, advance as tolerated Qualifiers: Qualified Codes: R11.2 - Nausea with vomiting, unspecified (4) Hypertension Status: Chronic Assessment & Plan: - Continue home meds Qualifiers: Qualified Codes: I10 - Essential (primary) hypertension MERON SANFORD MD Jul 09, 2021 17:09
[2021-07-09 20:19] VITALS: BP 130/60
[2021-07-09] MEDS ORDERED: ASPIRIN 81 MG CHEW (CHILDREN'S ASA) PO SCH (21:00)
[2021-07-09] MEDS ORDERED: LURASIDONE 40 MG (LATUDA) TABLET NON-FORM PO SCH ×2 (21:00)
[2021-07-09] MEDS ORDERED: TOPIRAMATE 200 MG TAB PO SCH (21:00)
[2021-07-09] MEDS ORDERED: CLOMIPRAMINE 25 MG PO SCH (21:00)
[2021-07-09] MEDS ORDERED: LATUDA 60 MG PO SCH (21:00)
[2021-07-09] MEDS ORDERED: toPIRamate 100 MG (TOPAMAX) TAB PO SCH (21:00)
[2021-07-09] MEDS ORDERED: GUANFACINE 3 MG PO SCH (21:00)
[2021-07-10 00:14] VITALS: BP 152/83
[2021-07-10 07:58] LABS: BASOPHILS # (AUTO) 0.1 10^3/uL (0.0-0.1); BASOPHILS % (AUTO) 1 % (0-10); EOSINOPHILS # (AUTO) 0.1 10^3/uL (0.0-0.3); EOSINOPHILS % (AUTO) 1 % (0-10); HEMATOCRIT 41 % (40-54); HEMOGLOBIN 13.9 g/dL (13.3-17.7); LYMPHOCYTES # (AUTO) 4.3 10^3/uL (1.0-4.0); LYMPHOCYTES % (AUTO) 41 % (12-44); MEAN CORPUSCULAR HEMOGLOBIN 28 pg (25-34); MEAN CORPUSCULAR HGB CONC 34 g/dL (32-36); MEAN CORPUSCULAR VOLUME 84 fL (80-99); MEAN PLATELET VOLUME 12.7 fL (9.0-12.2); MONOCYTES # (AUTO) 0.7 10^3/uL (0.0-1.0); MONOCYTES % (AUTO) 7 % (0-12); NEUTROPHILS % (AUTO) 49 % (42-75); PLATELET COUNT 156 10^3/uL (130-400); WHITE BLOOD COUNT 10.3 10^3/uL (4.3-11.0)
[2021-07-10 08:00] VITALS: BP 122/62
[2021-07-10] MEDS: cefTRIAXone 1,000 MG/SWFI 10 ML IV PUSH IV SCH ×2 (08:24)
[2021-07-10 08:32] LABS: CALCIUM 8.7 MG/DL (8.5-10.1); CREATININE SERUM 0.87 MG/DL (0.60-1.30); POTASSIUM 3.6 MMOL/L (3.6-5.0)
[2021-07-10] MEDS ORDERED: LISINOPRIL HCTZ PO SCH (09:00)
[2021-07-10] MEDS ORDERED: lisINopril 10 MG (PRINIVIL) TABLET PO SCH (09:00)
[2021-07-10] MEDS: LACTATED RINGERS 1,000 ML IV SCH (10:11)
--- NOTE | 2021-07-10 12:08 | Discharge Summary ---
Diagnosis/Chief Complaint Date of Admission Jul 08, 2021 at 18:26 Date of Discharge Discharge Diagnosis Problems/Diagnosis: (1) Pyelonephritis Assessment & Plan: - Continue IV antibiotics and IVFs, continue to push PO hydration Status: Acute (2) Sepsis Assessment & Plan: - HDS, signs of sepsis resovled this AM Qualifiers: Qualified Codes: A41.9 - Sepsis, unspecified organism Status: Acute (3) Nausea and vomiting Assessment & Plan: - Improving, advance as tolerated Qualifiers: Qualified Codes: R11.2 - Nausea with vomiting, unspecified Status: Acute (4) Hypertension Assessment & Plan: - Continue home meds Qualifiers: Qualified Codes: I10 - Essential (primary) hypertension Status: Chronic Chief Complaint/HPI Chief Complaint/HPI 26 yo M that presented with right flank pain. Patient started having fevers and chills with the flank pain. States that he had a previous episode in middle school of pyelonephritis and it is similar. He was also having N/V that has improved with fluids and he would like to try to eat today. Discharge Summary-Simple/Stand Consultations Discharge Physical Examination Allergies: Coded Allergies: oxcarbazepine (Unverified Allergy, Severe, RASH, 09/17/14) Vitals & I&Os Vital Sign - Last 12Hours Date Time Temp Pulse Resp B/P (MAP) Pulse Ox O2 Delivery O2 Flow Rate FiO2 07/10/21 08:00 36.0 91 18 122/62 (82) 97 Room Air Intake and Output 07/10/21 00:00 Intake Total 2520 ml Balance 2520 ml Hospital Course See final discharge diagnosis. Discharge Instructions to patient/family Please see electronic discharge instructions given to patient. Discharge Medications Reviewed and agree with Discharge Medication list on patient's Discharge Instruction sheet MERON CALDERÓN MD Jul 10, 2021 12:08
[2021-07-10] MEDS ORDERED: CEFD300C3 PO (12:10)
--- NOTE | 2021-07-10 12:11 | Discharge Summary ---
Discharge [facility] Reconcile Patient Problems Problems Reviewed?: Yes Discharge Medications New, Converted or Re-Newed RX: Transmitted to Pharmacy New Medications: Cefdinir (Cefdinir) 300 Mg Capsule 300 MG PO BID for 5 Days, #10 CAP Continued Medications: Aspirin (Aspirin) 81 Mg Tab.chew 81 MG PO HS, TAB Clomipramine HCl (Clomipramine HCl) 25 Mg Capsule 25 MG PO HS Guanfacine HCl (Guanfacine HCl ER) 3 Mg Tab.er.24h 3 MG PO HS [Latuda] () 60 TAB 60 MG PO HS, TAB Lisinopril/Hydrochlorothiazide (Lisinopril-Hctz 10-12.5 mg Tab) 1 Each Tablet 1 EA PO DAILY, TAB Sennosides (Senna) 8.6 Mg Tablet 8.6 MG PO HS, TAB Topiramate (Topiramate) 200 Mg Tablet 200 MG PO HS Patient Instructions Goal/Follow Up Appt: F.u with PCP 1-2 weeks Activity & Diet Discharge Diet: Cardiac Diet Activity as Tolerated: Yes MERON CALDERÓN MD Jul 10, 2021 12:11
[2021-07-10 12:35] VITALS: BP 122/62
== END 2021-07-10 12:34 | disposition home or self-care (01) | DRG 872 ==
LOC: EDUNIT# 16:32 → ER 16:34 → 4TH 18:26
PROVIDERS: ADMIT Family Medicine; ATTEND Family Medicine
DX: A41.9 Sepsis, unspecified organism (principal); N10 Acute pyelonephritis; F84.0 Autistic disorder; Z68.42 Body mass index [BMI] 45.0-49.9, adult; I10 Essential (primary) hypertension; E66.9 Obesity, unspecified; Z79.82 Long term (current) use of aspirin; Z79.899 Other long term (current) drug therapy; Z88.8 Allergy status to other drugs, medicaments and biological substances
CPT/HCPCS: 36415; 74176; 80048; 80053; 81000; 83605; 83690; 84145; 85007; 85025; 85027; 87040; 87088

== ENCOUNTER 2021-07-29 18:13 | Emergency (ER) | payer MEDICARE, MEDICAID ==
[~2021-07-29] VITALS: Ht 180 cm; Wt 155.6 kg
[~2021-07-29 18:13] MED LIST changes: +LATUDA PO; +LISI1TAB44 PO; +SENN-234 PO
[2021-07-29] MEDS ORDERED: LACTATED RINGERS 1,000 ML IV ONE (18:30)
[2021-07-29 19:12] LABS: BILIRUBIN,URINE NEGATIVE (NEGATIVE); CLARITY,URINE CLEAR; COLOR,URINE YELLOW; GLUCOSE, URINE (UA) NEGATIVE (NEGATIVE); KETONES,URINE NEGATIVE (NEGATIVE); LEUKOCYTE ESTERASE ,URINE NEGATIVE (NEGATIVE); NITRITE,URINE NEGATIVE (NEGATIVE); PROTEIN,URINE NEGATIVE (NEGATIVE)
[2021-07-29 19:19] LABS: BACTERIA,URINE NEGATIVE /HPF; RBC,URINE 0-2 /HPF; SQUAMOUS EPITHELIAL CELL,UR 0-2 /HPF; WBC,URINE 0-2 /HPF
[2021-07-29] MEDS ORDERED: ONDANSETRON 4 MG/2 ML (SDV) Z0FRAN IVP ONE (19:30)
--- NOTE | 2021-07-29 19:35 | ED Abdominal Pain ---
General Stated Complaint: ABD PAIN, N/V/D, DARK COLORED URINE Source of Information: Patient, Caregiver Exam Limitations: No Limitations (SURJIT MULLIGAN) History of Present Illness Date Seen by Provider: Jul 29, 2021 Time Seen by Provider: 19:32 Initial Comments Patient is a 26-year-old male who presents ED with mother for abdominal pain. Patient reports crampy lower abdominal discomfort since this past Thursday. Intermittent vomiting with associated diarrhea. Mother reports odor. Recently finished cefdinir for work kidney infection. According to mother patient was admitted for pyelonephritis. History of cholecystectomy. Patient reports dark urine today. Reports painful with urination. Denies chest pain, shortness of breath, headache, dizziness. Up-to-date on his Covid vaccines and booster. Patient does have a history of autism. Mother states patient has felt warm at home with subjective fever. (SURJIT MULLIGAN) Allergies and Home Medications Allergies Coded Allergies: oxcarbazepine (Unverified Allergy, Severe, RASH, 09/17/14) Patient Home Medication List Home Medication List Reviewed: Yes (SUJRIT MULLIGAN) Aspirin (Aspirin) 81 Mg Tab.chew, 81 MG PO HS, (Reported) Entered as Reported by: AMANDEEP LAZO on 02/21/21 0909 Cefdinir (Cefdinir) 300 Mg Capsule, 300 MG PO BID Prescribed by: MERON CALDERÓN on 07/10/21 1210 Cefdinir (Cefdinir) 300 Mg Capsule, 300 MG PO BID Prescribed by: CHANA SHAIKH on 07/29/21 2243 Clomipramine HCl (Clomipramine HCl) 25 Mg Capsule, 25 MG PO HS, (Reported) Entered as Reported by: TU KRISHNAN on 09/17/16 0954 Guanfacine HCl (Guanfacine HCl ER) 3 Mg Tab.er.24h, 3 MG PO HS, (Reported) Entered as Reported by: TU KRISHNAN on 09/17/16 0954 Lisinopril/Hydrochlorothiazide (Lisinopril-Hctz 10-12.5 mg Tab) 1 Each Tablet, 1 EA PO DAILY, (Reported) Entered as Reported by: RHETT LERMA on 07/09/21 1024 Promethazine HCl (Promethazine Tablet) 25 Mg Tablet, 25 MG PO Q6H PRN for NAUSEA/VOMITING Prescribed by: CHANA SHAIKH on 07/29/21 2234 Sennosides (Senna) 8.6 Mg Tablet, 8.6 MG PO HS, (Reported) Entered as Reported by: RHETT LERMA on 07/09/21 1024 Topiramate (Topiramate) 200 Mg Tablet, 200 MG PO HS, (Reported) Entered as Reported by: TU KRISHNAN on 09/17/16 0954 [Latuda] 60 TAB, 60 MG PO HS, (Reported) Entered as Reported by: RHETT LERMA on 07/09/21 1024 Review of Systems Review of Systems Constitutional: fever EENTM: No Blurred Vision, No Eye Tearing, No Ear Drainage Gastrointestinal: Abdominal Pain, Diarrhea, Vomiting Genitourinary: Burning, Pain Musculoskeletal: No back pain, No joint pain, No joint swelling Skin: No change in color, No change in hair/nails Psychiatric/Neurological: Denies Anxiety, Denies Depressed (SURJIT MULLIGAN) All Other Systems Reviewed Negative Unless Noted: Yes (SURJIT MULLIGAN) Past Qfzscxb-Dfijft-Jlakwg Hx Immunizations Up To Date Tetanus Booster (TDap): Unknown PED Vaccines UTD: No First/Initial COVID19 Vaccinat: OCTOBER Second COVID19 Vaccination Arnoldo: NOVEMBER (SURJIT MULLIGAN) Seasonal Allergies Seasonal Allergies: No (SURJIT MULLIGAN) Past Medical History Surgeries: Yes (bmt) Ear Surgery Respiratory: No Cardiac: No Neurological: Yes (AUTISTIC) Developmental Disorder Reproductive Disorders: No Sexually Transmitted Disease: No Genitourinary: No Gastrointestinal: Yes (non-alcholic fatty liver) Gall Bladder Disease Musculoskeletal: No Endocrine: No HEENT: No Chronic Ear Infection Cancer: No Psychosocial: Yes (AUTISM) Integumentary: No Blood Disorders: No Adverse Reaction/Blood Tranf: No (SURJIT MULLIGAN) Family Medical History AIDS 19 FATHER Asthma G8 BROTHER Myocardial infarction 19 FATHER Physical Exam Vital Signs Vital Signs - First Documented 07/29/21 18:59 Temp 36.4 Pulse 94 Resp 22 B/P (MAP) 129/105 (113) Pulse Ox 99 O2 Delivery Room Air (JOSUÉ VAZQUEZ MD) Vital Signs Capillary Refill : (SURJIT MULLIGAN) Height/Weight/BMI Height: 5'10.00" Weight: 339lbs. 7.0oz. 153.586663fh; 47.83 BMI Method:Stated General Appearance: WD/WN, no apparent distress HEENT: PERRL/EOMI, normal ENT inspection, TMs normal, pharynx normal Neck: non-tender, full range of motion, supple Respiratory: chest non-tender, lungs clear, normal breath sounds, no respiratory distress Cardiovascular: regular rate, rhythm, no edema, no gallop, no JVD Gastrointestinal: normal bowel sounds, soft, no organomegaly, no pulsatile mass, tenderness (Mid to lower abdominal tenderness on palpation.) Extremities: normal range of motion, non-tender, normal inspection, no pedal edema Back: normal inspection, no CVA tenderness 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, no motor/sensory deficits, alert, normal mood/affect, oriented x 3 (SURJIT MULLIGAN) Progress/Results/Core Measures Results/Orders Lab Results Laboratory Tests Test 07/29/21 19:06 07/29/21 20:43 Range/Units Urine Color YELLOW Urine Clarity CLEAR Urine pH 6.0 5-9 Urine Specific [place] <=1.005 1.016-1.022 Urine Protein NEGATIVE NEGATIVE Urine Glucose (UA) NEGATIVE NEGATIVE Urine Ketones NEGATIVE NEGATIVE Urine Nitrite NEGATIVE NEGATIVE Urine Bilirubin NEGATIVE NEGATIVE Urine Urobilinogen 0.2 < = 1.0 MG/DL Urine Leukocyte Esterase NEGATIVE NEGATIVE Urine RBC (Auto) NEGATIVE NEGATIVE Urine RBC 0-2 /HPF Urine WBC 0-2 /HPF Urine Squamous Epithelial Cells 0-2 /HPF Urine Renal Epithelial Cells NONE /HPF Urine Crystals NONE /LPF Urine Bacteria NEGATIVE /HPF Urine Casts NONE /LPF Urine Mucus NEGATIVE /LPF Urine Culture Indicated NO White Blood Count 19.1 H 4.3-11.0 10^3/uL Red Blood Count 5.81 H 4.30-5.52 10^6/uL Hemoglobin 16.4 13.3-17.7 g/dL Hematocrit 47 40-54 % Mean Corpuscular Volume 81 80-99 fL Mean Corpuscular Hemoglobin 28 25-34 pg Mean Corpuscular Hemoglobin Concent 35 32-36 g/dL Red Cell Distribution Width 12.5 10.0-14.5 % Platelet Count 397 130-400 10^3/uL Mean Platelet Volume 10.6 9.0-12.2 fL Immature Granulocyte % (Auto) 1 % Neutrophils (%) (Auto) 54 42-75 % Lymphocytes (%) (Auto) 38 12-44 % Monocytes (%) (Auto) 5 0-12 % Eosinophils (%) (Auto) 1 0-10 % Basophils (%) (Auto) 1 0-10 % Neutrophils # (Auto) 10.3 H 1.8-7.8 10^3/uL Lymphocytes # (Auto) 7.3 H 1.0-4.0 10^3/uL Monocytes # (Auto) 1.0 0.0-1.0 10^3/uL Eosinophils # (Auto) 0.1 0.0-0.3 10^3/uL Basophils # (Auto) 0.2 H 0.0-0.1 10^3/uL Immature Granulocyte # (Auto) 0.2 H 0.0-0.1 10^3/uL Neutrophils % (Manual) 50 % Lymphocytes % (Manual) 44 % Monocytes % (Manual) 6 % Blood Morphology Comment NORMAL Sodium Level 136 135-145 MMOL/L Potassium Level 3.1 L 3.6-5.0 MMOL/L Chloride Level 99 98-107 MMOL/L Carbon Dioxide Level 24 21-32 MMOL/L Anion Gap 13 5-14 MMOL/L Blood Urea Nitrogen 8 7-18 MG/DL Creatinine 1.02 0.60-1.30 MG/DL Estimat Glomerular Filtration Rate 88 BUN/Creatinine Ratio 8 Glucose Level 96 70-105 MG/DL Calcium Level 9.6 8.5-10.1 MG/DL Corrected Calcium 8.5-10.1 MG/DL Total Bilirubin 0.5 0.1-1.0 MG/DL Aspartate Amino Transf (AST/SGOT) 23 5-34 U/L Alanine Aminotransferase (ALT/SGPT) 71 H 0-55 U/L Alkaline Phosphatase 84 40-136 U/L Total Protein 7.8 6.4-8.2 GM/DL Albumin 4.7 H 3.2-4.5 GM/DL Lipase 17 8-78 U/L (JOSUÉ VAZQUEZ MD) My Orders Orders - JOSUÉ VAZQUEZ MD Cbc With Automated Diff (07/29/21 18:16) Comprehensive Metabolic Panel (07/29/21 18:16) Lipase (07/29/21 18:16) Ua Culture If Indicated (07/29/21 18:16) Ed Iv/Invasive Line Start (07/29/21 18:16) Lactated Ringers (Lr 1000 Ml Iv Solution (07/29/21 18:30) Manual Differential (07/29/21 20:43) (JOSUÉ VAZQUEZ MD) Medications Given in ED Current Medications Medications Dose Ordered Sig/Patricia Route Start Time Stop Time Status Last Admin Dose Admin Lactated Ringer's 1,000 ml @ 0 mls/hr Q0M ONCE IV 07/29/21 18:30 07/29/21 18:31 DC 07/29/21 20:45 0 MLS/HR Ondansetron HCl 4 mg ONCE ONCE IVP 07/29/21 19:30 07/29/21 21:19 DC 07/29/21 20:49 4 MG (JOSUÉ VAZQUEZ MD) Vital Signs/I&O 07/29/21 07/29/21 18:59 22:45 Temp 36.4 Pulse 94 80 Resp 22 22 B/P (MAP) 129/105 (113) 144/90 Pulse Ox 99 96 O2 Delivery Room Air Room Air (JOSUÉ VAZQUEZ MD) Departure Communication (Admissions) Patient with vomiting and diarrhea. Patient was recently admitted from her facility earlier this month for similar type symptoms. Patient vital signs stable. Elevated white blood count of 19. Patient previous visit was near 22. Patient CT abdomen pelvis was unremarkable. Lab work was otherwise unremarkable besides a potassium 3.1. Urinalysis negative for infection or blood. Patient tolerating p.o. fluids. Recommend electrolytes. Recommend continue monitoring symptoms at home. Follow-up with PCP in 2 to 3 days for reevaluation. Recommend electrolytes. Will discharge with nausea medication. Mother states patient was diagnosed with possible kidney infection and improved with cefdinir. She is requesting similar medication. Patient does report urinary symptoms. Did attempt to try to get a stool sample here for infectious etiology. Patient was not able to provide stool sample. Patient did not vomit here. Patient without any peritoneal signs. Return precautions were discussed with family. (SURJIT MULLIGAN) Impression Primary Impression: Abdominal pain Disposition: 01 HOME, SELF-CARE Condition: Stable Departure-Patient Inst. Decision time for Depature: 22:33 (SURJIT MULLIGAN) Referrals: [facility] (PCP) Primary Care Physician RHETT DUFF DO (Family) Primary Care Physician Patient Instructions: Abdominal Pain, Adult ED Scripts Cefdinir (Cefdinir) 300 Mg Capsule 300 MG PO BID for 7 Days, #14 CAP Prov: SURJIT MULLIGAN 07/29/21 Promethazine HCl (Promethazine Tablet) 25 Mg Tablet 25 MG PO Q6H PRN for NAUSEA/VOMITING for 7 Days, #14 TAB Prov: SURJIT MULLIGAN 07/29/21 ATTENDING PHYSICIAN NOTE: I was physically present as attending physician in the emergency department during the care of this patient, but I was not directly involved in the decision making or delivery of care for this patient. (JOSUÉ VAZQUEZ MD) SURJIT MULLIGAN Jul 29, 2021 19:35 JOSUÉ VAZQUEZ MD Jul 30, 2021 05:56
[2021-07-29 20:55] LABS: BASOPHILS # (AUTO) 0.2 10^3/uL (0.0-0.1); BASOPHILS % (AUTO) 1 % (0-10); EOSINOPHILS # (AUTO) 0.1 10^3/uL (0.0-0.3); EOSINOPHILS % (AUTO) 1 % (0-10); HEMATOCRIT 47 % (40-54); HEMOGLOBIN 16.4 g/dL (13.3-17.7); LYMPHOCYTES # (AUTO) 7.3 10^3/uL (1.0-4.0); LYMPHOCYTES % (AUTO) 38 % (12-44); MEAN CORPUSCULAR HEMOGLOBIN 28 pg (25-34); MEAN CORPUSCULAR HGB CONC 35 g/dL (32-36); MEAN CORPUSCULAR VOLUME 81 fL (80-99); MEAN PLATELET VOLUME 10.6 fL (9.0-12.2); MONOCYTES % (AUTO) 5 % (0-12); NEUTROPHILS # (AUTO) 10.3 10^3/uL (1.8-7.8); NEUTROPHILS % (AUTO) 54 % (42-75); PLATELET COUNT 397 10^3/uL (130-400); WHITE BLOOD COUNT 19.1 10^3/uL (4.3-11.0)
[2021-07-29 21:12] LABS: ALBUMIN 4.7 GM/DL (3.2-4.5); CHLORIDE 99 MMOL/L (98-107); POTASSIUM 3.1 MMOL/L (3.6-5.0); SODIUM 136 MMOL/L (135-145)
[2021-07-29 21:13] LABS: CALCIUM 9.6 MG/DL (8.5-10.1)
[2021-07-29 21:15] LABS: GLUCOSE 96 MG/DL (70-105); TOTAL PROTEIN 7.8 GM/DL (6.4-8.2)
[2021-07-29 21:16] LABS: CARBON DIOXIDE 24 MMOL/L (21-32)
[2021-07-29 21:17] LABS: BILIRUBIN,TOTAL 0.5 MG/DL (0.1-1.0); LYMPHOCYTES % (MANUAL) 44 %; MONOCYTES % (MANUAL) 6 %; NEUTROPHILS % (MANUAL) 50 %; RBC MORPH NORMAL
[2021-07-29 21:18] LABS: ALKALINE PHOSPHATASE 84 U/L (40-136); CREATININE SERUM 1.02 MG/DL (0.60-1.30); GFR ESTIMATED 88
[2021-07-29 21:19] LABS: BUN/CREATININE RATIO 8
[2021-07-29 21:21] LABS: ALANINE AMINOTRANSFERASE 71 U/L (0-55)
[2021-07-29 21:22] LABS: LIPASE 17 U/L (8-78)
--- NOTE | 2021-07-29 22:15 | Diagnostic Imaging Report ---
PROCEDURE: CT abdomen and pelvis with contrast. TECHNIQUE: Multiple contiguous axial images were obtained through the abdomen and pelvis after administration of intravenous contrast. Auto Exposure Controls were utilized during the CT exam to meet ALARA standards for radiation dose reduction. All CT scans use one or more of the following dose optimizing techniques: automated exposure control, MA and/or KvP adjustment based on patient size and exam type or iterative reconstruction. INDICATION: Right lower quadrant abdominal pain. FINDINGS: The lung bases are clear. The liver appears normal. Gallbladder is surgically absent. The pancreas is normal. The spleen is not enlarged. Adrenals are normal. Kidneys appear normal. Small bowel is unremarkable. There is no evidence of appendicitis. Colon appears normal. Urinary bladder is normal. There is no intraperitoneal free air or free fluid. IMPRESSION: Unremarkable CT abdomen and pelvis. Dictated by: Dictated on workstation # [id number]
[2021-07-29] MEDS ORDERED: PROM25TA14 PO (22:34)
[2021-07-29] MEDS ORDERED: CEFD300C3 PO (22:43)
[2021-07-29 22:45] VITALS: BP 144/90
== END 2021-07-29 22:45 | disposition home or self-care (01) ==
LOC: EDUNIT# 18:13 → ER 18:14
DX: R10.30 Lower abdominal pain, unspecified (principal); F84.0 Autistic disorder; Z90.49 Acquired absence of other specified parts of digestive tract; Z79.82 Long term (current) use of aspirin; Z79.899 Other long term (current) drug therapy
CPT/HCPCS: 36415; 74177; 80053; 81000; 83690; 85007; 85027; 96361; 96374

== ENCOUNTER 2021-08-13 18:44 | Emergency (ER) | payer MEDICARE, MEDICAID ==
[~2021-08-13] VITALS: Ht 180 cm; Wt 156.0 kg
[2021-08-13] MEDS ORDERED: ONDANSETRON 4 MG/2 ML (SDV) Z0FRAN IVP ONE (19:15)
[2021-08-13] MEDS ORDERED: LACTATED RINGERS 1,000 ML IV ONE (19:15)
[2021-08-13 19:18] LABS: BILIRUBIN,URINE NEGATIVE (NEGATIVE); CLARITY,URINE CLEAR; COLOR,URINE YELLOW; GLUCOSE, URINE (UA) NEGATIVE (NEGATIVE); KETONES,URINE NEGATIVE (NEGATIVE); LEUKOCYTE ESTERASE ,URINE TRACE (NEGATIVE); NITRITE,URINE NEGATIVE (NEGATIVE); PROTEIN,URINE NEGATIVE (NEGATIVE)
[2021-08-13 19:31] LABS: BACTERIA,URINE NEGATIVE /HPF; SQUAMOUS EPITHELIAL CELL,UR RARE /HPF
[2021-08-13 19:35] LABS: BASOPHILS # (AUTO) 0.1 10^3/uL (0.0-0.1); BASOPHILS % (AUTO) 1 % (0-10); EOSINOPHILS # (AUTO) 0.1 10^3/uL (0.0-0.3); EOSINOPHILS % (AUTO) 1 % (0-10); HEMATOCRIT 44 % (40-54); LYMPHOCYTES # (AUTO) 5.2 10^3/uL (1.0-4.0); LYMPHOCYTES % (AUTO) 30 % (12-44); MEAN CORPUSCULAR HEMOGLOBIN 28 pg (25-34); MEAN CORPUSCULAR HGB CONC 34 g/dL (32-36); MEAN CORPUSCULAR VOLUME 83 fL (80-99); MEAN PLATELET VOLUME 10.6 fL (9.0-12.2); MONOCYTES % (AUTO) 6 % (0-12); NEUTROPHILS # (AUTO) 10.7 10^3/uL (1.8-7.8); NEUTROPHILS % (AUTO) 62 % (42-75); PLATELET COUNT 376 10^3/uL (130-400); WHITE BLOOD COUNT 17.4 10^3/uL (4.3-11.0)
--- NOTE | 2021-08-13 19:43 | ED Abdominal Pain ---
General Chief Complaint: Abdominal/GI Problems Stated Complaint: VOMITING / ABD PAIN/ BACK PAIN Nursing Triage Note: VOMITTING DAILY FOR "WEEKS" INTERMITTANT ABDOMINAL PAIN, SOFT/LOOSE STOOLS AFTER EATING. Source of Information: Patient (PT IS LIMITED HISTORIAN--MENTALLY CHALLENGED), Other (MOTHER GIVES MOST INFORMATION) History of Present Illness Date Seen by Provider: Aug 13, 2021 Time Seen by Provider: 19:08 Initial Comments PT ARRIVES VIA POV FROM HOME WITH MOM PT HAS HAD ONGOING ABDOMINAL PAIN AND FLANK PAIN, WITH NAUSEA/VOMITING/DIARRHEA FOR OVER 6 MONTHS PT HAD CHOLECYSTECTOMY 02/21/21, BUT SYMPTOMS PERSIST PT WAS ADMITTED HERE 07/08-07/10/21 FOR PYELONEPHRITIS WITH SEPSIS, AND DISMISSED ON CEFDINIR PT SEEN AGAIN IN ER 07/29/21 FOR SAME COMPLAINTS, GIVEN ANOTHER RX FOR CEFDINIR AND PHENERGAN TABLETS PT FOLLOWED UP WITH [facility] ON 08/05/21. HAD LAB DONE, NO ADDITIONAL PRESCRIPTIONS OR TESTS PT HAS BEEN VOMITING ONCE A DAY EVERY DAY SINCE Thursday08/08/21 HAS ZOFRAN AND PHENERGAN AT HOME, BUT HAS NOT TAKEN ANY BEGAN HAVING DIFFUSE UPPER ABDOMINAL PAIN AND RIGHT FLANK PAIN AGAIN YESTERDAY HAD LOOSE STOOL X 1 TODAY SYMPTOMS MUCH WORSE AFTER EATING DOES HAVE SOME PAIN ON URINATION AND STATES HE HAS TO STRAIN TO URINATE. NO FEVER HAS NOT TAKEN ANYTHING FOR PAIN [facility] Allergies and Home Medications Allergies Coded Allergies: oxcarbazepine (Unverified Allergy, Severe, RASH, 09/17/14) Patient Home Medication List Home Medication List Reviewed: Yes Aspirin (Aspirin) 81 Mg Tab.chew, 81 MG PO HS, (Reported) Entered as Reported by: AMANDEEP LAZO on 02/21/21 0909 Cefdinir (Cefdinir) 300 Mg Capsule, 300 MG PO BID Prescribed by: MERON CALDERÓN on 07/10/21 1210 Cefdinir (Cefdinir) 300 Mg Capsule, 300 MG PO BID Prescribed by: CHANA SHAIKH on 07/29/21 2243 Clomipramine HCl (Clomipramine HCl) 25 Mg Capsule, 25 MG PO HS, (Reported) Entered as Reported by: TU KRISHNAN on 09/17/16 0954 Guanfacine HCl (Guanfacine HCl ER) 3 Mg Tab.er.24h, 3 MG PO HS, (Reported) Entered as Reported by: TU KRISHNAN on 09/17/16 0954 Lisinopril/Hydrochlorothiazide (Lisinopril-Hctz 10-12.5 mg Tab) 1 Each Tablet, 1 EA PO DAILY, (Reported) Entered as Reported by: RHETT LERMA on 07/09/21 1024 Pantoprazole Sodium (Protonix) 40 Mg Tablet.dr, 40 MG PO DAILY Prescribed by: RANDY BANERJEE on 08/13/212131 Promethazine HCl (Promethazine Tablet) 25 Mg Tablet, 25 MG PO Q6H PRN for NAUSEA/VOMITING Prescribed by: CHANA SHAIKH on 07/29/21 2234 Sennosides (Senna) 8.6 Mg Tablet, 8.6 MG PO HS, (Reported) Entered as Reported by: RHETT LERMA on 07/09/21 1024 Sucralfate (Carafate) 1 Gm Tablet, 1 GM PO QID Prescribed by: RANDY BANERJEE on 08/13/21 213 Topiramate (Topiramate) 200 Mg Tablet, 200 MG PO HS, (Reported) Entered as Reported by: TU KRISHNAN on 09/17/16 0954 [Latuda] 60 TAB, 60 MG PO HS, (Reported) Entered as Reported by: RHETT LERMA on 07/09/21 1024 Review of Systems Review of Systems Constitutional: no symptoms reported Respiratory: No Symptoms Reported Cardiovascular: No Symptoms Reported Gastrointestinal: See HPI, Abdominal Pain, Diarrhea, Nausea, Vomiting Genitourinary: See HPI, Burning, Flank Pain Musculoskeletal: see HPI, back pain Skin: no symptoms reported Psychiatric/Neurological: No Symptoms Reported Endocrine: No Symptoms Reported Hematologic/Lymphatic: No Symptoms Reported Past Crivsgp-Intblt-Becifm Hx Patient Social History Tobacco Use?: No Substance use?: No Alcohol Use?: No Pt feels they are or have been: No Immunizations Up To Date Tetanus Booster (TDap): Unknown PED Vaccines UTD: No First/Initial COVID19 Vaccinat: OCTOBER 2020 Second COVID19 Vaccination Arnoldo: NOVEMBER 2020 Third COVID19 Vaccination Date: JULY 2021 COVID19 Vaccine Medical Billing Manager: [employer] Seasonal Allergies Seasonal Allergies: No Past Medical History Surgery/Hospitalization HX: SX: GALLBLADDER 02/21/[address] IBRAHIM [facility]: AUTISM, HTN, MALAVE, UTI, PYLONEPHRITIS Surgeries: Yes (BMT'S) Ear Surgery, Gallbladder Respiratory: No Cardiac: Yes Hypertension Neurological: Yes (AUTISTIC) Developmental Disorder Reproductive Disorders: No Sexually Transmitted Disease: No Genitourinary: Yes Bladder Infection Gastrointestinal: Yes (non-alcholic fatty liver; CHOLECYSTECTOMY 02/21/21) Liver Disease/Jaundice, Gall Bladder Disease Musculoskeletal: No Endocrine: Yes (OBESITY) HEENT: Yes (S/P BMT'S) Chronic Ear Infection Cancer: No Psychosocial: Yes (AUTISM) Integumentary: No Blood Disorders: No Adverse Reaction/Blood Tranf: No Family Medical History AIDS 19 FATHER Asthma G8 BROTHER Myocardial infarction 19 FATHER Physical Exam Vital Signs Vital Signs - First Documented 08/13/21 19:04 Temp 36.6 Pulse 108 Resp 18 B/P (MAP) 131/86 (101) Pulse Ox 99 O2 Delivery Room Air Capillary Refill : Less Than 3 Seconds Height/Weight/BMI Height: 5'10.00" Weight: 339lbs. 7.0oz. 153.476469uy; 48.00 BMI Method:Stated General Appearance: WD/WN, no apparent distress, obese, other (DOES NOT APPEAR TO BE IN ANY DISCOMFORT OR DISTRESS) Respiratory: normal breath sounds, no respiratory distress, no accessory muscle use Cardiovascular: regular rate, rhythm, no murmur Gastrointestinal: soft; No distended, No guarding, No rebound; tenderness (DIFFUSE TENDERNESS) Extremities: normal inspection Back: CVA tenderness (R) Neurologic/Psychiatric: no motor/sensory deficits, alert, normal mood/affect, oriented x 3, other (APPEARS MENTALLY CHALLENGED) Skin: normal color, warm/dry; No rash Focused Exam Lactate Level 08/13/21 20:06: Lactic Acid Level 1.31 Lactic Acid Level Laboratory Tests Test 08/13/21 20:06 Lactic Acid Level 1.31 MMOL/L (0.50-2.00) Progress/Results/Core Measures Results/Orders Lab Results Laboratory Tests Test 08/13/21 19:10 08/13/21 19:21 08/13/21 20:06 Range/Units Urine Color YELLOW Urine Clarity CLEAR Urine pH 7.0 5-9 Urine Specific [place] <=1.005 1.016-1.022 Urine Protein NEGATIVE NEGATIVE Urine Glucose (UA) NEGATIVE NEGATIVE Urine Ketones NEGATIVE NEGATIVE Urine Nitrite NEGATIVE NEGATIVE Urine Bilirubin NEGATIVE NEGATIVE Urine Urobilinogen 0.2 < = 1.0 MG/DL Urine Leukocyte Esterase TRACE H NEGATIVE Urine RBC (Auto) NEGATIVE NEGATIVE Urine RBC NONE /HPF Urine WBC NONE /HPF Urine Squamous Epithelial Cells RARE /HPF Urine Crystals NONE /LPF Urine Bacteria NEGATIVE /HPF Urine Casts NONE /LPF Urine Mucus NEGATIVE /LPF Urine Culture Indicated NO White Blood Count 17.4 H 4.3-11.0 10^3/uL Red Blood Count 5.35 4.30-5.52 10^6/uL Hemoglobin 15.0 13.3-17.7 g/dL Hematocrit 44 40-54 % Mean Corpuscular Volume 83 80-99 fL Mean Corpuscular Hemoglobin 28 25-34 pg Mean Corpuscular Hemoglobin Concent 34 32-36 g/dL Red Cell Distribution Width 12.9 10.0-14.5 % Platelet Count 376 130-400 10^3/uL Mean Platelet Volume 10.6 9.0-12.2 fL Immature Granulocyte % (Auto) 2 % Neutrophils (%) (Auto) 62 42-75 % Lymphocytes (%) (Auto) 30 12-44 % Monocytes (%) (Auto) 6 0-12 % Eosinophils (%) (Auto) 1 0-10 % Basophils (%) (Auto) 1 0-10 % Neutrophils # (Auto) 10.7 H 1.8-7.8 10^3/uL Lymphocytes # (Auto) 5.2 H 1.0-4.0 10^3/uL Monocytes # (Auto) 1.0 0.0-1.0 10^3/uL Eosinophils # (Auto) 0.1 0.0-0.3 10^3/uL Basophils # (Auto) 0.1 0.0-0.1 10^3/uL Immature Granulocyte # (Auto) 0.3 H 0.0-0.1 10^3/uL Neutrophils % (Manual) 62 % Lymphocytes % (Manual) 32 % Monocytes % (Manual) 5 % Eosinophils % (Manual) 1 % Blood Morphology Comment NORMAL Erythrocyte Sedimentation Rate 17 H 0-15 MM/HR Sodium Level 136 135-145 MMOL/L Potassium Level 3.2 L 3.6-5.0 MMOL/L Chloride Level 102 98-107 MMOL/L Carbon Dioxide Level 23 21-32 MMOL/L Anion Gap 11 5-14 MMOL/L Blood Urea Nitrogen 9 7-18 MG/DL Creatinine 0.99 0.60-1.30 MG/DL Estimat Glomerular Filtration Rate 91 BUN/Creatinine Ratio 9 Glucose Level 113 H 70-105 MG/DL Calcium Level 9.5 8.5-10.1 MG/DL Corrected Calcium 9.2 8.5-10.1 MG/DL Total Bilirubin 0.4 0.1-1.0 MG/DL Aspartate Amino Transf (AST/SGOT) 23 5-34 U/L Alanine Aminotransferase (ALT/SGPT) 61 H 0-55 U/L Alkaline Phosphatase 88 40-136 U/L C-Reactive Protein High Sensitivity 1.10 H 0.00-0.50 MG/DL Total Protein 7.5 6.4-8.2 GM/DL Albumin 4.4 3.2-4.5 GM/DL Amylase Level 43 25-125 U/L Lipase 15 8-78 U/L Procalcitonin 0.05 <0.10 NG/ML Monoscreen NEGATIVE NEGATIVE Lactic Acid Level 1.31 0.50-2.00 MMOL/L My Orders Orders - RANDY BANERJEE DO Ed Iv/Invasive Line Start (08/13/21 19:10) Monitor-Rhythm Ecg Trace Only (08/13/21 19:10) Amylase (08/13/21 19:10) Cbc With Automated Diff (08/13/21 19:10) Comprehensive Metabolic Panel (08/13/21 19:10) Hs C Reactive Protein (08/13/21 19:10) Lipase (08/13/21 19:10) Erythrocyte Sedimentation Rate (08/13/21 19:10) Ed Iv/Invasive Line Start (08/13/21 19:10) Lactated Ringers (Lr 1000 Ml Iv Solution (08/13/21 19:15) Ondansetron Injection (Zofran Injectio (08/13/21 19:15) Manual Differential (08/13/21 19:21) Blood Culture (08/13/21 19:57) Urine Culture (08/13/21 19:57) Vital Signs Adult Sepsis Patie Q15M (08/13/21 19:57) Remove Rings In Anticipation O (08/13/21 19:57) Lactic Acid Analyzer (08/13/21 19:57) Procalcitonin (Pct) (08/13/21 19:57) Ct Chest/Abdomen/Pelvis W (08/13/21 19:58) Iohexol Injection (Omnipaque 350 Mg/Ml 1 (08/13/21 20:15) Received Contrast (Hold Metformin- Contr (08/13/21 20:15) Ns (Ivpb) (Sodium Chloride 0.9% Ivpb Bag (08/13/21 20:15) Promethazine Injection (Phenergan Injec (08/13/21 20:30) Monotest (08/13/21 21:17) Medications Given in ED Current Medications Medications Dose Ordered Sig/Patricia Route Start Time Stop Time Status Last Admin Dose Admin Iohexol 100 ml ONCE ONCE IV 08/13/21 20:15 08/13/21 20:16 DC 08/13/21 20:43 100 ML Lactated Ringer's 1,000 ml @ 0 mls/hr Q0M ONCE IV 08/13/21 19:15 08/13/21 19:16 DC 08/13/21 19:25 0 MLS/HR Ondansetron HCl 8 mg ONCE ONCE IVP 08/13/21 19:15 08/13/21 19:16 DC 08/13/21 19:25 8 MG Promethazine HCl 25 mg ONCE ONCE IVP 08/13/21 20:30 08/13/21 20:31 DC 08/13/21 20:37 25 MG Sodium Chloride 100 ml ONCE ONCE IV 08/13/21 20:15 08/13/21 20:16 DC 08/13/21 20:43 80 ML Vital Signs/I&O 08/13/21 08/13/21 19:04 21:37 Temp 36.6 36.5 Pulse 108 95 Resp 18 18 B/P (MAP) 131/86 (101) 126/77 Pulse Ox 99 97 O2 Delivery Room Air Room Air Blood Pressure Mean: 101 Progress Progress Note : Progress Note GIVEN IV FLUIDS AND ZOFRAN AND PHENERGAN NO FURTHER COMPLAINTS OF PAIN OR NAUSEA/VOMITING DURING ER STAY NO DETERIORATION IN PT'S CONDITION DURING ER STAY Diagnostic Imaging Comments CT CHEST/ABDOMEN/PELVIS--PER RADIOLOGIST REPORT AT 2117 CT CHEST FINDINGS: There are no enlarged mediastinal or hilar nodes. There are no enlarged axillary nodes or chest wall lesions. There is no pleural or pericardial fluid. Lung parenchymal windows show no focal infiltrates or masses. CT ABDOMEN PELVIS FINDINGS: The liver shows diffuse low-density changes compatible with fatty infiltration. There is no focal liver lesion. The patient has had previous cholecystectomy. The spleen is mildly enlarged measuring 15.5 cm. Adrenals and pancreas appear normal. The kidneys bilaterally appear normal. There is no retroperitoneal mass or adenopathy. There is no ascites or abnormal fluid question. Visualized bowel loops appear unremarkable. There is no pelvic mass or lymphadenopathy. Urinary bladder appears unremarkable. IMPRESSION: CT chest was unremarkable. CT abdomen and pelvis shows diffuse fatty infiltration of the liver and evidence of previous cholecystectomy. There is mild splenomegaly. There is no abdominal mass or abnormal fluid collection or sign of bowel obstruction. Reviewed: Reviewed by Me Departure Impression Primary Impression: Chronic upper abdominal pain Additional Impressions: Chronic right flank pain Leukocytosis Hepatic steatosis CHRONIC NAUSEA AND VOMITING Disposition: 01 HOME, SELF-CARE Condition: Stable Departure-Patient Inst. Decision time for Depature: 21:20 Referrals: KIM IBRAHIM CASEY V DO (PCP/Family) Primary Care Physician Patient Instructions: Abdominal Pain, Adult ED, Nausea and Vomiting, Adult, Nausea and Vomiting, Adult ED, Nonalcoholic Fatty Liver Disease (DC) Add. Discharge Instructions: CLEAR LIQUIDS--WATER, BROTH, JELLO, GATORADE BRATS DIET--BANANAS, RICE, APPLESAUCE, TOAST, SALTINES TYLENOL AND MOTRIN NEEDED FOR PAIN TAKE YOUR ZOFRAN AND PROMETHAZINE NEEDED FOR NAUSEA AND VOMITING FOLLOW UP WITH [facility] AND DR. IBRAHIM THIS WEEK FOR FURTHER CARE All discharge instructions reviewed with patient and/or family. Voiced understanding. Scripts Sucralfate (Carafate) 1 Gm Tablet 1 GM PO QID, #60 TAB Prov: RANDY BANERJEE DO 08/13/21 Pantoprazole Sodium (Protonix) 40 Mg Tablet. 40 MG PO DAILY, #15 TAB Prov: RANDY BANERJEE DO 08/13/21 RANDY BANERJEE DO Aug 13, 2021 19:43
[2021-08-13 19:59] LABS: ALBUMIN 4.4 GM/DL (3.2-4.5); ERYTHROCYTE SEDIMENTATION RATE 17 MM/HR (0-15); POTASSIUM 3.2 MMOL/L (3.6-5.0)
[2021-08-13 20:01] LABS: CALCIUM 9.5 MG/DL (8.5-10.1)
[2021-08-13 20:02] LABS: TOTAL PROTEIN 7.5 GM/DL (6.4-8.2)
[2021-08-13 20:04] LABS: BILIRUBIN,TOTAL 0.4 MG/DL (0.1-1.0)
[2021-08-13 20:06] LABS: CREATININE SERUM 0.99 MG/DL (0.60-1.30)
[2021-08-13 20:09] LABS: EOSINOPHILS % (MANUAL) 1 %; LYMPHOCYTES % (MANUAL) 32 %; MONOCYTES % (MANUAL) 5 %; NEUTROPHILS % (MANUAL) 62 %; RBC MORPH NORMAL
[2021-08-13] MEDS ORDERED: IOHEXOL 350 MG/ML 100 ML (OMNIPAQUE 350) VIAL IV ONE (20:15)
[2021-08-13] MEDS ORDERED: HOLD METFORMIN - RECEIVED CONTRAST 20 ML VIAL IV SCH (20:15)
[2021-08-13] MEDS ORDERED: NS 100 ML (IVPB) BAG IV ONE (20:15)
[2021-08-13] MEDS ORDERED: PROMETHAZINE INJ 25 MG/ML (PHENERGAN) AMP IVP ONE (20:30)
--- NOTE | 2021-08-13 21:11 | Diagnostic Imaging Report ---
INDICATION: Abdominal and flank pain and leukocytosis. TECHNIQUE: Multiple contiguous axial images were obtained through the chest, abdomen, and pelvis after the administration of intravenous contrast. Auto Exposure Controls were utilized during the CT exam to meet ALARA standards for radiation dose reduction. CT chest is compared with 12/30/2020. CT abdomen and pelvis compared to 07/29/2021 CT CHEST FINDINGS: There are no enlarged mediastinal or hilar nodes. There are no enlarged axillary nodes or chest wall lesions. There is no pleural or pericardial fluid. Lung parenchymal windows show no focal infiltrates or masses. CT ABDOMEN PELVIS FINDINGS: The liver shows diffuse low-density changes compatible with fatty infiltration. There is no focal liver lesion. The patient has had previous cholecystectomy. The spleen is mildly enlarged measuring 15.5 cm. Adrenals and pancreas appear normal. The kidneys bilaterally appear normal. There is no retroperitoneal mass or adenopathy. There is no ascites or abnormal fluid question. Visualized bowel loops appear unremarkable. There is no pelvic mass or lymphadenopathy. Urinary bladder appears unremarkable. IMPRESSION: CT chest was unremarkable. CT abdomen and pelvis shows diffuse fatty infiltration of the liver and evidence of previous cholecystectomy. There is mild splenomegaly. There is no abdominal mass or abnormal fluid collection or sign of bowel obstruction. Dictated by: Dictated on workstation # [id number]
[2021-08-13] MEDS ORDERED: SUCR1TAB36 PO (21:32)
[2021-08-13] MEDS ORDERED: PANT40TA2 PO (21:32)
[2021-08-13 21:37] VITALS: BP 126/77
== END 2021-08-13 21:40 | disposition home or self-care (01) ==
LOC: EDUNIT# 18:44 → ER 18:46
DX: G89.29 Other chronic pain (principal); R10.84 Generalized abdominal pain; D72.829 Elevated white blood cell count, unspecified; K76.0 Fatty (change of) liver, not elsewhere classified; R11.2 Nausea with vomiting, unspecified; E66.9 Obesity, unspecified; I10 Essential (primary) hypertension; F84.0 Autistic disorder; Z68.42 Body mass index [BMI] 45.0-49.9, adult; Z79.82 Long term (current) use of aspirin
CPT/HCPCS: 36415; 71260; 74177; 80053; 81000; 82150; 83605; 83690; 84145; 85007; 85027; 85652; 86141; 86308; 87040; 87077; 87088; 87186; 93041; 96361; 96374; 96375

== ENCOUNTER 2021-08-15 08:03 | Outpatient (CLI) | payer MEDICARE, MEDICAID ==
[~2021-08-15] VITALS: Ht 180.3 cm; Wt 150.3 kg
[~2021-08-15 08:03] MED LIST changes: +PANT40TA2 PO; +SUCR1TAB36 PO
== END 2021-08-15 14:17 ==
LOC: PREOP 08:03
PROVIDERS: ATTEND Surgery
DX: Z01.812 Encounter for preprocedural laboratory examination (principal); R11.2 Nausea with vomiting, unspecified; R53.1 Weakness; Z20.822 Contact with and (suspected) exposure to COVID-19
CPT/HCPCS: 87636

== ENCOUNTER 2021-08-16 11:37 | Day surgery (SDC) | payer MEDICARE, MEDICAID ==
[~2021-08-16] VITALS: Ht 180.3 cm; Wt 150.3 kg
[2021-08-16] VITALS (7 sets, daily range): BP systolic 106–120; BP diastolic 55–82
[2021-08-16] MEDS ORDERED: LACTATED RINGERS 1,000 ML IV ONE ×2 (11:48→14:02)
[2021-08-16] MEDS ORDERED: LACTATED RINGERS 1,000 ML IV STA (12:03)
[2021-08-16] MEDS ORDERED: HURRICAINE EXT TUBE (BENZOCAINE) XX PRN (12:15)
[2021-08-16] MEDS ORDERED: MIDAZOLAM 2 MG/2 ML (VERSED) VIAL ONE (13:54)
[2021-08-16] MEDS ORDERED: proPOfol 200 MG/20 ML (DIPRIVAN) VIAL IV ONE (13:54)
--- NOTE | 2021-08-16 14:15 | Progress Note-Pre Operative ---
Pre-Operative Progress Note H&P Reviewed The H&P was reviewed, patient examined and no changes noted. Date Seen by Provider: Aug 16, 2021 Time Seen by Provider: 13:50 Date H&P Reviewed: Aug 16, 2021 Time H&P Reviewed: 13:50 Pre-Operative Diagnosis: epigastric pain, n/v KIM IBRAHIM DO Aug 16, 2021 14:15
--- NOTE | 2021-08-16 14:16 | Progress Note-Post Operative ---
Post-Operative Progess Note Surgeon (s)/Trimming Department Blocker (s) Surgeon KIM IBRAHIM DO Trimming Department Blocker: na Pre-Operative Diagnosis epigastric pain, n/v Post-Operative Diagnosis small hiatal hernia, slight gastritis Procedure & Operative Findings Date of Procedure 08/16/21 Procedure Performed/Findings egd c biopsies Anesthesia Type per cafeteria counter attendant Estimated Blood Loss Estimated blood loss (mL): none Specimens/Packing Specimens Removed antrum, ge KIM IBRAHIM DO Aug 16, 2021 14:16
--- NOTE | 2021-08-16 14:17 | Discharge Inst-Simple/Standard ---
Discharge Inst-Standard Patient Instructions/Follow Up Plan of Care/Instructions/FU: 2 weeks leonarda Activity as Tolerated: Yes Discharge Diet: Regular Diet KIM IBRAHIM DO Aug 16, 2021 14:17
--- NOTE | 2021-08-16 14:41 | Anesthesia-General Post-Op ---
MAC Patient Condition Mental Status/LOC: Same as Preop Cardiovascular: Satisfactory Nausea/Vomiting: Absent Respiratory: Satisfactory Pain: Controlled Complications: Absent Post Op Complications Complications None Follow Up Care/Instructions Patient Instructions None needed. Anesthesiology Discharge Order Discharge Order Patient is doing well, no complaints, stable vital signs, no apparent adverse anesthesia problems. No complications reported per nursing. DANTE REYNA CRNA Aug 16, 2021 14:41
--- NOTE | 2021-08-16 18:52 | OPERATIVE REPORT ---
DATE OF SERVICE: 08/16/2021 PREOPERATIVE DIAGNOSES: Nausea, vomiting, epigastric abdominal pain. POSTOPERATIVE DIAGNOSES: Small hiatal hernia, slight gastritis. PROCEDURE: EGD with biopsies. SURGEON: Kim Ly DO ANESTHESIA: Per LABOR EMPLOYMENT ASSOCIATE. ESTIMATED BLOOD LOSS: None. COMPLICATIONS: None. INDICATIONS: The patient is a 26-year-old male with epigastric abdominal pain, nausea and vomiting. He understood risks and benefits of procedure and wishes to proceed. Consent was signed in the chart. DESCRIPTION OF PROCEDURE: The patient was taken to the endoscopy suite, placed in left lateral recumbent position. Timeout was performed. Scope was inserted in mouth, down the esophagus, stomach and into the duodenum without difficulty. There were no polyps, masses or ulcerations within the duodenum. Scope was slowly retracted back into the stomach where it was further insufflated. Slight erythematous changes present was some slight gastritis appearance. Biopsy of the antrum was obtained. Scope was retroflexed noting a small hiatal hernia and also gastric polyps. Scope was returned to its normal position, slowly withdrawn to distal esophagus. Biopsy of GE junction was obtained. No polyps, masses or ulcerations. Scope was slowly retracted back until completely removed. The patient tolerated the procedure well without any complications. He was taken to recovery room in stable condition. RECOMMENDATIONS: The patient will continue on current medications. He will follow up in 2 weeks and continue on current medications and see how he is doing at that time. CC: Low Howell - requested, unable to deliver. Job ID: [id number] DocumentID: [id number] Dictated Date: 08/16/2021 14:19:36 Merchandise Planning Manager Date: 08/16/2021 18:51:19 Dictated By: KIM LY DO
== END 2021-08-16 15:00 | disposition home or self-care (01) ==
LOC: ENDO 11:37
PROVIDERS: ATTEND Surgery
DX: K21.00 Gastro-esophageal reflux disease with esophagitis, without bleeding (principal); K44.9 Diaphragmatic hernia without obstruction or gangrene; I10 Essential (primary) hypertension; K31.9 Disease of stomach and duodenum, unspecified; E66.9 Obesity, unspecified; Z68.42 Body mass index [BMI] 45.0-49.9, adult; Z79.899 Other long term (current) drug therapy; Z79.82 Long term (current) use of aspirin; Z90.49 Acquired absence of other specified parts of digestive tract

== ENCOUNTER 2021-08-27 19:00 | Emergency (ER) | payer MEDICARE, MEDICAID ==
[2021-08-27 19:40] VITALS: BP 136/77
[2021-08-27 20:07] LABS: BASOPHILS # (AUTO) 0.1 10^3/uL (0.0-0.1); BASOPHILS % (AUTO) 1 % (0-10); EOSINOPHILS # (AUTO) 0.1 10^3/uL (0.0-0.3); EOSINOPHILS % (AUTO) 1 % (0-10); HEMATOCRIT 44 % (40-54); HEMOGLOBIN 15.1 g/dL (13.3-17.7); LYMPHOCYTES # (AUTO) 6.1 10^3/uL (1.0-4.0); LYMPHOCYTES % (AUTO) 39 % (12-44); MEAN CORPUSCULAR HEMOGLOBIN 28 pg (25-34); MEAN CORPUSCULAR HGB CONC 34 g/dL (32-36); MEAN CORPUSCULAR VOLUME 82 fL (80-99); MEAN PLATELET VOLUME 11.1 fL (9.0-12.2); MONOCYTES # (AUTO) 0.8 10^3/uL (0.0-1.0); MONOCYTES % (AUTO) 5 % (0-12); NEUTROPHILS # (AUTO) 8.2 10^3/uL (1.8-7.8); NEUTROPHILS % (AUTO) 53 % (42-75); PLATELET COUNT 390 10^3/uL (130-400); WHITE BLOOD COUNT 15.5 10^3/uL (4.3-11.0)
[2021-08-27 20:09] LABS: BILIRUBIN,URINE NEGATIVE (NEGATIVE); CLARITY,URINE CLEAR; COLOR,URINE YELLOW; GLUCOSE, URINE (UA) NEGATIVE (NEGATIVE); KETONES,URINE NEGATIVE (NEGATIVE); LEUKOCYTE ESTERASE ,URINE NEGATIVE (NEGATIVE); NITRITE,URINE NEGATIVE (NEGATIVE); PROTEIN,URINE NEGATIVE (NEGATIVE)
[2021-08-27 20:16] LABS: BACTERIA,URINE NEGATIVE /HPF; SQUAMOUS EPITHELIAL CELL,UR 0-2 /HPF; WBC,URINE RARE /HPF
[2021-08-27 20:28] LABS: ALANINE AMINOTRANSFERASE 69 U/L (0-55); ALBUMIN 4.7 GM/DL (3.2-4.5); ALKALINE PHOSPHATASE 79 U/L (40-136); BILIRUBIN,TOTAL 0.5 MG/DL (0.1-1.0); BUN/CREATININE RATIO 13; CALCIUM 9.7 MG/DL (8.5-10.1); CARBON DIOXIDE 21 MMOL/L (21-32); CHLORIDE 101 MMOL/L (98-107); CREATININE SERUM 1.12 MG/DL (0.60-1.30); GFR ESTIMATED 79; GLUCOSE 97 MG/DL (70-105); POTASSIUM 3.4 MMOL/L (3.6-5.0); SODIUM 136 MMOL/L (135-145); TOTAL PROTEIN 7.8 GM/DL (6.4-8.2)
--- NOTE | 2021-08-27 20:29 | Diagnostic Imaging Report ---
EXAMINATION: Chest radiograph, portable AP view. DATE: 08/27/2021 8:11 PM INDICATION: 26-year-old male, chest pain. COMPARISON: December 30, 2020. FINDINGS: Heart size and mediastinal contours are unremarkable. There is no identified pneumothorax. There is no large pleural effusion. There is no identified focal airspace consolidation. IMPRESSION: No identified acute cardiopulmonary abnormality. Dictated by: Dictated on workstation # [id number]
[2021-08-27 20:38] LABS: LYMPHOCYTES % (MANUAL) 39 %; MONOCYTES % (MANUAL) 8 %; NEUTROPHILS % (MANUAL) 53 %; RBC MORPH NORMAL
[2021-08-27] MEDS ORDERED: ANTACID SUSP 30 ML UDC (MYLANTA) PO ONE (20:45)
[2021-08-27] MEDS ORDERED: LIDOCAINE 2% VISCOUS 15 ML UDC PO ONE (20:45)
--- NOTE | 2021-08-27 21:05 | ED GI ---
General Chief Complaint: Abdominal/GI Problems Stated Complaint: INTERMITTENT CP/ABD PAIN/PALPITATIONS/NAUSEA Nursing Triage Note: Pt arrives via POV from home for c/o ABD pain; chest pain; N/V/D; et generalized weakness. Pt has been seen multiple times recently in ED for similar c/o. Mother reports pt had endoscopy last week, states it showed a small hiatal hernia but otherwise normal. Pt has F/U with Dr. Ibrahim tomorrow at 1500, but mother would like pt evaluated today. Source of Information: Patient Exam Limitations: No Limitations (TANVIR HOOD APRN) History of Present Illness Date Seen by Provider: Aug 27, 2021 Time Seen by Provider: 21:02 Initial Comments 26-year-old autistic male to ER by private vehicle accompanied by mother with reports of nausea and abdominal pain as well as diarrhea. He had 7 loose stools today. These were yellowish in color. History laparoscopic cholecystectomy. Had a EGD done with Dr. Ibrahim recently and has follow-up scheduled tomorrow. This evening he developed some palpitations. Mother states that the symptoms seem to start after starting the lisinopril/HCTZ. Symptoms were not present when he was just on the lisinopril. Timing/Duration: 1-2 Days Severity/Quality: Moderate Radiation: No Radiation Activities at Onset: None Associated Symptoms: Nausea/Vomiting (TANVIR HOOD APRN) Allergies and Home Medications Allergies Coded Allergies: oxcarbazepine (Unverified Allergy, Severe, RASH, 09/17/14) Patient Home Medication List Home Medication List Reviewed: Yes (TANVIR HOOD APRN) Aspirin (Aspirin) 81 Mg Tab.chew, 81 MG PO HS, (Reported) Entered as Reported by: AMANDEEP LAZO on 02/21/21 0909 Clomipramine HCl (Clomipramine HCl) 25 Mg Capsule, 25 MG PO HS, (Reported) Entered as Reported by: TU KRISHNAN on 09/17/16 09 Dicyclomine HCl (Dicyclomine HCl) 20 Mg Tablet, 20 MG PO TID Prescribed by: TANVIR HOOD on 08/27/212109 Guanfacine HCl (Guanfacine HCl ER) 3 Mg Tab.er.24h, 3 MG PO HS, (Reported) Entered as Reported by: TU KRISHNAN on 09/17/16 0954 Lisinopril (Lisinopril) 20 Mg Tablet, 20 MG PO DAILY Prescribed by: TANVIR HOOD on 08/27/212107 Lisinopril (Lisinopril) 20 Mg Tablet, 20 MG PO DAILY Prescribed by: TANVIR HOOD on 08/27/212109 Lisinopril/Hydrochlorothiazide (Lisinopril-Hctz 10-12.5 mg Tab) 1 Each Tablet, 1 EA PO DAILY, (Reported) Entered as Reported by: RHETT LERMA on 07/09/21 1024 Pantoprazole Sodium (Protonix) 40 Mg Tablet.dr, 40 MG PO DAILY Prescribed by: RANDY BANERJEE on 08/13/212131 Promethazine HCl (Promethazine Tablet) 25 Mg Tablet, 25 MG PO Q6H PRN for NAUSEA/VOMITING Prescribed by: CHANA SHAIKH on 07/29/212233 Sucralfate (Carafate) 1 Gm Tablet, 1 GM PO QID Prescribed by: RANDY BANERJEE on 08/13/212131 Topiramate (Topiramate) 200 Mg Tablet, 200 MG PO HS, (Reported) Entered as Reported by: TU KRISHNAN on 09/17/16 0954 [Latuda] 60 TAB, 60 MG PO HS, (Reported) Entered as Reported by: RHETT LERMA on 07/09/21 1024 Review of Systems Review of Systems Constitutional: see HPI EENTM: No Symptoms Reported Respiratory: No Symptoms Reported Cardiovascular: No Symptoms Reported Gastrointestinal: See HPI, Abdominal Pain, Nausea Genitourinary: No Symptoms Reported Musculoskeletal: no symptoms reported Skin: no symptoms reported Psychiatric/Neurological: No Symptoms Reported Endocrine: No Symptoms Reported Hematologic/Lymphatic: No Symptoms Reported (TANVIR HOOD APRN) Past Iwxrsyq-Tbfdyt-Bpxjqh Hx Patient Social History Tobacco Use?: No Use of E-Cig and/or Vaping dev: No Substance use?: No Alcohol Use?: No Pt feels they are or have been: No (TANVIR HOOD APRN) Immunizations Up To Date Tetanus Booster (TDap): Unknown PED Vaccines UTD: No Influenza Vaccine Up-to-Date: Yes; Up-to-Date First/Initial COVID19 Vaccinat: 10/21 Second COVID19 Vaccination Arnoldo: 11/18 Third COVID19 Vaccination Date: JULY 2021 COVID19 Vaccine Dress Shoe Inspector: [facility] [place] (TANVIR HOOD APRN) Seasonal Allergies Seasonal Allergies: No (TANVIR HOOD APRN) Past Medical History Surgery/Hospitalization HX: SX: GALLBLADDER 02/21/[address] IBRAHIM PMH: AUTISM, HTN, MALAVE, UTI, PYLONEPHRITIS Surgeries: Yes (BMT'S) Ear Surgery, Gallbladder Respiratory: No Cardiac: Yes Hypertension Neurological: Yes (AUTISTIC) Developmental Disorder, Headaches /Migraines Reproductive Disorders: No Sexually Transmitted Disease: No Genitourinary: Yes (PYLONEPHRITIS) Bladder Infection Gastrointestinal: Yes (non-alcholic fatty liver; CHOLECYSTECTOMY 02/21/21) Gastroesophageal Reflux, Liver Disease/Jaundice, Gall Bladder Disease, Irritable Bowel Musculoskeletal: No Endocrine: Yes (OBESITY) HEENT: Yes (S/P BMT'S) Chronic Ear Infection Cancer: No Psychosocial: Yes (AUTISM) ADD/ADHD, Anxiety, Depression Integumentary: No Blood Disorders: No Adverse Reaction/Blood Tranf: No (TANVIR HOOD APRN) Family Medical History AIDS 19 FATHER Asthma G8 BROTHER Myocardial infarction 19 FATHER Physical Exam Vital Signs Vital Signs - First Documented 08/27/21 19:40 Temp 36.0 Pulse 76 Resp 18 B/P (MAP) 136/77 (96) Pulse Ox 98 O2 Delivery Room Air (CHRISS,RANDY K DO) Vital Signs Capillary Refill : Less Than 3 Seconds (TANVIR HOOD APRN) Height/Weight/BMI Height: 5'10.00" Weight: 339lbs. 7.0oz. [age]yo; 46.23 BMI Method:Stated General Appearance: WD/WN, no apparent distress HEENT: PERRL/EOMI, normal ENT inspection Neck: non-tender, full range of motion Respiratory: no respiratory distress, no accessory muscle use Cardiovascular: regular rate, rhythm, no murmur Gastrointestinal: normal bowel sounds, non tender, soft Extremities: normal range of motion, non-tender Neurologic/Psychiatric: alert, normal mood/affect, oriented x 3 Skin: normal color, warm/dry (TANVIR HOOD APRN) Progress/Results/Core Measures Results/Orders Lab Results Laboratory Tests Test 08/27/21 19:48 08/27/21 19:55 08/27/21 19:56 Range/Units Urine Color YELLOW Urine Clarity CLEAR Urine pH 6.0 5-9 Urine Specific [place] <=1.005 1.016-1.022 Urine Protein NEGATIVE NEGATIVE Urine Glucose (UA) NEGATIVE NEGATIVE Urine Ketones NEGATIVE NEGATIVE Urine Nitrite NEGATIVE NEGATIVE Urine Bilirubin NEGATIVE NEGATIVE Urine Urobilinogen 0.2 < = 1.0 MG/DL Urine Leukocyte Esterase NEGATIVE NEGATIVE Urine RBC (Auto) NEGATIVE NEGATIVE Urine RBC NONE /HPF Urine WBC RARE /HPF Urine Squamous Epithelial Cells 0-2 /HPF Urine Renal Epithelial Cells NONE /HPF Urine Crystals NONE /LPF Urine Bacteria NEGATIVE /HPF Urine Casts NONE /LPF Urine Mucus NEGATIVE /LPF Urine Culture Indicated NO White Blood Count 15.5 H 4.3-11.0 10^3/uL Red Blood Count 5.38 4.30-5.52 10^6/uL Hemoglobin 15.1 13.3-17.7 g/dL Hematocrit 44 40-54 % Mean Corpuscular Volume 82 80-99 fL Mean Corpuscular Hemoglobin 28 25-34 pg Mean Corpuscular Hemoglobin Concent 34 32-36 g/dL Red Cell Distribution Width 12.8 10.0-14.5 % Platelet Count 390 130-400 10^3/uL Mean Platelet Volume 11.1 9.0-12.2 fL Immature Granulocyte % (Auto) 1 % Neutrophils (%) (Auto) 53 42-75 % Lymphocytes (%) (Auto) 39 12-44 % Monocytes (%) (Auto) 5 0-12 % Eosinophils (%) (Auto) 1 0-10 % Basophils (%) (Auto) 1 0-10 % Neutrophils # (Auto) 8.2 H 1.8-7.8 10^3/uL Lymphocytes # (Auto) 6.1 H 1.0-4.0 10^3/uL Monocytes # (Auto) 0.8 0.0-1.0 10^3/uL Eosinophils # (Auto) 0.1 0.0-0.3 10^3/uL Basophils # (Auto) 0.1 0.0-0.1 10^3/uL Immature Granulocyte # (Auto) 0.2 H 0.0-0.1 10^3/uL Neutrophils % (Manual) 53 % Lymphocytes % (Manual) 39 % Monocytes % (Manual) 8 % Blood Morphology Comment NORMAL Sodium Level 136 135-145 MMOL/L Potassium Level 3.4 L 3.6-5.0 MMOL/L Chloride Level 101 98-107 MMOL/L Carbon Dioxide Level 21 21-32 MMOL/L Anion Gap 14 5-14 MMOL/L Blood Urea Nitrogen 14 7-18 MG/DL Creatinine 1.12 0.60-1.30 MG/DL Estimat Glomerular Filtration Rate 79 BUN/Creatinine Ratio 13 Glucose Level 97 70-105 MG/DL Calcium Level 9.7 8.5-10.1 MG/DL Corrected Calcium 8.5-10.1 MG/DL Total Bilirubin 0.5 0.1-1.0 MG/DL Aspartate Amino Transf (AST/SGOT) 30 5-34 U/L Alanine Aminotransferase (ALT/SGPT) 69 H 0-55 U/L Alkaline Phosphatase 79 40-136 U/L Troponin I < 0.028 <0.028 NG/ML C-Reactive Protein High Sensitivity 0.96 H 0.00-0.50 MG/DL Total Protein 7.8 6.4-8.2 GM/DL Albumin 4.7 H 3.2-4.5 GM/DL Procalcitonin 0.06 <0.10 NG/ML Glucometer 94 70-110 MG/DL (ALBER BANERJEEA Ortiz DO) Medications Given in ED Current Medications Medications Dose Ordered Sig/Patricia Route Start Time Stop Time Status Last Admin Dose Admin Al Hydrox/Mg Hydrox/Simethicone 30 ml ONCE ONCE PO 08/27/21 20:45 08/27/21 20:46 DC 08/27/21 20:53 30 ML Lidocaine HCl 15 ml ONCE ONCE PO 08/27/21 20:45 08/27/21 20:46 DC 08/27/21 20:53 15 ML (CHRISSRANDY K DO) Vital Signs/I&O 08/27/21 19:40 Temp 36.0 Pulse 76 Resp 18 B/P (MAP) 136/77 (96) Pulse Ox 98 O2 Delivery Room Air (CHRISSRANDY K DO) Blood Pressure Mean: 96 FSBG Bedside Testing Finger Stick Blood Glucose: 94 (TANVIR HOOD APRN) Departure Communication (Admissions) Mother attributes his symptoms potentially to the HCTZ. He is on lisinopril/HCTZ 10/12.5 mg daily. I will give him a few days worth of plain lisinopril at a little higher dose 20 mg instead of 10 to see if his symptoms improve. He is in absolutely no distress here, smiling during conversation. He does report that his chest still hurts. His heart rate is in the 80s sinus blood pressure 120/87. No improvement after the GI cocktail. Mother reports that he is anxious and irritable bowel syndrome is certainly a possibility. Might be worthwhile to try some Bentyl. (TANVIR HOOD APRN) Impression Primary Impression: Nausea vomiting and diarrhea Disposition: HOME, SELF-CARE Condition: Stable Departure-Patient Inst. Decision time for Depature: 21:05 (TANVIR HOOD APRN) Referrals: RHETT DUFF DO (PCP/Family) Primary Care Physician Patient Instructions: IRRITABLE BOWEL SYNDROME Add. Discharge Instructions: 1. You can stop the lisinopril/HCTZ and switch to just the lisinopril at a higher dose. This may or may not be related to his symptoms. If they do not improve then it would be a good idea to just go back to the lisinopril/HCTZ since we know that this works well for his blood pressure. May also be related to irritable bowel syndrome. The medication called dicyclomine is worth a trial to see if it helps with his symptoms. All discharge instructions reviewed with patient and/or family. Voiced understanding. Scripts Lisinopril (Lisinopril) 20 Mg Tablet 20 MG PO DAILY, #10 TAB Prov: TANVIR HOOD APRN 08/27/21 Dicyclomine HCl (Dicyclomine HCl) 20 Mg Tablet 20 MG PO TID, #14 TAB Prov: TANVIR HOOD APRN 08/27/21 Lisinopril (Lisinopril) 20 Mg Tablet 20 MG PO DAILY, #10 TAB Prov: TANVIR HOOD APRN 08/27/21 ATTENDING PHYSICIAN NOTE: I WAS PHYSICALLY PRESENT ER PHYSICIAN WHEN THIS PATIENT WAS IN ER, BUT I WAS NOT INVOLVED IN ANY DECISION MAKING OR ANY CARE OF THIS PATIENT. (RANDY BANERJEE DO) Copy Copies To 1: KIM IBRAHIM PETER J APRN Aug 27, 2021 21:05 RANDY BANERJEE DO Aug 28, 2021 04:10
[2021-08-27] MEDS ORDERED: LISI20TA26 PO ×2 (21:08→21:10)
[2021-08-27] MEDS ORDERED: DICY20TA PO (21:10)
== END 2021-08-27 21:33 | disposition home or self-care (01) ==
LOC: EDUNIT# 19:00 → ER 19:03
DX: R11.2 Nausea with vomiting, unspecified (principal); R19.7 Diarrhea, unspecified; I10 Essential (primary) hypertension; F84.0 Autistic disorder; F41.9 Anxiety disorder, unspecified; F32.9 Major depressive disorder, single episode, unspecified; F90.9 Attention-deficit hyperactivity disorder, unspecified type; F89 Unspecified disorder of psychological development; G43.909 Migraine, unspecified, not intractable, without status migrainosus; K21.9 Gastro-esophageal reflux disease without esophagitis; E66.9 Obesity, unspecified; Z90.49 Acquired absence of other specified parts of digestive tract; Z88.8 Allergy status to other drugs, medicaments and biological substances; Z79.82 Long term (current) use of aspirin; Z79.899 Other long term (current) drug therapy
CPT/HCPCS: 36415; 71045; 80053; 81000; 82947; 84145; 84484; 85007; 85027; 86141; 93005

== ENCOUNTER 2021-09-05 18:24 | Emergency (ER) | payer MEDICARE, MEDICAID ==
[~2021-09-05] VITALS: Ht 180 cm; Wt 147.0 kg
[~2021-09-05 18:24] MED LIST changes: +DICY20TA PO; +LISI20TA26 PO
[2021-09-05 18:43] LABS: BILIRUBIN,URINE NEGATIVE (NEGATIVE); CLARITY,URINE CLEAR; COLOR,URINE YELLOW; GLUCOSE, URINE (UA) NEGATIVE (NEGATIVE); KETONES,URINE NEGATIVE (NEGATIVE); LEUKOCYTE ESTERASE ,URINE NEGATIVE (NEGATIVE); NITRITE,URINE NEGATIVE (NEGATIVE); PH,URINE 7.5 (5-9); PROTEIN,URINE NEGATIVE (NEGATIVE)
--- NOTE | 2021-09-05 18:46 | ED GU-Male ---
General Chief Complaint: - Reproductive Stated Complaint: UTI SYMPTOMS Nursing Triage Note: ARRIVED VIA AMB TO [facility] WITH COMPLAINTS OF BILAT LOWER ABD PAIN. STATES HE THINKS IT IS URINARY. WAS SEEN HERE A WHILE AGO AND NOTIFIED BY LETTER TO CALL THE ER FOR TREATMENT AFTER A CX. Source: patient, family Exam Limitations: no limitations (SURJIT MULLIGAN) History of Present Illness Date Seen by Provider: Sep 05, 2021 Time Seen by Provider: 18:44 Initial Comments Patient is a 26-year-old male who presents ED with bilateral flank pain with frequent urination and dysuria. Symptoms over the past 20 days. He was seen here in the ER with negative UTI. Cultures returned Enterococcus faecalis. Patient reports continued burning with urination and frequent urination. Noted odor to his urine. No vomiting or diarrhea. Mild bilateral flank discomfort. Denies chest pain, cough, fever, headache, dizziness. Mother at bedside. (SURJIT MULLIGAN) Allergies and Home Medications Allergies Coded Allergies: oxcarbazepine (Unverified Allergy, Severe, RASH, 09/17/14) Patient Home Medication List Home Medication List Reviewed: Yes (SURJIT MULLIGAN) Aspirin (Aspirin) 81 Mg Tab.chew, 81 MG PO HS, (Reported) Entered as Reported by: AMANDEEP LAZO on 02/21/21 0909 Clomipramine HCl (Clomipramine HCl) 25 Mg Capsule, 25 MG PO HS, (Reported) Entered as Reported by: TU KRISHNAN on 09/17/16 0954 Dicyclomine HCl (Dicyclomine HCl) 20 Mg Tablet, 20 MG PO TID Prescribed by: TANVIR HOOD on 08/27/212109 Guanfacine HCl (Guanfacine HCl ER) 3 Mg Tab.er.24h, 3 MG PO HS, (Reported) Entered as Reported by: TU KRISHNAN on 09/17/16 0954 Lisinopril (Lisinopril) 20 Mg Tablet, 20 MG PO DAILY Prescribed by: TANVIR HOOD on 08/27/212107 Lisinopril (Lisinopril) 20 Mg Tablet, 20 MG PO DAILY Prescribed by: TANVIR HOOD on 08/27/212109 Lisinopril/Hydrochlorothiazide (Lisinopril-Hctz 10-12.5 mg Tab) 1 Each Tablet, 1 EA PO DAILY, (Reported) Entered as Reported by: RHETT LERMA on 07/09/21 1024 Nitrofurantoin Monohyd/M-Cryst (Macrobid 100 mg Capsule) 100 Mg Capsule, 1 TAB PO BID Prescribed by: CHANA SHAIKH on 09/05/211901 Pantoprazole Sodium (Protonix) 40 Mg Tablet.dr, 40 MG PO DAILY Prescribed by: RANDY BANERJEE on 08/13/212131 Promethazine HCl (Promethazine Tablet) 25 Mg Tablet, 25 MG PO Q6H PRN for NAUSEA/VOMITING Prescribed by: CHANA SHAIKH on 07/29/212233 Sucralfate (Carafate) 1 Gm Tablet, 1 GM PO QID Prescribed by: RANDY BANERJEE on 08/13/212131 Topiramate (Topiramate) 200 Mg Tablet, 200 MG PO HS, (Reported) Entered as Reported by: TU KRISHNAN on 09/17/16 0954 [Latuda] 60 TAB, 60 MG PO HS, (Reported) Entered as Reported by: RHETT LERMA on 07/09/21 1024 Review of Systems Review of Systems Constitutional: No chills, No diaphoresis, No dizziness, No fever EENTM: No ear discharge, No hearing loss, No mouth pain, No mouth swelling Respiratory: No cough, No orthopnea, No short of breath Cardiovascular: No chest pain, No edema Gastrointestinal: abdominal pain; No diarrhea, No nausea, No vomiting Genitourinary: dysuria, frequency, flank pain Musculoskeletal: No back pain, No gout, No joint pain Skin: No change in color, No change in hair/nails (SURJIT MULLIGAN) All Other Systemes Reviewed Negative Unless Noted: Yes (SURJIT MULLIGAN) Past Mollmuk-Ylllgx-Vjvbsh Hx Patient Social History Tobacco Use?: No Alcohol Use?: Yes Alcohol type: Beer Alcohol Frequency: Once in a while (SURJIT MULLIGAN) Immunizations Up To Date Tetanus Booster (TDap): Unknown PED Vaccines UTD: No First/Initial COVID19 Vaccinat: 10/21 Second COVID19 Vaccination Arnoldo: 11/18 Third COVID19 Vaccination Date: JULY 2021 COVID19 Vaccine 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 IBRAHIM PMH: AUTISM, HTN, MALAVE, UTI, PYLONEPHRITIS Surgeries: Yes (BMT'S) Ear Surgery, Gallbladder Respiratory: No Cardiac: Yes Hypertension Neurological: Yes (AUTISTIC) Developmental Disorder, Headaches /Migraines Reproductive Disorders: No Sexually Transmitted Disease: No Genitourinary: Yes (PYLONEPHRITIS) Bladder Infection Gastrointestinal: Yes (non-alcholic fatty liver; CHOLECYSTECTOMY 02/21/21) Gastroesophageal Reflux, Liver Disease/Jaundice, Gall Bladder Disease, Irritable Bowel Musculoskeletal: No Endocrine: Yes (OBESITY) HEENT: Yes (S/P BMT'S) Chronic Ear Infection Cancer: No Psychosocial: Yes (AUTISM) ADD/ADHD, Anxiety, Depression Integumentary: No Blood Disorders: No Adverse Reaction/Blood Tranf: No (SURJIT MULLIGAN) Family Medical History AIDS 19 FATHER Asthma G8 BROTHER Myocardial infarction 19 FATHER Physical Exam Vital Signs Vital Signs - First Documented 09/05/21 18:30 Pulse 58 Resp 16 B/P (MAP) 138/80 (99) Pulse Ox 100 O2 Delivery Room Air (CHRISS,RANDY K DO) Vital Signs Capillary Refill : Less Than 3 Seconds (SURJIT MULLIGAN) Height, Weight, BMI Height: 5'10.00" Weight: 339lbs. 7.0oz. 153.277383nl; 45.00 BMI Method:Stated General Appearance: WD/WN, no apparent distress HEENT: PERRL/EOMI, normal ENT inspection, TMs normal, pharynx normal Neck: non-tender, full range of motion, normal inspection Cardiovascular: regular rate, rhythm, no edema, no gallop, no JVD, no murmur Respiratory: chest non-tender, lungs clear, normal breath sounds Gastrointestinal: normal bowel sounds, non tender, soft, no organomegaly Back: normal inspection, no CVA tenderness, no vertebral tenderness Extremities: normal range of motion (SURJIT MULLIGAN) Progress/Results/Core Measures Suspected Sepsis SIRS Temperature: Pulse: 58 Respiratory Rate: 16 Blood Pressure 138 /80 Mean: 99 (SURJIT MULLIGAN) Results/Orders Lab Results Laboratory Tests Test 09/05/21 18:34 Range/Units Urine Color YELLOW Urine Clarity CLEAR Urine pH 7.5 5-9 Urine Specific [place] 1.010 L 1.016-1.022 Urine Protein NEGATIVE NEGATIVE Urine Glucose (UA) NEGATIVE NEGATIVE Urine Ketones NEGATIVE NEGATIVE Urine Nitrite NEGATIVE NEGATIVE Urine Bilirubin NEGATIVE NEGATIVE Urine Urobilinogen 0.2 < = 1.0 MG/DL Urine Leukocyte Esterase NEGATIVE NEGATIVE Urine RBC (Auto) NEGATIVE NEGATIVE Urine RBC NONE /HPF Urine WBC NONE /HPF Urine Squamous Epithelial Cells 0-2 /HPF Urine Crystals NONE /LPF Urine Bacteria TRACE /HPF Urine Casts NONE /LPF Urine Mucus NEGATIVE /LPF Urine Culture Indicated NO Urine Test NEGATIVE (RANDY BANERJEE DO) Vital Signs/I&O 09/05/21 18:30 Pulse 58 Resp 16 B/P (MAP) 138/80 (99) Pulse Ox 100 O2 Delivery Room Air (RANDY BANERJEE DO) Vital Signs/I&O Capillary Refill : Less Than 3 Seconds (SURJIT MULLIGAN) Blood Pressure Mean: 99 Departure Communication (Admissions) Patient urinalysis without strong evidence of infection. Vital signs stable. Does not appear toxic. No abdominal tenderness or flank tenderness. Reports frequent urination with burning with odor. Patient recent positive urine culture with Enterococcus faecalis. Multiorganisms noticed as well. Due to patient's current symptoms will discharge with nitrofurantoin which the bacteria is susceptible to after reviewing the culture. Continue with anti- inflammatories for pain. Follow-up with your PCP in 2 to 3 days for reevaluation. Return precaution were discussed. (SURJIT MULLIGAN) Impression Primary Impression: Dysuria Disposition: 01 HOME, SELF-CARE Condition: Stable Departure-Patient Inst. Decision time for Depature: 19:01 (SURJIT MULLIGAN) Referrals: RHETT DUFF DO (PCP/Family) Primary Care Physician Patient Instructions: Dysuria, Adult (DC) Scripts Nitrofurantoin Monohyd/M-Cryst (Macrobid 100 mg Capsule) 100 Mg Capsule 1 TAB PO BID for 5 Days, #10 CAP Prov: SURJIT MULLIGAN 09/05/21 ATTENDING PHYSICIAN NOTE: I WAS PHYSICALLY PRESENT ER PHYSICIAN WHEN THIS PATIENT WAS IN ER, BUT I WAS NOT INVOLVED IN ANY DECISION MAKING OR ANY CARE OF THIS PATIENT. (RANDY BANERJEE DO) SURJIT MULLIGAN Sep 05, 2021 18:46 RANDY BANERJEE DO Sep 06, 2021 03:51
[2021-09-05 18:51] LABS: BACTERIA,URINE TRACE /HPF; SQUAMOUS EPITHELIAL CELL,UR 0-2 /HPF
[2021-09-05] MEDS ORDERED: NITR-65 PO (19:02)
[2021-09-05 19:20] VITALS: BP 134/79
== END 2021-09-05 19:20 | disposition home or self-care (01) ==
LOC: EDUNIT# 18:24 → ER 18:26
DX: R30.0 Dysuria (principal); I10 Essential (primary) hypertension; K21.9 Gastro-esophageal reflux disease without esophagitis; F41.9 Anxiety disorder, unspecified; F32.9 Major depressive disorder, single episode, unspecified; E66.9 Obesity, unspecified; F84.0 Autistic disorder; Z68.42 Body mass index [BMI] 45.0-49.9, adult; Z79.899 Other long term (current) drug therapy; Z79.82 Long term (current) use of aspirin
CPT/HCPCS: 81000; 84703; 99282

== ENCOUNTER 2022-09-30 19:08 | Emergency (ER) | payer MEDICARE, MEDICAID ==
[~2022-09-30] VITALS: Ht 177.8 cm; Wt 156.5 kg
[~2022-09-30 19:08] MED LIST changes: +LURA40TA2 PO; -LURA40TA3 PO; +NITR-65 PO
[2022-09-30 21:29] LABS: BASOPHILS # (AUTO) 0.1 10^3/uL (0.0-0.1); BASOPHILS % (AUTO) 1 % (0-10); EOSINOPHILS # (AUTO) 0.1 10^3/uL (0.0-0.3); EOSINOPHILS % (AUTO) 1 % (0-10); HEMATOCRIT 45 % (40-54); LYMPHOCYTES # (AUTO) 5.9 10^3/uL (1.0-4.0); LYMPHOCYTES % (AUTO) 42 % (12-44); MEAN CORPUSCULAR HEMOGLOBIN 28 pg (25-34); MEAN CORPUSCULAR HGB CONC 33 g/dL (32-36); MEAN CORPUSCULAR VOLUME 83 fL (80-99); MEAN PLATELET VOLUME 10.7 fL (9.0-12.2); MONOCYTES # (AUTO) 0.8 10^3/uL (0.0-1.0); MONOCYTES % (AUTO) 6 % (0-12); NEUTROPHILS # (AUTO) 7.2 10^3/uL (1.8-7.8); NEUTROPHILS % (AUTO) 51 % (42-75); PLATELET COUNT 294 10^3/uL (130-400); WHITE BLOOD COUNT 14.2 10^3/uL (4.3-11.0)
[2022-09-30 21:42] LABS: ALBUMIN 4.5 GM/DL (3.2-4.5); CHLORIDE 109 MMOL/L (98-107); POTASSIUM 3.3 MMOL/L (3.6-5.0); SODIUM 140 MMOL/L (135-145)
[2022-09-30 21:44] LABS: CALCIUM 9.3 MG/DL (8.5-10.1)
[2022-09-30 21:45] LABS: GLUCOSE 96 MG/DL (70-105); TOTAL PROTEIN 7.5 GM/DL (6.4-8.2)
[2022-09-30 21:46] LABS: CARBON DIOXIDE 18 MMOL/L (21-32)
[2022-09-30 21:47] LABS: BILIRUBIN,TOTAL 0.6 MG/DL (0.1-1.0)
[2022-09-30 21:49] LABS: ALKALINE PHOSPHATASE 74 U/L (40-136); CREATININE SERUM 1.08 MG/DL (0.60-1.30); GFR ESTIMATED 96
[2022-09-30 21:50] LABS: BUN/CREATININE RATIO 9
[2022-09-30 21:51] LABS: BILIRUBIN,URINE 1+ (NEGATIVE); CLARITY,URINE SL CLOUDY; COLOR,URINE YELLOW; GLUCOSE, URINE (UA) NEGATIVE (NEGATIVE); KETONES,URINE NEGATIVE (NEGATIVE); LEUKOCYTE ESTERASE ,URINE NEGATIVE (NEGATIVE); NITRITE,URINE NEGATIVE (NEGATIVE); PH,URINE 5.5 (5-9); PROTEIN,URINE NEGATIVE (NEGATIVE)
[2022-09-30 21:51] LABS: SALICYLATE < 5.0 MG/DL (5.0-20.0)
[2022-09-30 21:52] LABS: ALANINE AMINOTRANSFERASE 66 U/L (0-55)
[2022-09-30 22:00] LABS: ACETAMINOPHEN < 10 UG/ML (10-30)
[2022-09-30 22:04] LABS: AMPHETAMINE SCREEN, URINE NEGATIVE (NEGATIVE); BARBITURATE SCREEN URINE NEGATIVE (NEGATIVE); BENZODIAZEPINES SCREEN URINE NEGATIVE (NEGATIVE); CANNABINOID SCREEN, URINE NEGATIVE (NEGATIVE); COCAINE SCREEN URINE NEGATIVE (NEGATIVE); METHADONE STAT NEGATIVE (NEGATIVE); OPIATE SCREEN URINE NEGATIVE (NEGATIVE); OXYCODONE STAT NEGATIVE (NEGATIVE); PROPOXYPHENE STAT NEGATIVE (NEGATIVE); TRICYCLIC ANTIDEPRESSANTS SCRE NEGATIVE (NEGATIVE)
[2022-09-30 22:08] LABS: AMORPHOUS SEDIMENT,UR FEW AMOR URATES /LPF; BACTERIA,URINE TRACE /HPF; WBC,URINE RARE /HPF
[2022-09-30 22:09] LABS: HYALINE CASTS, URINE RARE /LPF
[2022-09-30 22:14] LABS: BAND NEUTROPHILS 1 %; EOSINOPHILS % (MANUAL) 1 %; LYMPHOCYTES % (MANUAL) 42 %; MONOCYTES % (MANUAL) 6 %; NEUTROPHILS % (MANUAL) 50 %; PLATELET ESTIMATE NORMAL; RBC MORPH NORMAL
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
[2022-09-30] MEDS ORDERED: KCL 20 MEQ TAB (K-DUR) PO ONE (23:45)
[2022-10-01] MEDS ORDERED: MELATONIN 3 MG TABLET PO STA (03:57)
[2022-10-01] MEDS ORDERED: KCL 20 MEQ TAB (K-DUR) PO ONE (04:15)
[2022-10-01 04:31] VITALS: BP 138/78
== END 2022-10-01 04:31 | disposition home or self-care (01) ==
LOC: EDUNIT# 19:08 → ER 19:10
DX: R45.851 Suicidal ideations (principal); D72.829 Elevated white blood cell count, unspecified; E87.6 Hypokalemia; E66.9 Obesity, unspecified; Z68.42 Body mass index [BMI] 45.0-49.9, adult
CPT/HCPCS: 80053; 80306; 81000; 85007; 85027; 99283; G0480 ×3; 36415; 80320; 80329